=== PATIENT | male | born 1950 | race Caucasian/White ===

== ENCOUNTER 2024-03-12 06:29 | Outpatient (REF) | payer MEDICARE, SELFPAY ==
[2024-03-12 07:02] LABS: Basophils Percent Auto 0.9 % (0-2); Eosinophils Absolute Auto 0.2 X10*3/uL (0.0-0.4); Eosinophils Percent Auto 6.9 % (0-4); Hematocrit 37.6 % (42.0-52.0); Hemoglobin 11.3 g/dl (14.0-18.0); Imm Gran Abs Auto 0.01 X10*3/uL (0.00-0.03); Imm Gran Pct Auto 0.3 % (0.0-0.4); Lymphocytes Absolute Auto 1.2 X10*3/uL (1.2-4.9); Lymphocytes Percent Auto 38.3 % (20-40); MANUAL DIFF FLAG SCAN; Mean Corpuscular HGB Conc 30.1 g/dl (31.0-36.0); Mean Corpuscular Hemoglobin 26.7 pg (27.0-33.0); Mean Corpuscular Volume 88.7 fL (80.0-98.0); Mean Platelet Volume 9.5 fL (9.4-12.4); Monocytes Absolute Auto 0.9 X10*3/uL (0.1-1.2); Neutrophils Absolute Auto 0.8 x10*3/uL (2.0-8.3); Neutrophils Percent Auto 24.6 % (45-73); Platelet Count 261 X10*3/uL (160-400); Red Blood Count 4.24 X10*6/uL (4.60-5.80); SCAN SMEAR FLAG 1; White Blood Count 3.2 X10*3/uL (4.8-10.8)
[2024-03-12 07:24] LABS: SLIDE REVIEW VERIFIED
== END 2024-03-12 06:30 | disposition home or self-care (01) ==
LOC: HO.MMNH1L 06:29
PROVIDERS: Visit Provider Nurse Practitioner
DX: M62.521 Muscle wasting and atrophy, not elsewhere classified, right upper arm (principal); E11.40 Type 2 diabetes mellitus with diabetic neuropathy, unspecified; N18.32 Chronic kidney disease, stage 3b
CPT/HCPCS: 36415; 80053; 85025

== ENCOUNTER 2024-05-18 06:59 | Outpatient (REF) | payer MEDICARE, SELFPAY ==
--- OUTSIDE RECORDS SUMMARY | 2024-05-18 07:02 | XMS_ITS | Data Portability ---
Author Organization [place] [facility] Address [address] [place] [address] Care Team Providers Care Teacher'S Aide Name Role Phone HYUN FALCON Primary Care Provider Assessment Encounter Date Assessment Date Assessment LastModified by Organization Details LastModified Time 12/20/2018 12/20/2018 Overview/History : 68 yo male new to and this provider; his PMH includes Diabetes, HTN, HLD, CKD; Patient presents with complain of dysuria, increased urinary frequency, cloudy and foul smelling urine X3d. Patient reports being diagnosed with UTI 10d ago and treated with macrobid for 5 days. Finished course of abx 7days ago; today reports symptoms are worsening. Denied fever, chills, nausea, vomiting, abdominal/back/f lank pain. Exam: VS: BP 160/80; HR 56; RR 18; SpO2 97%; temp 96.8F Patient is an obese male well appearing, no acute distress, non-toxic appearance; alert and oriented X4; ambulates independently without difficulty Heart sounds are regular rate and rhythm; no audible murmurs, rubs, or gallops No signs of respiratory distress. Lungs are clear to auscultation in all fileds Abdomen is soft, non tender, non distended. Bowel sounds are normoactive and present in all quadrants; No CVA or suprapubic tenderness Lower extremities without edema, erythema or cyanosis DDx considered, but not limited to: UTI - most likely dx based on clinical presentation; dysuria, urinary frequency, cloudy urine Pyonephritis - unlikely; no fever, chills, CVA tenderness BPH - unlikely; no prior hx; patient is followed by urology STI/candidiasis - unlikely; no penile rash or discharge Work up/Results: Urine dipstick - Leuk +3; Nitrates +3; Blood +3 Urine culture - pending; (reviewed urine cx from 12/10/18 - mixed becky, contaminated sample) Plan/Discussion: - patient was recently diagnosed with UTI and treated with macrobid; reviewed ED records: urine cx was contaminated; possible resistance to macrobid; Today urine dipstick is positive for leukocytes, nitrates, and blood; will order cx to assess for sensitivity - start Keflex 500mg PO TID X7d; first dose given on scene - advised drinking plenty of fluids to maintain hydration status - follow up with PCP as needed within 3-5 days or sooner if symptoms worsen or do not improve - advised to seek immediate medical attention/911/ED if symptoms worsen or if develops fever, nausea, vomiting, severe abdominal/back/f lank pain, retaining urine for more than 12h - patient expressed understanding and agreed to tx plan In order to obtain further information and compare any laboratory results/values, I have accessed patient records on the [employer]. This information was pertinent in my medical decision making today. Time On Scene with Patient: 00:28:35 krissy Not available 12/20/2018 10:34:47 Plan of Treatment Reminders Order Date Submit Date Provider Last Modified By Organization Details Last Modified Time Details Appointments None recorded. Lab urinalysis , dipstick 2018 krissy Spr - Home, [address] [place] [address], [id number], 9 09:54:29 culture, urine - Collected by [facility] 2018 MARQUISE [facility] (Centralized Electronic Ordering - All Locations), Patient Can Go To The Location Of Their Choice, [id number] 9 13:06:07 Referral None recorded. Procedures None recorded. Surgeries None recorded. Imaging None recorded. Medication Orders cephalexin 500 mg capsule 2018 019 nyuzych [id number], [address] [place], [address], 9 09:54:29 Keflex 500 mg capsule 2018 019 INTERFACE [id number], [address] [place], [address], 9 09:54:31 Patient TargetsNo targets recorded. Patient Instructions Encounter Date Encounter Id Patient Instructions Last Modified By Organization Details Last Modified Time 12/20/2018 [id number] URINARY TRACT INFECTION INSTRUCTIONS YOU HAVE A UTI. PLEASE INCREASE YOUR FLUID INTAKE AND TAKE THE ANTIBIOTICS PRESCRIBED. FOLLOW UP WITH YOUR PCP FOR CONTINUED MONITORING OF YOUR SYMPTOMS. SEEK IMMEDIATE MEDICAL ATTENTION IF ANY INCREASED ABDOMINAL PAIN, VOMITING, FEVER, UNABLE TO KEEP FLUIDS DOWN, OR ANY OTHER WORSENING SYMPTOMS. BASIC INFORMATION Urinary tract infections(UTI) can involve any portion of the urinary tract. The most common presentation is a bladder infection/cystitis, which usually presents with urinary frequency, burning with urination, urgency, foul smelling cloudy urine and occasionally blood. Kidney infections are less frequent, but more serious, and present with fever, flank pain, malaise and sometimes shaking chills. UTI? s are common in women because of the female anatomy, and much less common in males. INSTRUCTIONS Drink plenty of fluid, water is best. Drinking fluids will help to flush the bacteria from your body. Urinate every 2-3 hours Wear cotton underwear and avoid Nylon, Spandex and Lycra which tend to trap moisture and thong underwear which may facilitate UTI? s . Avoid tub baths Avoid using Super Tampons Use only mild unscented soap to wash your genitals, such as Dove or Ivory, avoid heavily scented body washes. If you are sexually active urinate as soon as possible after intercourse. Yogurt and probiotics may help to establish a more healthy genital environment, and aid in prevention. MEDICATIONS 1.Antibiotics: Usually prescribed if you have a UTI, there are many different effective antibiotics available. It is important that you complete the course of antibiotics you are given. You should feel some improvement within 24-48 hours, if you do not it may be that the bacteria causing your infection is resistant to the prescribed medication. If a urine culture is obtained it will usually take at least 3-4 days to get the final result. 2. Anesthetic/Pain relievers: Phenazopyridine (Pyridium, Uribelle, AZO) is an anesthetic excreted in the urine. This medicine will turn your urine BRIGHT ORANGE! This is normal, and may stain your underwear can contacts. Take this medication as directed with food. 3. Tylenol and Ibuprofen can be helpful for the pain, fever and body aches that can be associated with a kidney infection. Please follow recommended dosing instructions on the bottle. FOLLOW UP 1. If your symptoms are not improving in 24-48 hours 2. If your symptoms are getting more severe 3. Any unusual vaginal discharge 4. Symptoms recur after you complete medication SEEK CARE IMMEDIATELY IF 1.You have shaking chills or temperature over 101.5 2. Severe flank pain 3. Persistent vomiting, unable to keep fluids or medicine down. 4. Worse despite medication. If you develop any new or worsening symptoms and need after hours care, please go to nearest ER and/or call 911. If you have additional concerns or develop a change in your condition between 8am-10pm, please call [facility] at [phone] to help navigate your care. krissy Not available 12/20/2018 09:54:27 Reason for Referral None Reported. Results Created Date Observation Date Name Description Value Unit Range Abnormal Flag Note LastModifiedBy Organization Detail LastModifiedTime 12/21/1912/20/2018 urina lysis , dipst ick Appearance cloudy Not Available Spr - [facility] [address] [place], [address], 12/20/2018 09:43:21 12/21/1912/20/2018 urina lysis , dipst ick Color yellow Not Available Spr - Home [address] [place], [address], 12/20/2018 09:43:21 12/21/1912/20/2018 urina lysis , dipst ick Glucose negati ve Not Available Spr - Home [address] [place], [address], 12/20/2018 09:43:21 12/21/19 19 12/20/2018 urina lysis , dipst ick Bilirubin negati ve Not Available Spr - Home [address] [place], [address], 12/20/2018 09:43:21 12/21/19 19 12/20/2018 urina lysis , dipst ick Ketones NEG Not Available Spr - Home [address] [place], [address], 12/20/2018 09:43:21 12/21/19 19 12/20/2018 urina lysis , dipst ick Sp. Bradford 1.030 Not Available Spr - Home [address] [place], [address], 12/20/2018 09:43:21 12/21/19 19 12/20/2018 urina lysis , dipst ick Blood +++ Not Available Spr - Home [address] [place], [address], 12/20/2018 09:43:21 12/21/1912/20/2018 urina lysis , dipst ick pH 5.0 Not Available Spr - Home [address] [place], [address], 12/20/2018 09:43:21 12/21/1912/20/2018 urina lysis , dipst ick Protein positi ve Not Available Spr - Home [address] [place], [address], 12/20/2018 09:43:21 12/21/1912/20/2018 urina lysis , dipst ick Urobilirubin negati ve Not Available Spr - Home [address] [place], [address], 12/20/2018 09:43:21 12/21/1912/20/2018 urina lysis , dipst ick Nitrites +++ Not Available Spr - [facility] [address] [place], [address], 12/20/2018 09:43:21 12/21/1912/20/2018 urina lysis , dipst ick Leukocytes +++ Not Available Spr - H [place]me [address] [place], [address], 12/20/2018 09:43:21 12/21/19 19 12/20/2018 cultu re, urine specimen description URINE Not Available [facility] ([facility] - All Locations) Patient Can Go To The Location Of Their Choice, [id number] 12/22/2018 13:06:06 12/21/1912/20/2018 cultu re, urine special requests NONE Not Available [facility] ([facility] Ordering - All Locations) Patient Can Go To The Location Of Their Choice, [id number] 12/22/2018 13:06:06 12/21/1912/22/2018 cultu re, urine culture >100,0 00 COL/ML KLEBSI BAILEY PNEUMO NIAE abnormal Not Available [facility] (Centralized Electronic Ordering - All Locations) Patient Can Go To The Location Of Their Choice, [id number] 12/22/2018 13:06:06 12/21/1912/22/2018 cultu re, urine report status FINAL 2018 Not Available [facility] (Centralized Electronic Ordering - All Locations) Patient Can Go To The Location Of Their Choice, [id number] 12/22/2018 13:06:06 12/21/1912/22/2018 cultu re, urine organism ORGANI SM >100,0 00 COL/ML KLEBSI BAILEY PNEUMO NIAE Not Available [facility] (Centralized Electronic Ordering - All Locations) Patient Can Go To The Location Of Their Choice, 12/22/2018 13:06:06 12/21/1912/22/2018 cultu re, urine method METHOD MIN. INHIB. CONC. (MCG/M L) Not Available [facility] (Centralized Electronic Ordering - All Locations) Patient Can Go To The Location Of Their Choice, 12/22/2018 13:06:06 12/21/1912/22/2018 cultu re, urine ampicillin AMPICI LLIN RESIST ANT resistant Not Available [facility] (Centralized Electronic Ordering - All Locations) Patient Can Go To The Location Of Their Choice, 12/22/2018 13:06:06 12/21/1912/22/2018 cultu re, urine ampicillin/s ulbactam AMPICI LLIN/S ULBACT AM SUSCEP TIBLE susceptib le Not Available [facility] (Centralized Electronic Ordering - All Locations) Patient Can Go To The Location Of Their Choice, 12/22/2018 13:06:06 12/21/1912/22/2018 cultu re, urine amoxicillin/ clavulanic acid AMOXIC ILLIN/ CLAVUL AN SUSCEP TIBLE susceptib le Not Available [facility] (Centralized Electronic Ordering - All Locations) Patient Can Go To The Location Of Their Choice, 12/22/2018 13:06:06 12/21/1912/22/2018 cultu re, urine cefazolin CEFAZO ROSS SUSCEP TIBLE susceptib le Not Available [facility] (Centralized Electronic Ordering - All Locations) Patient Can Go To The Location Of Their Choice, 12/22/2018 13:06:06 12/21/1912/22/2018 cultu re, urine cefepime CEFEPI ME SUSCEP TIBLE susceptib le Not Available [facility] (Centralized Electronic Ordering - All Locations) Patient Can Go To The Location Of Their Choice, 12/22/2018 13:06:06 12/21/1912/22/2018 cultu re, urine ceftriaxone CEFTRI AXONE SUSCEP TIBLE susceptib le Not Available [facility] (Centralized Electronic Ordering - All Locations) Patient Can Go To The Location Of Their Choice, 12/22/2018 13:06:06 12/21/1912/22/2018 cultu re, urine ciprofloxaci n CIPROF LOXACI N SUSCEP TIBLE susceptib le Not Available [facility] (Centralized Electronic Ordering - All Locations) Patient Can Go To The Location Of Their Choice, 12/22/2018 13:06:06 12/21/1912/22/2018 cultu re, urine gentamicin GENTAM ICIN SUSCEP TIBLE susceptib le Not Available [facility] (Centralized Electronic Ordering - All Locations) Patient Can Go To The Location Of Their Choice, 12/22/2018 13:06:06 12/21/1912/22/2018 cultu re, urine levofloxacin LEVOFL OXACIN SUSCEP TIBLE susceptib le Not Available [facility] (Centralized Electronic Ordering - All Locations) Patient Can Go To The Location Of Their Choice, 12/22/2018 13:06:06 12/21/1912/22/2018 cultu re, urine meropenem MEROPE NEM SUSCEP TIBLE susceptib le Not Available [facility] (Centralized Electronic Ordering - All Locations) Patient Can Go To The Location Of Their Choice, 12/22/2018 13:06:06 12/21/1912/22/2018 cultu re, urine nitrofuranto in NITROF URANTO IN RESIST ANT resistant Not Available [facility] (Centralized Electronic Ordering - All Locations) Patient Can Go To The Location Of Their Choice, [id number] 12/22/2018 13:06:06 12/21/1912/22/2018 cultu re, urine piperacillin /tazobactam PIPERA CILLIN /TAZOB AC SUSCEP TIBLE susceptib le Not Available [facility] (Centralized Electronic Ordering - All Locations) Patient Can Go To The Location Of Their Choice, [id number] 12/22/2018 13:06:06 12/21/1912/22/2018 cultu re, urine trimeth/sulf amethox TRIMET H/SULF AMETHO X SUSCEP TIBLE susceptib le Not Available [facility] (Centralized Electronic Ordering - All Locations) Patient Can Go To The Location Of Their Choice, [id number] 12/22/2018 13:06:06 12/21/1912/22/2018 cultu re, urine tetracycline TETRAC YCLINE SUSCEP TIBLE susceptib le Not Available [facility] (Centralized Electronic Ordering - All Locations) Patient Can Go To The Location Of Their Choice, [id number] 12/22/2018 13:06:06 Result Notes None recorded. Medical Equipment None Reported. Allergies No known drug allergies Medications Name Sig Start Date Stop Date Status Note LastModified by Organization Details LastModified Time atorvastatin 40 mg tablet active Not Available Not Available Not Available metformin 500 mg tablet active Not Available Not Available Not Available metoprolol succinate ER 50 mg tablet,exten ded release 24 hr active Not Available Not Available Not Available Keflex 500 mg capsule Take 1 capsule 3 times a day by oral route for 7 days. 2018 active Not Available Not Available Not Avai lable lisinopril 20 mg tablet active Not Available Not Available Not Available isosorbide mononitrate ER 30 mg tablet,exten ded release 24 hr active Not Available Not Available Not Available spironolacto ne 25 mg tablet active Not Available Not Available Not Available amlodipine 10 mg tablet active Not Available Not Available Not Available bumetanide 1 mg tablet active Not Available Not Available No t Available ammonium lactate 12 % topical cream 12/20 completed Not Available Not Available Not Available lisinopril 40 mg tablet active Not Available Not Available Not Available sertraline 50 mg tablet active Not Available Not Available Not Available neomycin 3.5 mg/g-polymyx in B 10,000 unit/g-dexam eth 0.1 % eye oint active Not Available Not Available Not Available Novolog FlexPen U-100 Insulin aspart 100 unit/mL (3 mL) subcutaneous active Not Available Not Available Not Available nitrofuranto in monohydrate/ macrocrystal s 100 mg capsule 12/20 completed Not Available Not Available Not Available BD Ultra-Fine Short Pen Needle 31 gauge x 5/16 active Not Available Not Available Not Available Lantus Solostar U-100 Insulin 100 unit/mL (3 mL) subcutaneous pen active Not Available Not Available Not Available Vitals Date Recorded Oxygen saturation Oxygen saturation in Arterial blood by Pulse oximetry Heart rate Respiratory rate Body temperature Systolic blood pressure Diastolic blood pressure Provider Name and Address Organization Details Last Updated DateTime 9 97 % 97 % 56 /min 18 /min 96.8 [degF] 160 mm[Hg] 80 mm[Hg] Not Available [facility] 9 09:32:19 Social History Question Answer Notes LastModified by Organizat ion Details LastModified Time Tobacco Smoking Status Never Smoker LIDA CASAS [address] [place], [address], [place] [facility] 12/20/2018 09:34:50 Do You Have An Advance Directive? No Information not available 12/20/2018 What Is Your Code Status? Full Code Information not available 12/20/2018 How Many Days In The Past Year Have You Had A Heavy Drinking Consumption (4+ Female, 5+ Male)? 0 Information not available 12/20/2018 Within The Past 12 Months, Has It Happened That The Food You Bought Just Didn't Last And You Didn't Have Money To Get More. Obese Information not available 12/20/2018 Within The Past 12 Months, Have You Worried That Your Food Would Run Out Before You Got Money To Buy More. Yes Information not available 12/20/2018 Fall Risk: Do You Feel Unsteady When Standing Or Walking? No Information not available 12/20/2018 Marital Status krissy Informatio n not available 12/20/2018 What Was The Date Of Your Most Recent Tobacco Screening? 12/20/2018 Information not available 12/21/2018 Sex: Unknown Functional Status None recorded. Mental Status None recorded. Family History Relationship Description Onset Age of this Age Resolved Age Notes LastModified by Organization Details LastModified Time Father Diabetes mellitus krissy Not available 2018 09:33:51 Sister Malignant neoplasm of brain [email or web address] Not available 2018 09:34:19 Medical History Condition Response Diabetes Y Coronary Artery Disease N High Cholesterol Y Pulmonary Embolism N Cancer N Hypertension Y Stroke N Asthma N COPD N Depression N Kidney Disease Y Past Encounters Encounter ID Performer Location Encounter Start Date Encounter Closed Date Diagnosis/Indication Diagnosis SNOMED-CT Code Diagnosis ICD10 Code Diagnosis Note [id number] LIDA CASAS [facility] [place] - [facility] [address] [place] [address] 12/20/2018 09:28:30 12/22/2018 11:41:07 Urinary tract infectious disease 54075052 N39.0 Acute condition Increased frequency of urination 265048949 R35.0 Dysuria 23704024 R30.9 Diabetes mellitus 604343 09 E11.9 chronic condition Health Concerns Section Related Observation LastModified by Organization Detai ls LastModified Time None Recorded Concern Status LastModified by Organization Details LastModified Time None Recorded Advance Directives Directive N: Payers Encounter Date Sequence Insurance Name Policy Number Policy Vasquez Covered Member ID Vasquez Member ID Guarantor Name 12/20/2018 1 [place] [employer] Hardeep Howard [id number] Hardeep Beasleycarolyn 12/20/2018 2 [facility] (MEDICARE SUPPLEMENT) Hardeep Howard [id number] Hardeep Howard Notes Date Note Type Note Provider Name and Address Organization Details Recorded Time 12/20/2018 text/html Mr. Howard is a 68 yo male new to and this provider who presents with complain of dysuria, increased urinary frequency, cloudy and foul smelling urine X3d. Patient reports being diagnosed with UTI 10d ago and treated with macrobid for 5 days. Finished course of abx 7days ago; today reports symptoms are worsening. Denied fever, chills, nausea, vomiting, abdominal/back/f lank pain.Comorbiditi es: Diabetes, HTN, HLD, CKD LIDA CASAS [address], [place], [address], [place] [facility] 12/20/2018 10:34:52
--- OUTSIDE RECORDS SUMMARY | 2024-05-18 07:02 | XMS_ITS | Encounter Summary ---
Author Organization [facility]. Address [address] [address] Phone Care Team Providers Care Inside Finisher Name Role Phone Maximiliano Schmidt MD Primary Care Provider [phone] Encounter Details Date Type Department Care Team (Late st Contact Info) Description 05/07/2024 Treatment [facility]. [address] [phone] Marco A Sanchez MD [address] [address] Social History Tobacco Use Types Packs/Day Years Used Date Smoking Tobacco: Never Smokeless Tobacco: Never Alcohol Use Standard Drinks/Week Comments No 0 (1 standard drink = 0.6 oz pur e alcohol) Sex and Gender Information Value Date Recorded Sex Assigned at Not on file Legal Sex Male 5:06 PM EST Gender Identity Not on file Sexual Orientation Not on file documented as of this encounter Miscellaneous Notes * Dialysis Note - Marco A Sanchez MD - 05/07/2024 12:00 AM EST Patient: Hardeep Howard : 1950 Note Type: Dialysis Rounds-Basic Service Date: 05/07/2024 This patient was personally seen for a basic visit as part of routine monthly dialysis care for end stage renal disease. Attending Health And Safety Manager: MARCO A SANCHEZ MD Dialysis Location: [facility] Schedule: Shift: 1 OVERVIEW Patient is stable. ADEQUACY ASSESSMENT Kt/V, Natural Log 1.68 (02/13/24) 1.36 (02/01/24) UREA REDUCTION RATIO (%) 77 (02/13/24) 72 (02/01/24) BUN 35 (02/13/24) 50 (02/01/24) 47 (09/17/23) BUN Post Dialysis 8 (02/13/24) 14 (02/01/24) Creatinine 4.89 (02/13/24) 4.50 (02/01/24) 1.95 (09/17/23) Bicarbonate (CO2) 23 (02/13/24) 19 (02/01/24) 20 (09/17/23) Sodium 132 (02/13/24) 130 (02/01/24) 139 (09/17/23) ANEMIA ASSESSMENT Hgb 9.0 (02/13/24) 8.9 (02/03/24) 9.8 (02/01/24) Iron Saturation (TSat) 9 (02/13/24) 13 (02/01/24) Ferritin 969 (02/13/24) 836 (02/01/24) Iron 18 (02/13/24) 34 (02/01/24) TIBC 196 (02/13/24) 272 (02/01/24) MCV 90.5 (02/13/24) 92.1 (02/01/24) Platelets 282 (02/13/24) 343 (02/01/24) BMM ASSESSMENT Calcium, Adjusted Total 9.8 02/13/24 9.8 02/01/24 Calcium 9.7 02/13/24 9.8 02/01/24 9.2 09/17/23 Phosphorus, Serum 3.1 02/13/24 5.4 02/01/24 Phosphorus 3.6 09/17/23 3.6 09/17/23 3.8 06/12/23 Ca*PO4 30.1 02/13/24 52.9 02/01/24 PTH, Intact 140 02/01/24 PTH 101 09/17/23 Vitamin D, 25-Hydroxy 20 02/01/24 Vitamin D, 25-OH, Total 27.6 09/17/23 Magnesium 2.0 02/13/24 2.6 02/01/24 Alkaline Phosphatase 108 02/13/24 111 02/01/24 Aluminum 9 02/01/24 NUTRITION ASSESSMENT Albumin 3.9 02/13/24 4.6 02/01/24 4.2 09/17/23 Potassium 3.6 02/13/24 4.2 02/01/24 5.2 09/17/23 Hemoglobin A1C 5.2 02/01/24 ADDITIONAL LABS White Blood Cells 13.1 (02/13/24) 12.2 (02/01/24) Cholesterol 83 (02/01/24) HDL 33 (02/01/24) LDL-Calc 6 (02/01/24) Triglycerides 219 (02/01/24) Hep B Surface Antibody <4 (02/01/24) Uric Acid 7.6 (02/01/24) 8.0 (09/17/23) Signed by: MARCO A SANCHEZ MD on 05/07/2024 at 08:25:55 AM documented in this encounter Plan of Treatment Not on file documented as of this encounter Visit Diagnoses Not on filedocumented in this encounter Care Teams Inside Finisher Relationship Specialty Start Date End Date Maximiliano Schmidt MD [address] [place] [phone] PCP - General Internal Medicine 07/29/23 documented as of this encounter
--- OUTSIDE RECORDS SUMMARY | 2024-05-18 07:02 | XMS_ITS | Encounter Summary ---
Author Organization [facility] Address [address] [facility] [address] [place] [address] Phone Care Team Providers Care Cane Burner Name Role Phone Maximiliano Schmidt MD Primary Care Provider [phone] [phone] Encounter Details Date Type Department Care Team ([facility] st Contact Info) Description 09/09/2020 Orders Only [facility] [address] [facility] [address] [facility] [address] [facility] [address] [place] [phone] Jr Martinez MD [address] [facility] [address] [place] [phone] Hyperkalemia Social History Tobacco Use Types Packs/Day Years [...] on file documented as of this encounter Plan of Treatment Not on file documented as of this encounter Procedures Procedure Name Priority Date/Time Associated Diagnosis Comments BASIC METABOLIC PANEL Routine 11/04/2020 8:40 AM EDT Hyperkalemia documented in this encounter Results * (ABNORMAL) Basic metabolic panel (11/04/2020 8:40 AM EDT) Glucose 193(H) (70-99) MG/DL [facility] BUN 38(H) (8-23) MG/DL [facility] Creatinine 1.5(H) (0.7-1.2) MG/DL [facility] Sodium 141 (133-145) MMOL/L [facility] Potassium 4.5 (3.6-5.2) MMOL/L [facility] Chloride 104 (98-107) MMOL/L [facility] Bicarbonate (CO2) 21(L) (22-29) MMOL/L [facility] Anion Gap 16 (4-17) [facility] Calcium 9.3 (8.6-10.5) MG/DL [facility] Est GFR Non 47 ML/MIN/1.7 3 M2 [facility] Comment: Creatinine based estimated glomerular filtration rate (eGFR) is calculated using the Chronic Kidney Disease Epidemiology Collaboration (CKD-EPI). The CKD-EPI creatinine equation has not been validated in children (<18 years), women or in some racial or ethnic subgroups other than Caucasians and Americans. EST GFR 55 ML/MIN/1.7 3 M2 [facility] Comment: Creatinine based estimated glomerular filtration rate (eGFR) is calculated using the Chronic Kidney Disease Epidemiology Collaboration (CKD-EPI). The CKD-EPI creatinine equation has not been validated in children (<18 years), women or in some racial or ethnic subgroups other than Caucasians and Americans. Testing performed or reported by [facility], a Service of [facility], [address] [place] [address] Renetta Grider MD, Database Engineer [facility]# [id number] Blood (Blood, Venous) 11/04/2020 8:40 AM EDT 11/04/2020 8:42 AM EDT Jr Martinez MD LAB BLOOD ORDERABLES Final Resul t [facility] documented in this encounter Visit Diagnoses Diagnosis Hyperkalemia documented in this encounter Care Teams Cane Burner Relationship Specialty Start Date End Date Maximiliano Schmidt MD [address] [place] [phone] PCP - General Internal Medicine 07/29/23 documented as of this encounter
--- OUTSIDE RECORDS SUMMARY | 2024-05-18 07:02 | XMS_ITS | Encounter Summary ---
Author Organization [facility] Address [address] [address] Phone Care Team Providers Care Procurement Professional Name Role Phone Maximiliano Schmidt MD Primary Care Provider [phone] [phone] Encounter Details Date Type Department Care Team (Late st Contact Info) Description 05/12/2024 Treatment [facility] [address] [phone] Marco A Aleman MD [address] [address] End stage renal disease; Dependence on renal dialysis Social History Tobacco Use Types Packs/Day Years [...] Notes * Dialysis Note - Marco A Aleman MD - 05/12/2024 12:00 AM EST Patient: Hardeep Howard : 1950 Note Type: Dialysis Rounds-Comp Service Date: 05/12/2024 This patient was personally seen for a complete visit as part of routine monthly dialysis care for end stage renal disease. Attending Chemistry Account Manager: MARCO A ALEMAN MD Dialysis Location: [facility] Schedule: Shift: 1 OVERVIEW Patient is stable. HOME MEDICATIONS Medications reviewed. BP AND FLUID ASSESSMENT Acceptable blood pressure. Fluid status acceptable. ADEQUACY ASSESSMENT Target met. Prescription compliance acceptable. Kt/V, Natural Log 1.68 (02/13/24) 1.36 (02/01/24) UREA REDUCTION RATIO (%) 77 (02/13/24) 72 (02/01/24) BUN 35 (02/13/24) 50 (02/01/24) 47 (09/17/23) BUN Post Dialysis 8 (02/13/24) 14 (02/01/24) Creatinine 4.89 (02/13/24) 4.50 (02/01/24) 1.95 (09/17/23) Bicarbonate (CO2) 23 (02/13/24) 19 (02/01/24) 20 (09/17/23) Sodium 132 (02/13/24) 130 (02/01/24) 139 (09/17/23) ACCESS ASSESSMENT Vascular access examined. ANEMIA ASSESSMENT Anemia targets met. Hemoglobin not at target. Continue current ADEEL dose. Iron deficiency noted. Hgb 9.0 (02/13/24) 8.9 (02/03/24) 9.8 (02/01/24) Iron Saturation (TSat) 9 (02/13/24) 13 (02/01/24) Ferritin 969 (02/13/24) 836 (02/01/24) Iron 18 (02/13/24) 34 (02/01/24) TIBC 196 (02/13/24) 272 (02/01/24) MCV 90.5 (02/13/24) 92.1 (02/01/24) Platelets 282 (02/13/24) 343 (02/01/24) BMM ASSESSMENT PTH within target. Phosphorus controlled. Calcium controlled. Bone and mineral metabolism parameters reviewed. Calcium, Adjusted Total 9.8 02/13/24 9.8 02/01/24 [...] 02/01/24 Aluminum 9 02/01/24 NUTRITION ASSESSMENT Albumin not at goal. Albumin 3.9 02/13/24 4.6 02/01/24 4.2 09/17/23 Potassium 3.6 02/13/24 4.2 02/01/24 5.2 09/17/23 Hemoglobin A1C 5.2 02/01/24 PHYSICAL EXAM Exam performed. Vital Signs Reviewed. Lungs - Clear. CV - Blood pressure noted. No edema. EXT - No ulcers. ADDITIONAL LABS White Blood Cells 13.1 (02/13/24) 12.2 (02/01/24) Cholesterol 83 (02/01/24) HDL 33 (02/01/24) LDL-Calc 6 (02/01/24) Triglycerides 219 (02/01/24) Hep B Surface Antibody <4 (02/01/24) Uric Acid 7.6 (02/01/24) 8.0 (09/17/23) Signed by: MARCO A ALEMAN MD on 05/12/2024 at 10:53:07 PM documented in this encounter Plan of Treatment Not on file documented as of this encounter Visit Diagnoses Diagnosis End stage renal disease Dependence on renal dialysis documented in this encounter Care Teams Procurement Professional Relationship Specialty Start Date End Date Maximiliano Schmidt MD [address] [place] [phone] PCP - General Internal Medicine 07/29/23 documented as of this encounter
--- OUTSIDE RECORDS SUMMARY | 2024-05-18 07:02 | XMS_ITS | Encounter Summary ---
Author Organization [facility]. Address [address] [address] Phone Care Team Providers Care Ground Crewman Mission Support Name Role Phone Maximiliano Schmidt MD Primary Care Provider [phone] [phone] Encounter Details Date Type Department Care Team (Late st Contact Info) Description 05/05/2024 Treatment [facility]. [address] [phone] Marco A Sanchez MD [address] [phone] Social History Tobacco Use Types [...] Note - Marco A Sanchez MD - 05/05/2024 12:00 AM EST Patient: Hardeep Howard : 1950 Note Type: Dialysis Rounds-Basic Service Date: 05/05/2024 This patient was personally seen for a basic visit as part of routine monthly dialysis care for end stage renal disease. Attending Dietitian Teaching: MARCO A SANCHEZ MD Dialysis Location: D[facility]YSIS Schedule: Shift: 1 OVERVIEW Patient is [...] Signed by: MARCO A SANCHEZ MD on 05/05/2024 at 08:45:32 AM documented in this encounter Plan of Treatment Not on file documented as of this encounter Visit Diagnoses Not on filedocumented in this encounter Care Teams Ground Crewman Mission Support Relationship Specialty Start Date End Date Maximiliano Schmidt MD [address] [place] [phone] PCP - General Internal Medicine 07/29/23 documented as of this encounter
--- OUTSIDE RECORDS SUMMARY | 2024-05-18 07:02 | XMS_ITS | Encounter Summary ---
Author Organization [facility]. Address [address] [address] Phone Care Team Providers Care Electrical Maintenance Mechanic Name Role Phone Maximiliano Schmidt MD Primary Care Provider [phone] [phone] Encounter Details Date Type Department Care Team (Late st Contact Info) Description 04/25/2024 Treatment [facility]. [address] [phone] Marco A Sanchez MD [address] [phone] Social History Tobacco Use Types [...] Note - Marco A Sanchez MD - 04/25/2024 12:00 AM EST Patient: Hardeep Howard : 1950 Note Type: Dialysis Rounds-Basic Service Date: 04/25/2024 This patient was personally seen for a basic visit as part of routine monthly dialysis care for end stage renal disease. Attending Laundry Operator Wash Room: MARCO A SANCHEZ MD Dialysis Location: [facility] Schedule: Shift: 1 OVERVIEW Patient is [...] Signed by: MARCO A SANCHEZ MD on 04/25/2024 at 08:43:58 AM documented in this encounter Plan of Treatment Not on file documented as of this encounter Visit Diagnoses Not on filedocumented in this encounter Care Teams Electrical Maintenance Mechanic Relationship Specialty Start Date End Date Maximiliano Schmidt MD [address] [place] [phone] PCP - General Internal Medicine 07/29/23 documented as of this encounter
--- OUTSIDE RECORDS SUMMARY | 2024-05-18 07:02 | XMS_ITS | Clinical Summary ---
Author Organization [facility] Address [address] [facility] [address] [place] [address] Phone Care Team Providers Care Special Events Manager Name Role Phone Maximiliano Schmidt MD Primary Care Provider [phone] [phone] Allergies Active Allergy Reactions Criticality Noted Date Comments Other 05/31/2020 Tetanus Toxoid Other (see comments) 06/12/2021 Other reaction(s): flu like symptoms Other reaction(s): flu like symptoms Tetanus-Diphtheria Toxoids Td 07/23/2022 Not allergic Medications sertraline (ZOLOFT) 50 MG tablet Take 1 tablet by mouth 1 (one) time each day Active metFORMIN (GLUCOPHAGE) 500 MG tablet Take 1 tablet by mouth 3 (three) times a day Active insulin glargine (Lantus SoloStar) 100 UNIT/ML injection Active gemfibrozil (LOPID) 600 MG tablet Take 600 mg by mouth 1 Active atorvastatin (LIPITOR) 40 MG tablet Take 40 mg by mouth 5 Active NovoLOG FLEXPEN 100 UNIT/ML injection PLEASE SEE ATTACHED FOR DETAILED DIRECTIONS 3 Active ipratropium (ATROVENT) 0.03 % nasal spray SPRAY 1 SPRAY IN EACH NOSTRIL 2 TIMES A DAY NEEDED FOR NASAL CONGESTION 3 Active lisinopril 40 MG tablet Take 1 tablet (40 mg total) by mouth 1 (one) time each day 90 tablet 3 4 Active Empagliflozin (Jardiance) 10 MG tablet Take 10 mg by mouth 1 (one) time each day in the morning 30 tablet 5 4 Active isosorbide mononitrate (IMDUR) 60 MG 24 hr tablet TAKE 1 TABLET BY MOUTH 1 TIME EACH DAY. 90 tablet 3 4 Active metoprolol succinate XL (TOPROL XL) 50 MG 24 hr tablet TAKE 1 AND 1/2 TABLETS DAILY BY MOUTH 45 tablet 6 4 Active spironolactone (ALDACTONE) 25 MG tablet TAKE 1 TABLET BY MOUTH EVERY DAY 90 tablet 4 4 Active NIFEdipine XL (PROCARDIA XL) 30 MG 24 hr tablet TAKE 1 TABLET BY MOUTH 1 TIME EACH DAY DO NOT CRUSH, CHEW, OR SPLIT. 30 tablet 11 4 Active Active Problems Problem Noted Date Diagnosed Date Dyslipidemia 02/04/2023 02/04/2023 Severe obesity 02/04/2023 02/04/2023 [facility] current use of oral hypoglycemic drug 02/04/2023 02/04/2023 [facility] current use of insulin 07/23/2022 02/04/2023 Deafness of right ear 07/18/2022 02/04/2023 Sensation of blocked ear 07/09/2022 Patient encounter status 03/30/2021 Anxiety 11/10/2020 Extreme obesity with alveolar hypoventilation Obese class I 11/10/2020 Pulmonary hypertension 11/10/2020 Chronic kidney disease 05/31/2020 Hypertensive renal disease 05/31/2020 Essential hypertension 05/31/2020 Proteinuria 05/31/2020 Renal disorder due to type 2 diabetes mellitus 0 05/31/2020 Type 2 diabetes mellitus 02/06/2016 Onychomycosis 02/06/2016 Sleep apnea Resolved Problems Problem Noted Date Diagnosed Date Resolved Date Vitamin D deficiency 11/10/2020 023 Chronic diastolic heart failure 05/31/2020 05/31/2020 Encounters Date Type Department Care Team Description 05/12/2024 Treatment [facility] [address] [phone] Obed Aleman MD End stage renal disease; Dependence on renal dialysis 05/07/2024 Treatment [facility] [address] [phone] Obed Aleman MD 05/05/2024 Treatment [facility] [address] [place] [address] Obed Aleman MD 04/25/2024 Treatment [facility] [address] [place] [address] Obed Aleman MD 04/14/2024 Treatment [facility] [address] [place] [address] Obed Aleman MD 04/07/2024 Treatment [facility] [address] [place] [address] Obed Aleman MD 04/02/2024 Treatment [facility] [address] [phone] Obed Aleman MD 03/26/2024 Treatment [facility] [address] [phone] Obed Aleman MD 03/12/2024 Treatment [facility] [address] [phone] Obed Aleman MD 02/29/2024 Treatment [facility] [address] [phone] Obed Aleman MD 02/25/2024 Treatment [facility] [address] [phone] Obed Aleman MD 02/20/2024 Treatment [facility] [address] [place] [address] Obed Aleman MD from Last 3 Months Immunizations Name Administration Dates Next Due Influenza Whole 01/01/2019 Influenza, Quadrivalent, Wit h Preservative 02/20/2016 Influenza, Unspecified 12/15/2021,2020,01/15/2018,2016,01/19/2016 Pfizer SARS-COV-2 07/22/2021,,06/28/2020,2020 Pneumococcal Conjugate 04/03/2022 Pneumococcal Conjugate 13-Valent 12/11/2016 SARS-CoV-2, Unspecified 12/15/2021 Shingrix 12/29/2019 Family History Medical History Relation Comments Diabetes Brother 1 Diabetes Brother 2 Diabetes Father Cancer Mother Diabetes Sibling Cancer Sister Relation Status Comments Brother 1 Brother 2 Father Mother Sibling Sister Social History Tobacco Use Types Packs/Day Years Used Date Smoking Tobacco: Never Smokeless Tobacco: Never Tobacco Cessation:Counseling Given: No Alcohol Use Standard Drinks/Week Comments No 0 (1 standard drink = 0.6 oz pur e alcohol) Sex and Gender Information Value Date Recorded Sex Assigned at Not on file Legal Sex Male 5:06 PM EST Gender Identity Not on file Sexual Orientation Not on file Last Filed Vital Signs Vital Sign Reading Time Taken Comments Blood Pressure 112/58 07/29/2023 4:15 PM EDT Pulse 78 07/29/2023 4:15 PM EDT Temperature - - Respiratory Rate - - Oxygen Saturation 95% 07/29/2023 4:15 PM EDT Inhaled Oxygen Concentration - - Weight 106 kg (234 lb) 07/29/2023 4:15 PM EDT Height 175.3 cm (5' 9 ) 07/27/2019 12:00 PM EDT Body Mass Index 34.56 07/27/2019 12:00 PM EDT Plan of Treatment Health Maintenance Due Date Last Done Comments Hepatitis B Vaccine (1 of 5 - Risk Dialysis 4-dose series) 1971 Colorectal Cancer Screening: Annual FOBT 05/09/2000 Colorectal Cancer Screening: Colonoscopy 05/09/2000 Colorectal Cancer Screening: Sigmoidoscopy 05/09/2000 Diabetes: Ophthalmology Exam 04/08/2020 Diabetes: Pedal Pulse Checked 04/08/2020 Diabetes: Sensory Foot Exam 04/08/2020 Diabetes: Visual Foot Exam 04/08/2020 Pneumococcal Vaccine: 65+ Ye ars (2 of 2 - PPSV23 or PCV20) 05/29/2022 04/03/2022, 12/11/2016 Influenza Vaccine (#1) 2023 , 12/23/2020, 01/01/2019, Additional history exists Diabetes: Hemoglobin A1C 05/03/2024 02/01/2024, 09/0 11/2018 Procedures Procedure Name Priority Date/Time Associated Diagnosis Comments HEMOGLOBIN A1C Routine 02/01/2024 3:00 AM EST from Last 3 Months or Most Recently Relevant to Health Maintenance Results * Hemoglobin A1c (02/01/2024 3:00 AM EST) Hemoglobin A1C 5.2 <5.7 % [facility] Comment: Methodology: Enzymatic HbA1c (NGSP %) ?Suggested Diagnosis >6.4% ? Diabetic 5.7-6.4% ?Pre-Diabetic <5.7% ? Non-Diabetic Diabetic Glucose Control Evaluation: Therapeutic action suggested at >8.0% ADA recommends a glycemic goal of <7.0% 02/01/2024 3:00 AM EST 02/04/2024 1:24 PM EST Obed Aleman MD LAB BLOOD ORDERABLES Final Result APS [facility] [address] [place] [address] from Last 3 Months or Most Recently Relevant to Health Maintenance Insurance [facility] Member Subscriber Plan / Payer (Ef fective 2020-Present) Name:Hardeep Howard Relation to Subscriber:Self Name:Hardeep Howard Payer ID:[id number] (NAIC) Group ID:Not on file Type:Not on file Address: [facility] [id number] [place] [id number] MEDICARE [facility] MEDICARE Care Teams Special Events Manager Relationship Specialty Start Date End Date Maximiliano Schmidt MD [address] [place] [phone] PCP - General Internal Medicine 07/29/23
--- OUTSIDE RECORDS SUMMARY | 2024-05-18 07:02 | XMS_ITS | Encounter Summary ---
Author Organization [facility] Address [address] [place] [address] Phone Care Team Providers Care Branch Manager Name Role Phone Maximiliano Schmidt MD Primary Care Provider [phone] [phone] Encounter Details Date Type Department Care Team (Late st Contact Info) Description 08/24/2020 Orders Only [facility] [address] [place] [address] Provider, MD Laura [address] [place] [phone] Social History Tobacco Use Types Packs/Day Years [...] on file documented as of this encounter Progress Notes * Lewis Zamudio MD - 08/24/2020 11:09 AM EDT K was High - 5.9 I d/c'd Spironolactone Spoke to pt Low K diet Repeat labs next week - Saturday ordered documented in this encounter Plan of Treatment Not on file documented as of this encounter Procedures Procedure Name Priority Date/Time Associated Diagnosis Comments EXT RESULT ENTRY Routine 08/24/2020 documented in this encounter Results * EXT RESULT ENTRY (08/24/2020) us Historical Provider LAB BLOOD ORDERABLES Angelica l Result documented in this encounter Visit Diagnoses Not on filedocumented in this encounter Care Teams Branch Manager Relationship Specialty Start Date End Date Maximiliano Schmidt MD [address] [place] [phone] PCP - General Internal Medicine 07/29/23 documented as of this encounter
[2024-05-18 07:27] LABS: Basophils Absolute Auto 0.1 X10*3/uL (0.0-0.2); Basophils Percent Auto 0.6 % (0-2); Eosinophils Absolute Auto 0.3 X10*3/uL (0.0-0.4); Eosinophils Percent Auto 3.4 % (0-4); Hematocrit 33.3 % (42.0-52.0); Hemoglobin 10.5 g/dl (14.0-18.0); Lymphocytes Absolute Auto 1.5 X10*3/uL (1.2-4.9); Lymphocytes Percent Auto 14.9 % (20-40); MANUAL DIFF FLAG SCAN; Mean Corpuscular HGB Conc 31.5 g/dl (31.0-36.0); Mean Corpuscular Hemoglobin 28.8 pg (27.0-33.0); Mean Corpuscular Volume 91.2 fL (80.0-98.0); Mean Platelet Volume 9.2 fL (9.4-12.4); Monocytes Absolute Auto 0.9 X10*3/uL (0.1-1.2); Neutrophils Absolute Auto 6.9 x10*3/uL (2.0-8.3); Neutrophils Percent Auto 71.1 % (45-73); PLT CLUMP 1; Red Blood Count 3.65 X10*6/uL (4.60-5.80); Red Cell Distribution Width 18.4 % (11.0-16.0); SCAN SMEAR FLAG 1; White Blood Count 9.8 X10*3/uL (4.8-10.8)
[2024-05-18 07:32] LABS: Anion Gap 15 (12-20); Blood Urea Nitrogen 40 mg/dL (9-16); Calcium 9.8 mg/dL (8.4-10.2); Carbon Dioxide 21 mmol/L (22-29); Chloride 102 mmol/L (96-108); Glucose Random 169 mg/dL (60-115); Potassium 4.4 mmol/L (3.3-5.1); Sodium 134 mmol/L (135-145)
[2024-05-18 07:51] LABS: Platelet Count 287 X10*3/uL (160-400); SLIDE REVIEW VERIFIED
[2024-05-18 09:02] LABS: Estimated Glomerular Filt Rate 15
== END 2024-05-18 07:00 | disposition home or self-care (01) ==
LOC: HO.MMNH1L 06:59
PROVIDERS: Visit Provider Student in an Organized Health Care Education/Training Program
DX: E11.9 Type 2 diabetes mellitus without complications (principal); I10 Essential (primary) hypertension
CPT/HCPCS: 36415; 80048; 85025

== ENCOUNTER 2024-05-25 06:33 | Outpatient (REF) | payer MEDICARE, SELFPAY | END 2024-05-25 06:34 | disposition home or self-care (01) | LOC: HO.MMNH1L 06:33 | PROVIDERS: Visit Provider Student in an Organized Health Care Education/Training Program | DX: Z13.89 Encounter for screening for other disorder (principal) ==

== ENCOUNTER 2024-06-01 05:41 | Outpatient (REF) | payer MEDICARE, SELFPAY ==
[2024-06-01 05:40] LABS: MANUAL DIFF FLAG NO
[2024-06-01 06:25] LABS: Basophils Absolute Auto 0.1 X10*3/uL (0.0-0.2); Basophils Percent Auto 0.7 % (0-2); Eosinophils Absolute Auto 0.5 X10*3/uL (0.0-0.4); Eosinophils Percent Auto 4.1 % (0-4); Hematocrit 33.2 % (42.0-52.0); Hemoglobin 10.4 g/dl (14.0-18.0); Imm Gran Pct Auto 1.7 % (0.0-0.4); Lymphocytes Absolute Auto 1.5 X10*3/uL (1.2-4.9); Lymphocytes Percent Auto 12.3 % (20-40); Mean Corpuscular HGB Conc 31.3 g/dl (31.0-36.0); Mean Corpuscular Hemoglobin 29.7 pg (27.0-33.0); Mean Corpuscular Volume 94.9 fL (80.0-98.0); Mean Platelet Volume 9.4 fL (9.4-12.4); Monocytes Absolute Auto 0.7 X10*3/uL (0.1-1.2); Monocytes Percent Auto 6.1 % (2-11); Neutrophils Absolute Auto 9.1 x10*3/uL (2.0-8.3); Neutrophils Percent Auto 75.1 % (45-73); Platelet Count 242 X10*3/uL (160-400); Red Cell Distribution Width 17.7 % (11.0-16.0); White Blood Count 12.1 X10*3/uL (4.8-10.8)
[2024-06-01 06:39] LABS: Anion Gap 12 (12-20); Blood Urea Nitrogen 44 mg/dL (9-16); Carbon Dioxide 21 mmol/L (22-29); Chloride 107 mmol/L (96-108); Estimated Glomerular Filt Rate 16; Glucose Random 241 mg/dL (60-115); Potassium 5.7 mmol/L (3.3-5.1); Sodium 134 mmol/L (135-145)
== END 2024-06-01 05:42 | disposition home or self-care (01) ==
LOC: HO.MMNH1L 05:41
PROVIDERS: Visit Provider Student in an Organized Health Care Education/Training Program
DX: E11.9 Type 2 diabetes mellitus without complications (principal); I10 Essential (primary) hypertension
CPT/HCPCS: 36415; 80048; 85025

== ENCOUNTER 2024-06-08 05:43 | Outpatient (REF) | payer MEDICARE, SELFPAY ==
[2024-06-08 05:37] LABS: MANUAL DIFF FLAG NO
[2024-06-08 06:25] LABS: Basophils Absolute Auto 0.1 X10*3/uL (0.0-0.2); Basophils Percent Auto 0.6 % (0-2); Eosinophils Absolute Auto 0.4 X10*3/uL (0.0-0.4); Eosinophils Percent Auto 3.8 % (0-4); Hematocrit 31.1 % (42.0-52.0); Hemoglobin 9.7 g/dl (14.0-18.0); Imm Gran Abs Auto 0.13 X10*3/uL (0.00-0.03); Imm Gran Pct Auto 1.2 % (0.0-0.4); Lymphocytes Absolute Auto 1.9 X10*3/uL (1.2-4.9); Lymphocytes Percent Auto 17.5 % (20-40); Mean Corpuscular HGB Conc 31.2 g/dl (31.0-36.0); Mean Corpuscular Hemoglobin 29.8 pg (27.0-33.0); Mean Corpuscular Volume 95.4 fL (80.0-98.0); Mean Platelet Volume 9.3 fL (9.4-12.4); Monocytes Percent Auto 9.3 % (2-11); Neutrophils Absolute Auto 7.4 x10*3/uL (2.0-8.3); Neutrophils Percent Auto 67.6 % (45-73); Platelet Count 246 X10*3/uL (160-400); Red Blood Count 3.26 X10*6/uL (4.60-5.80); Red Cell Distribution Width 17.3 % (11.0-16.0); White Blood Count 10.9 X10*3/uL (4.8-10.8)
[2024-06-08 06:49] LABS: Anion Gap 15 (12-20); Blood Urea Nitrogen 46 mg/dL (9-16); Calcium 9.7 mg/dL (8.4-10.2); Carbon Dioxide 22 mmol/L (22-29); Chloride 101 mmol/L (96-108); Glucose Random 283 mg/dL (60-115); Potassium 4.9 mmol/L (3.3-5.1); Sodium 133 mmol/L (135-145)
[2024-06-08 07:01] LABS: Estimated Glomerular Filt Rate 11
== END 2024-06-08 05:44 | disposition home or self-care (01) ==
LOC: HO.MMNH3L 05:43
PROVIDERS: Visit Provider Student in an Organized Health Care Education/Training Program
DX: E11.9 Type 2 diabetes mellitus without complications (principal); I10 Essential (primary) hypertension
CPT/HCPCS: 36415; 80048; 85025

== ENCOUNTER 2024-06-15 05:46 | Outpatient (REF) | payer MEDICARE, SELFPAY ==
[2024-06-15 05:41] LABS: MANUAL DIFF FLAG NO
--- OUTSIDE RECORDS SUMMARY | 2024-06-15 05:54 | XMS_ITS | Encounter Summary ---
Author Organization [facility] Address [address] [facility] [address] [place] [address] Phone Care Team Providers Care Flask Pusher Name Role Phone Maximiliano Schmidt MD Primary Care Provider +1 -[phone] Encounter Details Date Type Department Care Team ([facility] st Contact Info) Description 09/09/2020 Orders Only [facility] [address] [facility] [address] [facility] [address] [place] [phone] Jr Martinez MD [address] [facility] [address] [place] [phone] Hyperkalemia Social History Tobacco Use Types Packs/Day [...] (8-23) MG/DL [facility] Creatinine 1.5(H) (0.7-1.2) MG/DL [facility] Sodium 141 (133-145) MMOL/L [facility] Potassium 4.5 (3.6-5.2) MMOL/L [facility] Chloride 104 (98-107) MMOL/L [facility] Bicarbonate (CO2) 21(L) (22-29) MMOL/L [facility] Anion Gap 16 (4-17) [facility] Calcium 9.3 (8.6-10.5) MG/DL [facility] Est GFR Non 47 ML/MIN/1.7 3 M2 [facility] Comment: Creatinine based estimated glomerular filtration rate (eGFR) is calculated using the Chronic Kidney Disease Epidemiology Collaboration (CKD-EPI). The CKD-EPI creatinine equation has not been validated in children (<18 years), women or in some racial or ethnic subgroups other than Caucasians and Americans. EST GFR 55 ML/MIN/1.7 3 M2 [facility] Comment: Creatinine based estimated glomerular filtration rate (eGFR) is calculated using the Chronic Kidney Disease Epidemiology Collaboration (CKD-EPI). The CKD-EPI creatinine equation has not been validated in children (<18 years), women or in some racial or ethnic subgroups other than Caucasians and Americans. Testing performed or reported by [facility], a Service of [facility], [address] [place] [address] Renetta Grider MD, Equine Pharmacology Technician [facility]# [id number] Blood (Blood, Venous) 11/04/2020 8:40 AM EDT 11/04/2020 8:42 AM EDT Jr Martinez MD LAB BLOOD ORDERABLES Final Resul t [facility] documented in this encounter Visit Diagnoses Diagnosis Hyperkalemia documented in this encounter Care Teams Flask Pusher Relationship Specialty Start Date End Date Maximiliano Schmidt MD [address] [place] [phone] PCP - General Internal Medicine 07/29/23 documented as of this encounter
--- OUTSIDE RECORDS SUMMARY | 2024-06-15 05:54 | XMS_ITS | Encounter Summary ---
Author Organization [facility] Address [address] [place] [address] Phone Care Team Providers Care Speaking Unit Assembler Name Role Phone Maximiliano Schmidt MD Primary Care Provider [phone] [phone] Encounter Details Date Type Department Care Team (Late st Contact Info) Description 08/24/2020 Orders Only [facility] [address] [place] [address] Provider, MD Laura [address] [place] [phone] Social History Tobacco Use Types Packs/Day [...] on filedocumented in this encounter Care Teams Speaking Unit Assembler Relationship Specialty Start Date End Date Maximiliano Schmidt MD [address] [place] [phone] PCP - General Internal Medicine 07/29/23 documented as of this encounter
--- OUTSIDE RECORDS SUMMARY | 2024-06-15 05:54 | XMS_ITS | Encounter Summary ---
Author Organization [facility] Address [address] [address] Phone Care Team Providers Care Furnace Tender Name Role Phone Maximiliano Schmidt MD Primary Care Provider [phone] [phone] Encounter Details Date Type Department Care Team (Late st Contact Info) Description 06/09/2024 Treatment [facility] [address] [phone] Marco A Sanchez MD [address] [phone] End stage renal disease; Dependence on renal [...] Note - Marco A Sanchez MD - 06/09/2024 12:00 AM EDT Patient: Hardeep Howard : 1950 Note Type: Dialysis Rounds-Comp Service Date: 06/09/2024 This patient was personally seen for a complete visit as part of routine monthly dialysis care for end stage renal disease. Attending Print Line Supervisor: MARCO A SANCHEZ MD Dialysis Location: [facility] Schedule: Shift: 1 OVERVIEW Patient is stable. BP AND FLUID ASSESSMENT Acceptable blood pressure. Fluid status acceptable. ADEQUACY ASSESSMENT Kt/V, Natural Log 1.50 (05/14/24) 1.68 (02/13/24) 1.36 (02/01/24) UREA REDUCTION RATIO (%) 73 (05/14/24) 77 (02/13/24) 72 (02/01/24) BUN 37 (05/14/24) 35 (02/13/24) 50 (02/01/24) BUN Post Dialysis 10 (05/14/24) 8 (02/13/24) 14 (02/01/24) Creatinine 3.70 (05/14/24) 4.89 (02/13/24) 4.50 (02/01/24) Bicarbonate (CO2) 24 (05/14/24) 23 (02/13/24) 19 (02/01/24) Sodium 134 (05/14/24) 132 (02/13/24) 130 (02/01/24) Target met. Prescription compliance acceptable. ACCESS ASSESSMENT Vascular access examined. ANEMIA ASSESSMENT Hgb 10.6 (05/28/24) 10.7 (05/14/24) 9.0 (02/13/24) Iron Saturation (TSat) 24 (05/14/24) 9 (02/13/24) 13 (02/01/24) Ferritin 2,149 (05/14/24) 969 (02/13/24) 836 (02/01/24) Iron 35 (05/14/24) 18 (02/13/24) 34 (02/01/24) TIBC 144 (05/14/24) 196 (02/13/24) 272 (02/01/24) MCV 94.4 (05/14/24) 90.5 (02/13/24) 92.1 (02/01/24) Platelets 339 (05/14/24) 282 (02/13/24) 343 (02/01/24) Anemia targets met. Hemoglobin at target. BMM ASSESSMENT Calcium, Adjusted Total 10.1 05/14/24 9.8 02/13/24 9.8 02/01/24 Calcium 9.5 05/14/24 9.7 02/13/24 9.8 02/01/24 Phosphorus, Serum 3.8 05/28/24 3.0 05/14/24 3.1 02/13/24 Phosphorus 3.6 09/17/23 3.6 09/17/23 3.8 06/12/23 Ca*PO4 28.5 05/14/24 30.1 02/13/24 52.9 02/01/24 PTH, Intact 140 02/01/24 PTH 101 09/17/23 Vitamin D, 25-Hydroxy 20 02/01/24 Vitamin D, 25-OH, Total 27.6 09/17/23 Magnesium 1.8 05/14/24 2.0 02/13/24 2.6 02/01/24 Alkaline Phosphatase 96 05/14/24 108 02/13/24 111 02/01/24 Aluminum 9 02/01/24 PTH within target. Phosphorus controlled. Calcium controlled. Bone and mineral metabolism parameters reviewed. NUTRITION ASSESSMENT Albumin 3.3 05/14/24 3.9 02/13/24 4.6 02/01/24 Potassium 4.5 05/14/24 3.6 02/13/24 4.2 02/01/24 Hemoglobin A1C 5.2 02/01/24 Albumin not at goal. PHYSICAL EXAM Exam performed. Vital Signs Reviewed. Lungs - Clear. CV - Blood pressure noted. EXT - No ulcers. ADDITIONAL LABS White Blood Cells 9.8 (05/14/24) 13.1 (02/13/24) 12.2 (02/01/24) Cholesterol 83 (02/01/24) HDL 33 (02/01/24) LDL-Calc 6 (02/01/24) Triglycerides 219 (02/01/24) Hep B Surface Antibody <4 (02/01/24) Uric Acid 7.6 (02/01/24) 8.0 (09/17/23) Signed by: MARCO A SANCHEZ MD on 06/09/2024 at 08:13:58 AM documented in this encounter Plan of Treatment Not on file documented as of this encounter Visit Diagnoses Diagnosis End stage renal disease Dependence on renal dialysis documented in this encounter Care Teams Furnace Tender Relationship Specialty Start Date End Date Maximiliano Schmidt MD [address] [place] [phone] PCP - General Internal Medicine 07/29/23 documented as of this encounter
--- OUTSIDE RECORDS SUMMARY | 2024-06-15 05:55 | XMS_ITS | Data Portability ---
Author Organization [place] [facility] Address [address] [place] [address] Care Team Providers Care Supervisor Drawing Name Role Phone HYUN FALCON Primary Care Provider [phone] Assessment Encounter Date Assessment Date Assessment LastModified [...] , dipstick 2018 krissy Spr - Home, [address] [place] [address], [address], 9 09:54:29 culture, urine - Collected by [facility] 2018 MARQUISE [facility] (Centralized Electronic Ordering - All Locations), Patient Can Go To The Location Of Their Choice, [id number] 9 13:06:07 Referral None recorded. Procedures None recorded. Surgeries None recorded. Imaging None recorded. Medication Orders cephalexin 500 mg capsule 2018 019 nyuzych [id number], [address] [place], [address], 9 09:54:29 Keflex 500 mg capsule 2018 019 INTERFACE [id number], [address] [place], [address], 9 09:54:31 Patient TargetsNo targets recorded. Patient Instructions Encounter Date Encounter Id Patient Instructions Last Modified By Organization Details Last Modified Time 12/20/2018 [id number] URINARY TRACT INFECTION INSTRUCTIONS YOU HAVE A [...] condition between 8am-10pm, please call [facility] at [phone] to help navigate your care. krissy Not available 12/20/2018 09:54:27 Reason for Referral None Reported. Results Created Date Observation Date Name Description Value Unit Range Abnormal Flag Note LastModifiedBy Organization Detail LastModifiedTime 12/21/1912/20/2018 urina lysis , dipst ick Appearance cloudy Not Available [facility] [address] [place], [address], 12/20/2018 09:43:21 12/21/1912/20/2018 urina lysis , dipst ick Color yellow Not Available Spr - [facility] [address] [place], [address], 12/20/2018 09:43:21 12/21/1912/20/2018 urina lysis , dipst ick Glucose negati ve Not Available Spr - [facility] [address] [place], [address], 12/20/2018 09:43:21 12/21/19 19 12/20/2018 urina lysis , dipst ick Bilirubin negati ve Not Available Spr - [facility] [address] [place], [address], 12/20/2018 09:43:21 12/21/19 19 12/20/2018 urina lysis , dipst ick Ketones NEG Not Available Spr - [facility] [address] [place], [address], 12/20/2018 09:43:21 12/21/19 19 12/20/2018 urina lysis , dipst ick Sp. Skipwith 1.030 Not Available Spr - Home [address] [place], [address], 12/20/2018 09:43:21 12/21/19 19 12/20/2018 urina lysis , dipst ick Blood +++ Not Available Spr - Home [address] [place], [address], 12/20/2018 09:43:21 12/21/1912/20/2018 urina lysis , dipst ick pH 5.0 Not Available Spr - Home [address] [place], [address], 12/20/2018 09:43:21 12/21/1912/20/2018 urina lysis , dipst ick Protein positi ve Not Available Spr - Home [address] [place], [address], 12/20/2018 09:43:21 12/21/1912/20/2018 urina lysis , dipst ick Urobilirubin negati ve Not Available Spr - Home [address] [place], [address], 12/20/2018 09:43:21 12/21/1912/20/2018 urina lysis , dipst ick Nitrites +++ Not Available Spr - [facility] [address] [place], [address], 12/20/2018 09:43:21 12/21/1912/20/2018 urina lysis , dipst ick Leukocytes +++ Not Available Spr - H [facility]me [address] [place], [address], 12/20/2018 09:43:21 12/21/19 19 12/20/2018 cultu re, urine specimen description URINE Not Available [facility] ([facility] Ordering - All Locations) Patient Can Go To The Location Of Their Choice, [id number] 12/22/2018 13:06:06 12/21/1912/20/2018 cultu re, urine special requests NONE Not Available [facility] (Centralized Electronic Ordering - All Locations) Patient Can Go To The Location Of Their Choice, [address] 12/22/2018 13:06:06 12/21/1912/22/2018 cultu re, urine culture >100,0 00 COL/ML KLEBSI BAILEY PNEUMO NIAE abnormal Not Available [facility] (Centralized Electronic Ordering - All Locations) Patient Can Go To The Location Of Their Choice, [id number] 12/22/2018 13:06:06 12/21/1912/22/2018 cultu re, urine report status FINAL 2018 Not Available [facility] (Centralized Electronic Ordering - All Locations) Patient Can Go To The Location Of Their Choice, [id number] 12/22/2018 13:06:06 12/21/1912/22/2018 cultu re, urine organism [...] Go To The Location Of Their Choice, [id number] 12/22/2018 13:06:06 12/21/1912/22/2018 cultu re, urine piperacillin /tazobactam PIPERA CILLIN /TAZOB AC SUSCEP TIBLE susceptib le Not Available [facility] (Centralized Electronic Ordering - All Locations) Patient Can Go To The Location Of Their Choice, [address] 12/22/2018 13:06:06 12/21/1912/22/2018 cultu re, urine trimeth/sulf amethox TRIMET H/SULF AMETHO X SUSCEP TIBLE susceptib le Not Available [facility] (Centralized Electronic Ordering - All Locations) Patient Can Go To The Location Of Their Choice, [id number] 12/22/2018 13:06:06 12/21/1912/22/2018 cultu re, urine tetracycline TETRAC YCLINE SUSCEP TIBLE susceptib le Not Available [facility] (Centralized Electronic Ordering - All Locations) Patient Can Go To The Location Of Their Choice, [id number] 12/22/2018 13:06:06 Result Notes None recorded. Medical [...] [degF] 160 mm[Hg] 80 mm[Hg] Not Available [facility] 9 09:32:19 Social History Question Answer Notes LastModified by Organizat ion Details LastModified Time Tobacco Smoking Status Never Smoker [facility]IDA [facility] [address] [place], [address], [place] [facility] 12/20/2018 09:34:50 Do You [...] available 2018 09:34:19 Medical History Condition Response Coronary Artery Disease N Depression N COPD N Diabetes Y Cancer N Stroke N Asthma N High Cholesterol Y Pulmonary Embolism N Hypertension Y Kidney Disease Y Past Encounters Encounter ID Performer Location Encounter Start Date Encounter Closed Date Diagnosis/Indication Diagnosis SNOMED-CT Code Diagnosis ICD10 Code Diagnosis Note [id number] [facility] [address] [place] [address] 12/20/2018 09:28:30 12/22/2018 11:41:07 Urinary tract infectious disease 61642521 N39.0 Acute condition Increased frequency of urination 769698643 R35.0 Dysuria 44788109 R30.9 Diabetes mellitus 413777 09 E11.9 chronic condition Health Concerns Section Related Observation LastModified by Organization Detai ls LastModified Time None Recorded Concern Status LastModified by Organization Details LastModified Time None Recorded Advance Directives Directive N: Payers Encounter Date Sequence Insurance Name Policy Number Policy Vasquez Covered Member ID Vasquez Member ID Guarantor Name 12/20/2018 1 [place]: [employer] Hardeep Howard [id number] Hardeep Beasleycarolyn 12/20/2018 2 [facility] OPTIONS (MEDICARE SUPPLEMENT) Hardeep Howard [id number] Hardeep Howard Notes Date Note Type Note [...] HLD, CKD [facility] [address], [place], [address], [place] [facility] 12/20/2018 10:34:52
--- OUTSIDE RECORDS SUMMARY | 2024-06-15 05:55 | XMS_ITS | Clinical Summary ---
Author Organization [facility] Address [address] [place] [phone] Phone Care Team Providers Care Creamery Worker Name Role Phone Maximiliano Schmidt MD Primary Care Provider [phone] Allergies Active Allergy Reactions Criticality Noted Date [...] Dyslipidemia 02/04/2023 02/04/2023 Severe obesity 02/04/2023 02/04/2023 prison current use of oral hypoglycemic drug 02/04/2023 02/04/2023 prison current use of insulin 07/23/2022 02/04/2023 Deafness [...] Encounters Date Type Department Care Team Description 06/09/2024 Treatment [facility] [address] [phone] Obed Aleman MD End stage renal disease; Dependence on renal dialysis 06/04/2024 Treatment [facility] [address] [phone] Obed Aleman MD End stage renal disease; Dependence on renal dialysis 05/28/2024 Treatment [facility] [address] [phone] Obed Aleman MD End stage renal disease; Dependence on renal dialysis 05/19/2024 Treatment [facility] [address] [phone] Obed Aleman MD End stage renal disease; Dependence on renal dialysis 05/14/2024 Orders Only [facility] [address] [phone] Obed Aleman MD 05/12/2024 Treatment [facility] [address] [phone] Obed Aleman MD End stage renal disease; Dependence on renal dialysis 05/07/2024 Treatment [facility] [address] [phone] Obed Aleman MD 05/05/2024 Treatment [facility] [address] [phone] Obed Aleman MD 04/25/2024 Treatment [facility] [address] [phone] Obed Aleman MD 04/14/2024 Treatment [facility] [address] [phone] Obed Aleman MD 04/07/2024 Treatment [facility] [address] [phone] Obed Aleman MD 04/02/2024 Treatment [facility] [address] [facility] [address] [place] [address] Obed Aleman MD 03/26/2024 Treatment [facility] [address] [phone] Obed Aleman MD from Last 3 Months [...] - PPSV23 or PCV20) 05/29/2022 04/03/2022, 12/11/2016 Diabetes: Hemoglobin A1C 05/03/2024 02/01/2024, 11/2018 Influenza Vaccine (Season Ended) 2024 12/15/2021, 12/23/2020, 01/01/2019, Additional history exists Procedures Procedure Name Priority Date/Time Associated Diagnosis Comments [facility] () Routine 05/28/2024 3:00 AM EDT PHOSPHATE ( PHOSPHORUS) Routine 05/28/2024 3:00 AM EDT HEMOGLOBIN Routine 05/28/2024 3:00 AM EDT FERRITIN Routine 05/14/2024 3:00 AM EST PROTEIN, TOTAL, SERUM Routine 05/14/2024 3:00 AM EST TRANSFERRIN SATURATION Routine 3:00 AM EST MAGNESIUM Routine 05/14/2024 3:00 AM EST ELECTROLYTE PANEL Routine 05/14/2024 3:0 0 AM EST LACTATE DEHYDROGENASE Routine 05/14/2024 3:00 AM EST GLUCOSE, RANDOM Routine 05/14/2024 3:[address] [facility] (HC) Routine 05/14/2024 3:00 AM EST CREATININE, SERUM Routine 05/14/2024 3:0 0 AM EST BILIRUBIN, TOTAL Routine 05/14/2024 3:00 AM EST AST Routine 05/14/2024 3:00 AM EST ALT Routine 05/14/2024 3:00 AM EST ALKALINE PHOSPHATASE Routine 05/14/2024 3:00 AM EST CALCIUM PHOSPHORUS PRODUCT, ADJUSTED (HC) Routine 05/14/2024 3:00 AM EST CBC AND DIFFERENTIAL Routine 05/14/2024 3:00 AM EST KT/V NATURAL LOG, URR (HC) Routine 05/14/2024 3:00 AM EST HEMOGLOBIN A1C Routine 02/01/2024 3:00 AM EST from Last 3 Months or Most Recently Relevant to Health Maintenance Results * [facility] (05/28/2024 3:00 AM EDT) Only the most recent of2 resultswithin the time period is included. Lipemia Normal Normal [facility] Icterus Normal Normal [facility] Hemolysis Normal Normal [facility] 05/28/2024 3:00 AM EDT 05/29/2024 12:39 PM EDT us Obed Aleman MD LAB HISTORICA [id number] RESULTS Final Result [facility] [address] [place] [address] * (ABNORMAL) Hemoglobin (05/28/2024 3:00 AM EDT) Hgb 10.6(L) 13.7 - 17.5 g/dL [facility] Hemoglobin x 3 31.8(L) 41.1 - 52.5 g/dL [facility] 05/28/2024 3:00 AM EDT 05/29/2024 12:42 PM EDT us Obed Aleman MD LAB BLOOD ORDERABLES Final Result Performing Organization Address [facility] de Phone Number [facility] [address] [place] [address] * Phosphorus (05/28/2024 3:00 AM EDT) Phosphorus, Serum 3.8 2.5 - 5.0 mg/dL [facility] 05/28/2024 3:00 AM EDT 05/29/2024 12:39 PM EDT us Obed Aleman MD LAB BLOOD ORDERABLES Final Result Performing Organization Address [facility] de Phone Number [facility] [address] [place] [address] * (ABNORMAL) Kt/V Natural Log, URR (05/14/2024 3:00 AM EST) Treatment Time 245 min [facility] Pre-Weight, lb 85.0 kg [facility] Post-Weight, lb 83.2 kg [facility] Ultrafiltration Rate 5 <=13 mL/kg/hr [facility] Comment: Recommend achieving Ultrafiltration Rate (UFR) <=10 mL/kg/hr References: Antione TOPETE et al. Kidney Int. 2010; 79(2):250-257 BUN 37(H) 7 - 25 mg/dL [facility] BUN Post Dialysis 10 7 - 25 mg/dL [facility] UREA REDUCTION RATIO (%) 73 >=65 % [facility] Kt/V Natural Log 1.50 >=1.2 [facility] 05/14/2024 3:00 AM EST 05/15/2024 1:46 PM EST us Obed Aleman MD LAB HISTORICA [id number] RESULTS Final Result Performing Organization Address [facility]/ZIP Co de Phone Number [facility]PS [facility] [address] [place] [address] * (ABNORMAL) Calcium Phosphorus Product, Adjusted (05/14/2024 3:00 AM EST) Pathologist [facility] Albumin 3.3(L) 3.6 - 5.4 g/dL [facility] Calcium 9.5 8.6 - 10.3 mg/dL [facility] Phosphorus, Serum 3.0 2.5 - 5.0 mg/dL [facility] Ca*PO4 28.5 <55.0 mg2/dL2 [facility] Calcium, Adjusted Total 10.1 8.6 - 10.3 mg/dL [facility] CA*PO4 CORRCTD 30.3 <55.0 mg2/dL2 [facility] 05/14/2024 3:00 AM EST 05/15/2024 2:06 PM EST us Obed Aleman MD LAB HISTORICA [id number] RESULTS Final Result Performing Organization Address [facility] Co de Phone Number [facility] [address] [place] [address] * (ABNORMAL) TSAT (05/14/2024 3:00 AM EST) [facility] Iron 35(L) 65 - 175 ug/dL [facility] Transferrin 103(L) 215 - 365 mg/dL [facility] TIBC 144(L) 211 - 406 ug/dL [facility] Iron Saturation (TSat) 24 22 - 52 % [facility] 05/14/2024 3:00 AM EST 05/15/2024 2:06 PM EST us Obed Aleman MD LAB BLOOD ORDERABLES Final Result Performing Organization Address [facility] Co de Phone Number [facility] [address] [place] [address] * (ABNORMAL) CBC and Differential (05/14/2024 3:00 AM EST) [facility] DIFFERENTIAL MANUAL, 2 Not Indicated [facility] White Blood Cells 9.8(H) 4.2 - 9.1 K/uL [facility] RBC 3.76(L) 4.63 - 6.08 M/uL [facility] Hgb 10.7(L) 13.7 - 17.5 g/dL [facility] Hemoglobin x 3 32.1(L) 41.1 - 52.5 g/dL [facility] Hematocrit 35.5(L) 40.1 - 51.0 % [facility] MCV 94.4(H) 79.0 - 92.2 fL [facility] MCH 28.5 25.7 - 32.2 pg [facility] MCHC 30.1(L) 32.3 - 36.5 g/dL [facility] Platelets 339(H) 163 - 337 K/uL [facility] RDW 18.4(H) 11.6 - 14.4 % [facility] Neutrophils Relative 73.7(H) 34.0 - 67.9 % [facility] Lymphocytes Relative 13.3(L) 21.8 - 53.1 % [facility] Monocytes 7.8 5.3 - 12.2 % [facility] Eosinophils Relative 3.7 0.8 - 7.0 % [facility] Basophils Relative 0.6 0.2 - 1.2 % [facility] Immature Granulocytes 0.9 0.0 - 1.0 % [facility] 05/14/2024 3:00 AM EST 05/15/2024 1:58 PM EST us Obed Aleman MD LAB BLOOD ORDERABLES Final Result Performing Organization Address City/[facility] Co de Phone Number [facility] [address] [place] [address] * (ABNORMAL) ALT (05/14/2024 3:00 AM EST) ALT (SGPT) 8(L) 10 - 49 U/L [facility] 05/14/2024 3:00 AM EST 05/15/2024 2:06 PM EST Obed Aleman MD LAB BLOOD ORDERABLES Final Result Performing Organization Address City/[facility] Co de Phone Number [facility] [address] [place] [address] * AST (05/14/2024 3:00 AM EST) AST (SGOT) 14 <34 U/L [facility] 05/14/2024 3:00 AM EST 05/15/2024 2:06 PM EST us Obed Aleman MD LAB BLOOD ORDERABLES Final Result Performing Organization Address [facility] Co de Phone Number [facility] [address] [place] [address] * Protein, total (05/14/2024 3:00 AM EST) Total Protein 6.6 6.4 - 8.9 g/dL [facility] 05/14/2024 3:00 AM EST 05/15/2024 2:06 PM EST us Obed Aleman MD LAB BLOOD ORDERABLES Final Result Performing Organization Address [facility] Co de Phone Number [facility] [address] [place] [address] * Alkaline phosphatase (05/14/2024 3:00 AM EST) Alkaline Phosphatase 96 46 - 116 U/L [facility] 05/14/2024 3:00 AM EST 05/15/2024 2:06 PM EST us Obed Aleman MD LAB BLOOD ORDERABLES Final Result Performing Organization Address [facility] Co de Phone Number [facility] [address] [place] [address] * (ABNORMAL) Magnesium (05/14/2024 3:00 AM EST) Magnesium 1.8(L) 1.9 - 2.7 mg/dL [facility] 05/14/2024 3:00 AM EST 05/15/2024 2:06 PM EST us Obed Aleman MD LAB BLOOD ORDERABLES Final Result Performing Organization Address City/[facility]/ZIP Co de Phone Number [facility] [address] [place] [address] * Lactate dehydrogenase (05/14/2024 3:00 AM EST) LDH 174 120 - 246 U/L [facility] 05/14/2024 3:00 AM EST 05/15/2024 2:06 PM EST us Obed Aleman MD LAB BLOOD ORDERABLES Final Result Performing Organization Address [facility] Co de Phone Number [facility] [address] [place] [address] * (ABNORMAL) Glucose, random (05/14/2024 3:00 AM EST) Glucose 172(H) 74 - 109 mg/dL [facility] 05/14/2024 3:00 AM EST 05/15/2024 2:06 PM EST us Obed Aleman MD LAB BLOOD ORDERABLES Final Result Performing Organization Address [facility] de Phone Number [facility] [address] [place] [address] * (ABNORMAL) Ferritin (05/14/2024 3:00 AM EST) Ferritin 2,149(H) 22 - 322 ng/mL [facility] 05/14/2024 3:00 AM EST 05/15/2024 2:06 PM EST Obed Aleman MD LAB BLOOD ORDERABLES Final Result Performing Organization Address [facility] Co de Phone Number [facility] [address] [place] [address] * (ABNORMAL) Creatinine, serum (05/14/2024 3:00 AM EST) Creatinine 3.70(H) 0.70 - 1.30 mg/dL [facility] 05/14/2024 3:00 AM EST 05/15/2024 2:06 PM EST us Obed Aleman MD LAB BLOOD ORDERABLES Final Result Performing Organization Address [facility] Co de Phone Number [facility] [address] [place] [address] * (ABNORMAL) Bilirubin, total (05/14/2024 3:00 AM EST) Total Bilirubin 0.2(L) 0.3 - 1.2 mg/dL [facility] 05/14/2024 3:00 AM EST 05/15/2024 2:06 PM EST us Obed Aleman MD LAB BLOOD ORDERABLES Final Result Performing Organization Address [facility] de Phone Number [facility] [address] [place] [address] * (ABNORMAL) Electrolyte panel (05/14/2024 3:00 AM EST) Sodium 134(L) 136 - 145 mEq/L [facility] Potassium 4.5 3.4 - 5.0 mEq/L [facility] Chloride 101 98 - 107 mEq/L [facility] Bicarbonate (CO2) 24 21 - 31 mEq/L [facility] Anion Gap 9 3 - 14 mEq/L [facility] 05/14/2024 3:00 AM EST 05/15/2024 2:06 PM EST us Obed Aleman MD LAB BLOOD ORDERABLES Final Result Performing Organization Address [facility] de Phone Number [facility] [address] [place] [address] * Hemoglobin A1c (02/01/2024 3:00 AM EST) [...] ORDERABLES Final Result [facility] [address] [place] [address] from Last 3 Months or Most Recently Relevant to Health Maintenance Insurance [facility] MEDICARE [facility] MEDICARE Care Teams Creamery Worker Relationship Specialty Start Date End Date Maximiliano Schmidt MD [address] [place] [phone] PCP - General Internal Medicine 07/29/23
[2024-06-15 06:44] LABS: Basophils Absolute Auto 0.1 X10*3/uL (0.0-0.2); Basophils Percent Auto 0.5 % (0-2); Eosinophils Absolute Auto 0.3 X10*3/uL (0.0-0.4); Eosinophils Percent Auto 2.8 % (0-4); Hemoglobin 9.9 g/dl (14.0-18.0); Imm Gran Abs Auto 0.18 X10*3/uL (0.00-0.03); Imm Gran Pct Auto 1.6 % (0.0-0.4); Lymphocytes Absolute Auto 1.6 X10*3/uL (1.2-4.9); Monocytes Absolute Auto 0.9 X10*3/uL (0.1-1.2); Monocytes Percent Auto 8.3 % (2-11); Neutrophils Absolute Auto 7.8 x10*3/uL (2.0-8.3); Neutrophils Percent Auto 71.8 % (45-73); Platelet Count 211 X10*3/uL (160-400); Red Blood Count 3.19 X10*6/uL (4.60-5.80); Red Cell Distribution Width 16.8 % (11.0-16.0); White Blood Count 10.9 X10*3/uL (4.8-10.8)
[2024-06-15 06:59] LABS: Anion Gap 15 (12-20); Blood Urea Nitrogen 44 mg/dL (9-16); Calcium 9.6 mg/dL (8.4-10.2); Carbon Dioxide 18 mmol/L (22-29); Chloride 101 mmol/L (96-108); Estimated Glomerular Filt Rate 12; Glucose Random 275 mg/dL (60-115); Potassium 4.3 mmol/L (3.3-5.1); Sodium 130 mmol/L (135-145)
== END 2024-06-15 05:47 | disposition home or self-care (01) ==
LOC: HO.MMNH1L 05:46
PROVIDERS: Visit Provider Student in an Organized Health Care Education/Training Program
DX: E11.9 Type 2 diabetes mellitus without complications (principal); I10 Essential (primary) hypertension
CPT/HCPCS: 36415; 80048; 85025

== ENCOUNTER 2024-06-17 05:55 | Outpatient (REF) | payer MEDICARE, SELFPAY ==
[2024-06-17 05:58] LABS: MANUAL DIFF FLAG NO
--- OUTSIDE RECORDS SUMMARY | 2024-06-17 05:58 | XMS_ITS | Encounter Summary ---
Author Organization [facility] Address [address] [facility] [address] [place] [address] Phone Care Team Providers Care Senior Java Web Application Developer Name Role Phone Maximiliano Schmidt MD Primary Care Provider [phone] Encounter Details Date Type Department Care Team ([facility] st Contact Info) Description 09/09/2020 Orders Only [facility] [address] [facility] [address] [place] [phone] Jr Martinez MD [address] [facility] [address] [place] [phone] Hyperkalemia Social History Tobacco Use Types Packs/Day [...] (8-23) MG/DL [facility] Creatinine 1.5(H) (0.7-1.2) MG/DL [facility] Sodium 141 (133-145) MMOL/L [facility] Potassium 4.5 (3.6-5.2) MMOL/L [facility] Chloride 104 (98-107) MMOL/L [facility] Bicarbonate (CO2) 21(L) (22-29) MMOL/L [facility] Anion Gap 16 (4-17) [facility] Calcium 9.3 (8.6-10.5) MG/DL [facility] [...] and Americans. Testing performed or reported by [facility], a Service of [facility], [address] [place] [address] Renetta Grider MD, Sanitary Landfill Operator [facility]# [id number] Blood (Blood, Venous) 11/04/2020 8:40 AM EDT 11/04/2020 8:42 AM EDT Jr Martinez MD LAB BLOOD ORDERABLES Final Resul t [facility] documented in this encounter Visit Diagnoses Diagnosis Hyperkalemia documented in this encounter Care Teams Senior Java Web Application Developer Relationship Specialty Start Date End Date Maximiliano Schmidt MD [address] [place] [phone] PCP - General Internal Medicine 07/29/23 documented as of this encounter
--- OUTSIDE RECORDS SUMMARY | 2024-06-17 05:58 | XMS_ITS | Clinical Summary ---
Author Organization [facility] Address [address] [place] [phone] Phone Care Team Providers Care Swimming Professor Name Role Phone Maximiliano Schmidt MD Primary Care Provider [phone] [phone] Allergies Active Allergy Reactions Criticality Noted Date [...] Dyslipidemia 02/04/2023 02/04/2023 Severe obesity 02/04/2023 02/04/2023 [facility] current use of oral hypoglycemic drug 02/04/2023 02/04/2023 [facility] current use of insulin 07/23/2022 02/04/2023 Deafness [...] Encounters Date Type Department Care Team Description 06/16/2024 Treatment [facility] [address] [phone] Obed Aleman MD End stage renal disease; Dependence on renal dialysis 06/09/2024 Treatment [facility] [address] [phone] Obed Aleman MD End stage renal disease; Dependence on renal dialysis 06/04/2024 Treatment [facility] [address] [address] Obed Aleman MD End stage renal disease; Dependence on renal dialysis 05/28/2024 Treatment [facility] [address] [address] Obed Aleman MD End stage renal disease; Dependence on renal dialysis 05/19/2024 Treatment [facility] [address] [address] Obed Aleman MD End stage renal disease; Dependence on renal dialysis 05/14/2024 Orders Only [facility] [address] [phone] Obed Aleman MD 05/12/2024 Treatment [facility] [address] [address] Obed Aleman MD End stage renal disease; Dependence on renal dialysis 05/07/2024 Treatment [facility] [address] [address] Obed Aleman MD 05/05/2024 Treatment [facility] [address] [phone] Obed Aleman MD 04/25/2024 Treatment [facility] [address] [phone] Obed Aleman MD 04/14/2024 Treatment [facility] [address] [phone] Obed Aleman MD 04/07/2024 Treatment [facility] [address] [place] [address] [address] [phone] Obed Aleman MD 04/02/2024 Treatment [facility] [address] [phone] Obed Aleman MD 03/26/2024 Treatment [facility] [address] [facility] [address] [place] [address] Obed Aleman MD from Last 3 Months [...] PCV20) 05/29/2022 04/03/2022, 12/11/2016 Diabetes: Hemoglobin A1C 09/10/2024 025, 02/01/2024, 11/17/2018 Influenza Vaccine (Season Ended) 2024 12/15/2021, 12/23/2020, 01/01/2019, Additional history exists Procedures Procedure Name Priority Date/Time Associated Diagnosis Comments HEMOGLOBIN A1C Routine 06/11/2024 3:00 AM EDT FERRITIN Routine 06/11/2024 3:00 AM EDT TRANSFERRIN SATURATION Routine 3:00 AM EDT PROTEIN, TOTAL, SERUM Routine 06/11/2024 3:00 AM EDT ELECTROLYTE PANEL Routine 06/11/2024 3:0 0 AM EDT MAGNESIUM Routine 06/11/2024 3:00 AM EDT LIH (HC) Routine 06/11/2024 3:00 AM EDT LIPID PANEL Routine 06/11/2024 3:00 AM EDT LACTATE DEHYDROGENASE Routine 06/11/2024 3:00 AM EDT GLUCOSE, RANDOM Routine 06/11/2024 3:00 AM EDT CREATININE, SERUM Routine 06/11/2024 3:0 0 AM EDT BILIRUBIN, TOTAL Routine 06/11/2024 3:00 AM EDT ALT Routine 06/11/2024 3:00 AM EDT ALKALINE PHOSPHATASE Routine 06/11/2024 3:00 AM EDT AST Routine 06/11/2024 3:00 AM EDT CALCIUM PHOSPHORUS PRODUCT, ADJUSTED (HC) Routine 06/11/2024 3:00 AM EDT PTH, INTACT Routine 06/11/2024 3:00 AM EDT CBC AND DIFFERENTIAL Routine 06/11/2024 3:00 AM EDT KT/V NATURAL LOG, URR (HC) Routine 06/11/2024 3:00 AM EDT LIH (HC) Routine 05/28/2024 3:00 AM EDT PHOSPHATE ( [...] GLUCOSE, RANDOM Routine 05/14/2024 3:00 AM EST LIH (HC) Routine 05/14/2024 3:00 AM EST CREATININE, [...] URR (HC) Routine 05/14/2024 3:00 AM EST from Last 3 Months Results * [facility] (06/11/2024 3:00 AM EDT) Only the most recent of3 resultswithin the time period is included. Lipemia Normal Normal [facility] Icterus Normal Normal [facility] Hemolysis Normal Normal [facility] 06/11/2024 3:00 AM EDT 06/13/2024 1:42 PM EDT us Obed Aleman MD LAB HISTORICA [id number] RESULTS Final Result [facility] [address] [place] [address] * (ABNORMAL) Kt/V Natural Log, URR (06/11/2024 3:00 AM EDT) Only the most recent of2 resultswithin the time period is included. Treatment Time 244 min [facility] Pre-Weight, lb 85.0 kg [facility] Post-Weight, lb 82.7 kg [facility] Ultrafiltration Rate 7 <=13 mL/kg/hr [facility] Comment: Recommend achieving Ultrafiltration Rate (UFR) <=10 mL/kg/hr References: Antione TOPETE et al. Kidney Int. 2010; 79(2):250-257 BUN 47(H) 7 - 25 mg/dL [facility] BUN Post Dialysis 11 7 - 25 mg/dL [facility] UREA REDUCTION RATIO (%) 77 >=65 % [facility] Kt/V Natural Log 1.69 >=1.2 [facility] 06/11/2024 3:00 AM EDT 06/13/2024 1:24 PM EDT us Obed Aleman MD LAB HISTORICA [id number] RESULTS Final Result [facility] [address] [place] [address] * Calcium Phosphorus Product, Adjusted (06/11/2024 3:00 AM EDT) Only the most recent of2 resultswithin the time period is included. Albumin 3.6 3.6 - 5.4 g/dL [facility] Calcium 9.4 8.6 - 10.3 mg/dL [facility] Phosphorus, Serum 4.8 2.5 - 5.0 mg/dL [facility] Ca*PO4 45.1 <55.0 mg2/dL2 [facility] Calcium, Adjusted Total 9.7 8.6 - 10.3 mg/dL [facility] CA*PO4 CORRCTD 46.6 <55.0 mg2/dL2 [facility] 06/11/2024 3:00 AM EDT 06/13/2024 1:42 PM EDT Obed Aleman MD LAB HISTORICA [id number] RESULTS Final Result Performing Organization Address [facility] Co de Phone Number [facility] [address] [place] [address] * (ABNORMAL) TSAT (06/11/2024 3:00 AM EDT) Only the most recent of2 resultswithin the time period is included. [facility] Iron 45(L) 65 - 175 ug/dL [facility] Transferrin 128(L) 215 - 365 mg/dL [facility] TIBC 179(L) 211 - 406 ug/dL [facility] Iron Saturation (TSat) 25 22 - 52 % [facility] 06/11/2024 3:00 AM EDT 06/13/2024 1:42 PM EDT Obed Aleman MD LAB BLOOD ORDERABLES Final Result Performing Organization Address [facility] de Phone Number [facility] [address] [place] [address] * (ABNORMAL) CBC and Differential (06/11/2024 3:00 AM EDT) Only the most recent of2 resultswithin the time period is included. [facility] DIFFERENTIAL MANUAL, 2 Not Indicated [facility] White Blood Cells 9.1 4.2 - 9.1 K/uL [facility] RBC 3.16(L) 4.63 - 6.08 M/uL [facility] Hgb 9.7(L) 13.7 - 17.5 g/dL [facility] Hemoglobin x 3 29.1(L) 41.1 - 52.5 g/dL [facility] Hematocrit 31.3(L) 40.1 - 51.0 % [facility] MCV 99.1(H) 79.0 - 92.2 fL [facility] MCH 30.7 25.7 - 32.2 pg [facility] MCHC 31.0(L) 32.3 - 36.5 g/dL [facility] Platelets 226 163 - 337 K/uL [facility] RDW 15.9(H) 11.6 - 14.4 % [facility] Neutrophils Relative 66.4 34.0 - 67.9 % [facility] Lymphocytes Relative 23.5 21.8 - 53.1 % [facility] Monocytes 3.3(L) 5.3 - 12.2 % [facility] Eosinophils Relative 2.2 0.8 - 7.0 % [facility] Basophils Relative 0.9 0.2 - 1.2 % [facility] Immature Granulocytes 3.7(H) 0.0 - 1.0 % [facility] 06/11/2024 3:00 AM EDT 06/13/2024 1:33 PM EDT us Obed Aleman MD LAB BLOOD ORDERABLES Final Result Performing Organization Address City/[facility]/ZIP Co de Phone Number [facility] [address] [place] [address] * ALT (06/11/2024 3:00 AM EDT) Only the most recent of2 resultswithin the time period is included. ALT (SGPT) 13 10 - 49 U/L [facility] 06/11/2024 3:00 AM EDT 06/13/2024 1:42 PM EDT us Obed Aleman MD LAB BLOOD ORDERABLES Final Result Performing Organization Address [facility] Co de Phone Number [facility] [address] [place] [address] * AST (06/11/2024 3:00 AM EDT) Only the most recent of2 resultswithin the time period is included. AST (SGOT) 12 <34 U/L [facility] 06/11/2024 3:00 AM EDT 06/13/2024 1:42 PM EDT us Obed Aleman MD LAB BLOOD ORDERABLES Final Result Performing Organization Address [facility] Co de Phone Number [facility] [address] [place] [address] * Protein, total (06/11/2024 3:00 AM EDT) Only the most recent of2 resultswithin the time period is included. Total Protein 7.0 6.4 - 8.9 g/dL [facility] 06/11/2024 3:00 AM EDT 06/13/2024 1:42 PM EDT us Obed Aleman MD LAB BLOOD ORDERABLES Final Result Performing Organization Address [facility] Co de Phone Number [facility] [address] [place] [address] * Alkaline phosphatase (06/11/2024 3:00 AM EDT) Only the most recent of2 resultswithin the time period is included. Pathologist [facility] Alkaline Phosphatase 106 46 - 116 U/L [facility] 06/11/2024 3:00 AM EDT 06/13/2024 1:42 PM EDT Obed Aleman MD LAB BLOOD ORDERABLES Final Result Performing Organization Address [facility] de Phone Number [facility] [address] [place] [address] * (ABNORMAL) PTH, Intact (06/11/2024 3:00 AM EDT) Pathologist [facility] PTH, Intact 23(L) 160 - 721 pg/mL [facility] Comment: Suggested (KDIGO) ESRD maintenance range is two to nine times the upper normal limit (80.1 pg/mL) for the laboratory. 06/11/2024 3:00 AM EDT 06/13/2024 1:42 PM EDT us Obed Aleman MD LAB BLOOD ORDERABLES Final Result Performing Organization Address [facility] de Phone Number [facility] [address] [place] [address] * (ABNORMAL) Magnesium (06/11/2024 3:00 AM EDT) Only the most recent of2 resultswithin the time period is included. Magnesium 1.8(L) 1.9 - 2.7 mg/dL [facility] 06/11/2024 3:00 AM EDT 06/13/2024 1:42 PM EDT us Obed Aleman MD LAB BLOOD ORDERABLES Final Result Performing Organization Address [facility] de Phone Number [facility] [address] [place] [address] * Lactate dehydrogenase (06/11/2024 3:00 AM EDT) Only the most recent of2 resultswithin the time period is included. LDH 189 120 - 246 U/L [facility] 06/11/2024 3:00 AM EDT 06/13/2024 1:42 PM EDT Obed Aleman MD LAB BLOOD ORDERABLES Final Result Performing Organization Address [facility] de Phone Number [facility] [address] [address] * (ABNORMAL) Hemoglobin A1c (06/11/2024 3:00 AM EDT) Pathologist [facility] Hemoglobin A1C 6.1(H) <5.7 % [facility] Comment: Methodology: Ion-exchange high-performance liquid chromatography (HPLC) HbA1c (NGSP %) ?Suggested Diagnosis >6.4% ? Diabetic 5.7-6.4% ?Pre-Diabetic <5.7% ? Non-Diabetic Diabetic Glucose Control Evaluation: Therapeutic action suggested at >8.0% ADA recommends a glycemic goal of <7.0% 06/11/2024 3:00 AM EDT 06/13/2024 1:33 PM EDT us Obed Aleman MD LAB BLOOD ORDERABLES Final Result Performing Organization Address [facility] de Phone Number [facility] [address] [place] [address] * (ABNORMAL) Glucose, random (06/11/2024 3:00 AM EDT) Only the most recent of2 resultswithin the time period is included. Glucose 234(H) 74 - 109 mg/dL [facility] 06/11/2024 3:00 AM EDT 06/13/2024 1:42 PM EDT Obed Aleman MD LAB BLOOD ORDERABLES Final Result Performing Organization Address [facility] Co de Phone Number [facility] [address] [place] [address] * (ABNORMAL) Ferritin (06/11/2024 3:00 AM EDT) Only the most recent of2 resultswithin the time period is included. Ferritin 1,936(H) 22 - 322 ng/mL [facility] 06/11/2024 3:00 AM EDT 06/13/2024 1:42 PM EDT Obed Aleman MD LAB BLOOD ORDERABLES Final Result Performing Organization Address [facility] Co de Phone Number [facility] [address] [place] [address] * (ABNORMAL) Creatinine, serum (06/11/2024 3:00 AM EDT) Only the most recent of2 resultswithin the time period is included. Creatinine 5.30(H) 0.70 - 1.30 mg/dL [facility] 06/11/2024 3:00 AM EDT 06/13/2024 1:42 PM EDT us Obed Aleman MD LAB BLOOD ORDERABLES Final Result Performing Organization Address [facility] Co de Phone Number [facility] [address] [place] [address] * (ABNORMAL) Bilirubin, total (06/11/2024 3:00 AM EDT) Only the most recent of2 resultswithin the time period is included. Total Bilirubin <0.2(L) 0.3 - 1.2 mg/dL [facility] 06/11/2024 3:00 AM EDT 06/13/2024 1:42 PM EDT Obed Aleman MD LAB BLOOD ORDERABLES Final Result [facility] [address] [place] [address] * (ABNORMAL) Lipid panel (06/11/2024 3:00 AM EDT) Cholesterol 109 <200 mg/dL [facility] Comment: Optimal: ?<200 Borderline: ? 200-239 Higher Risk: ?>239 Triglycerides 237(A) <150 mg/dL [facility] Comment: Optimal: ?<150 Borderline High: ??150-199 High: ? 200-499 Very High: ?>499 HDL 36(A) >59 mg/dL [facility] Comment: Desirable: ?>59 Higher Risk: ?<40 LDL-Calc 26 <100 mg/dL [facility] Comment: Optimal: ?<100 Above Optimal: ?100-129 Borderline High: ??130-159 High: ? 160-189 Very High: ?>189 VLDL Cholesterol Stalin 47(A) <30 mg/dL [facility] Comment: Optimal: ?<30 Borderline High: ??30-39 High: ? 40-99 Very High: ?>99 Chol/HDL Ratio 3.0 <3.3 [facility] Comment: Optimal: ?<3.3 Higher Risk: ?>6.2 06/11/2024 3:00 AM EDT 06/13/2024 1:42 PM EDT Obed Aleman MD LAB BLOOD ORDERABLES Final Result Performing Organization Address [facility] de Phone Number [facility] [address] [place] [address] * (ABNORMAL) Electrolyte panel (06/11/2024 3:00 AM EDT) Only the most recent of2 resultswithin the time period is included. Sodium 129(L) 136 - 145 mEq/L [facility] Potassium 4.7 3.4 - 5.0 mEq/L [facility] Chloride 97(L) 98 - 107 mEq/L [facility] Bicarbonate (CO2) 20(L) 21 - 31 mEq/L [facility] Anion Gap 12 3 - 14 mEq/L [facility] 06/11/2024 3:00 AM EDT 06/13/2024 1:42 PM EDT us Obed Aleman MD LAB BLOOD ORDERABLES Final Result Performing Organization Address [facility] de Phone Number [facility] [address] [place] [address] * (ABNORMAL) Hemoglobin (05/28/2024 3:00 AM EDT) Hgb 10.6(L) 13.7 - 17.5 g/dL [facility] Hemoglobin x 3 31.8(L) 41.1 - 52.5 g/dL [facility] 05/28/2024 3:00 AM EDT 05/29/2024 12:42 PM EDT Obed Aleman MD LAB BLOOD ORDERABLES Final Result Performing Organization Address [facility] de Phone Number [facility] [address] [place] [address] * Phosphorus (05/28/2024 3:00 AM EDT) Phosphorus, Serum 3.8 2.5 - 5.0 mg/dL [facility] 05/28/2024 3:00 AM EDT 05/29/2024 12:39 PM EDT Obed Aleman MD LAB BLOOD ORDERABLES Final Result [facility] [address] [place] [address] from Last 3 Months Insurance [facility] Care Teams Swimming Professor Relationship Specialty Start Date End Date Maximiliano Schmidt MD [address] [place] [phone] PCP - General Internal Medicine 07/29/23
--- OUTSIDE RECORDS SUMMARY | 2024-06-17 05:58 | XMS_ITS | Encounter Summary ---
Author Organization [facility] Address [address] [place] [address] Phone Care Team Providers Care Rate And Cost Analyst Name Role Phone Maximiliano Schmidt MD Primary Care Provider +[phone] Encounter Details Date Type Department Care Team (Late st Contact Info) Description 08/24/2020 Orders Only [facility] [address] [place] [address] Provider, MD Luara [address] [place] [id number] Social History Tobacco Use Types Packs/Day [...] on filedocumented in this encounter Care Teams Rate And Cost Analyst Relationship Specialty Start Date End Date Maximiliano Schmidt MD [address] [place] [phone] PCP - General Internal Medicine 07/29/23 documented as of this encounter
--- OUTSIDE RECORDS SUMMARY | 2024-06-17 05:58 | XMS_ITS | Data Portability ---
Author Organization [place] [facility] Address [address] [place] [address] Care Team Providers Care Sr Vice President Name Role Phone HYUN FALCON Primary Care [...] , dipstick 2018 krissy Spr - Home, [address] [place] [address], [address], 9 09:54:29 culture, urine - Collected by [facility] 2018 MARQUISE [facility] (Centralized Electronic Ordering - All Locations), Patient Can Go To The Location Of Their Choice, [id number] 9 13:06:07 Referral None recorded. Procedures None recorded. Surgeries None recorded. Imaging None recorded. Medication Orders cephalexin 500 mg capsule 2018 019 nyuzych [id number], [address] [place], [address], 9 09:54:29 Keflex 500 mg capsule 2018 019 INTERFACE [id number], [address] [place], [address], 9 09:54:31 Patient TargetsNo targets recorded. Patient Instructions Encounter Date Encounter Id Patient Instructions Last Modified By Organization Details Last Modified Time 12/20/2018 [id number] URINARY TRACT INFECTION INSTRUCTIONS YOU HAVE A [...] condition between 8am-10pm, please call [facility] at [phone] to help navigate your care. krissy Not available 12/20/2018 09:54:27 Reason for Referral None Reported. Results Created Date Observation Date Name Description Value Unit Range Abnormal Flag Note LastModifiedBy Organization Detail LastModifiedTime 12/21/1912/20/2018 urina lysis , dipst ick Appearance cloudy Not Available [facility] [address] [place], [address], 12/20/2018 09:43:21 12/21/1912/20/2018 urina lysis , dipst ick Color yellow Not Available Spr - Home [address] [place], [address], 12/20/2018 09:43:21 12/21/1912/20/2018 urina lysis , dipst ick Glucose negati ve Not Available Spr - Home [address] [place], [address], 12/20/2018 09:43:21 12/21/19 19 12/20/2018 urina lysis , dipst ick Bilirubin negati ve Not Available Spr - Home [address] [place], [address], 12/20/2018 09:43:21 12/21/19 19 12/20/2018 urina lysis , dipst ick Ketones NEG Not Available Spr - Home [address] [place], [address], 12/20/2018 09:43:21 12/21/19 19 12/20/2018 urina lysis , dipst ick Sp. [place] 1.030 Not Available Spr - Home [address] [place], [address], 12/20/2018 09:43:21 12/21/19 19 12/20/2018 urina lysis , dipst ick Blood +++ Not Available Spr - Home [address] [place], [address], 12/20/2018 09:43:21 12/21/1912/20/2018 urina lysis , dipst ick pH 5.0 Not Available Spr - Home [address] [place], [address], 12/20/2018 09:43:21 12/21/1912/20/2018 urina lysis , dipst ick Protein positi ve Not Available Spr - Home [address] [place], [address], 12/20/2018 09:43:21 12/21/1912/20/2018 urina lysis , dipst ick Urobilirubin negati ve Not Available Spr - Home [address] [place], [address], 12/20/2018 09:43:21 12/21/1912/20/2018 urina lysis , dipst ick Nitrites +++ Not Available Spr - [facility] [address] [place], [address], 12/20/2018 09:43:21 12/21/1912/20/2018 urina lysis , dipst ick Leukocytes +++ Not Available Spr - H ome [address] [place], [address], 12/20/2018 09:43:21 12/21/19 19 12/20/2018 cultu re, urine specimen description URINE Not Available [facility] ([facility] - [facility] Locations) Patient Can Go To The Location Of Their Choice, [id number] 12/22/2018 13:06:06 12/21/1912/20/2018 cultu re, urine special requests NONE Not Available [facility] ([facility] Ordering - All Locations) Patient Can Go To The Location Of Their Choice, [id number] 12/22/2018 13:06:06 12/21/1912/22/2018 cultu re, urine culture >100,0 00 COL/ML KLEBSI BAILEY PNEUMO NIAE abnormal Not Available [facility] (Centralized Electronic Ordering - All Locations) Patient Can Go To The Location Of Their Choice, [id number] 12/22/2018 13:06:06 12/21/1912/22/2018 cultu re, urine report status FINAL 2018 Not Available [facility] (Centralized Electronic Ordering - All Locations) Patient Can Go To The Location Of Their Choice, [id number] 12/22/2018 13:06:06 12/21/1912/22/2018 cultu re, urine organism [...] Go To The Location Of Their Choice, [id number] 12/22/2018 13:06:06 12/21/1912/22/2018 cultu re, urine piperacillin /tazobactam PIPERA CILLIN /TAZOB AC SUSCEP TIBLE susceptib le Not Available [facility] (Centralized Electronic Ordering - All Locations) Patient Can Go To The Location Of Their Choice, [id number] 12/22/2018 13:06:06 12/21/1912/22/2018 cultu re, urine trimeth/sulf amethox TRIMET H/SULF AMETHO X SUSCEP TIBLE susceptib le Not Available [facility] (Centralized Electronic Ordering - All Locations) Patient Can Go To The Location Of Their Choice, [id number] 12/22/2018 13:06:06 12/21/1912/22/2018 cultu re, urine tetracycline TETRAC YCLINE SUSCEP TIBLE susceptib le Not Available [facility] (Centralized Electronic Ordering - All Locations) Patient Can Go To The Location Of Their Choice, [id number] 12/22/2018 13:06:06 Result Notes None recorded. Medical [...] [degF] 160 mm[Hg] 80 mm[Hg] Not Available [facility] 9 09:32:19 Social History Question Answer Notes LastModified by Organizat ion Details LastModified Time Tobacco Smoking Status Never Smoker LIDA CASAS [address] [place], [address], [place] [facility] 12/20/2018 09:34:50 Do You [...] Artery Disease N Depression N COPD N Cancer N Stroke N High Cholesterol Y Kidney Disease Y Diabetes Y Asthma N Pulmonary Embolism N Hypertension Y Past Encounters Encounter ID Performer Location Encounter Start Date Encounter Closed Date Diagnosis/Indication Diagnosis SNOMED-CT Code Diagnosis ICD10 Code Diagnosis Note [id number] LIDA CASAS [facility] - HOME [address] [place] [address] 12/20/2018 09:28:30 12/22/2018 11:41:07 Urinary tract infectious disease 07243553 N39.0 Acute condition Increased frequency of urination 829952938 R35.0 Dysuria 81315046 R30.9 Diabetes mellitus 566881 09 E11.9 chronic condition Health Concerns Section Related Observation LastModified by Organization Detai ls LastModified Time None Recorded Concern Status LastModified by Organization Details LastModified Time None Recorded Advance Directives Directive N: Payers Encounter Date Sequence Insurance Name Policy Number Policy Vasquez Covered Member ID Vasquez Member ID Guarantor Name 12/20/2018 1 [place]ICARE [place]: [employer] Hardeep Howard [id number] Hardeep Beasleycarolyn 12/20/2018 2 [facility] OPTIONS (MEDICARE SUPPLEMENT) Hardeep Howard [id number] Hardeep Howard Notes Date Note Type Note [...] HLD, CKD LIDA CASAS [address], [place], [address], [place] [facility] 12/20/2018 10:34:52
--- OUTSIDE RECORDS SUMMARY | 2024-06-17 05:59 | XMS_ITS | Encounter Summary ---
Author Organization [facility]. Address [address] [address] Phone Care Team Providers Care Manufacturing Machine Operator Name Role Phone Maximiliano Schmidt MD Primary Care Provider [phone] [phone] Encounter Details Date Type Department Care Team (Late st Contact Info) Description 06/16/2024 Treatment [facility]. [address] [address] Marco A Sanchez MD [address] [address] End stage renal disease; Dependence [...] Note - Marco A Sanchez MD - 06/16/2024 12:00 AM EDT BASIC NOTE Patient: Hardeep Howard : 1950 Note Author: MARCO A SANCHEZ MD Service Date: 06/16/2024 This patient was personally seen for a basic visit as part of routine monthly dialysis care for end stage renal disease. Attending Mold Stamper: MARCO A SANCHEZ MD Dialysis Location: [facility] Schedule: Shift: 1 OVERVIEW Patient is stable. ADEQUACY ASSESSMENT Kt/V, Natural Log 1.69 (06/11/24) 1.50 (05/14/24) 1.68 (02/13/24) UREA REDUCTION RATIO (%) 77 (06/11/24) 73 (05/14/24) 77 (02/13/24) BUN 47 (06/11/24) 37 (05/14/24) 35 (02/13/24) BUN Post Dialysis 11 (06/11/24) 10 (05/14/24) 8 (02/13/24) Creatinine 5.30 (06/11/24) 3.70 (05/14/24) 4.89 (02/13/24) Bicarbonate (CO2) 20 (06/11/24) 24 (05/14/24) 23 (02/13/24) Sodium 129 (06/11/24) 134 (05/14/24) 132 (02/13/24) ANEMIA ASSESSMENT Hgb 9.7 (06/11/24) 10.6 (05/28/24) 10.7 (05/14/24) Iron Saturation (TSat) 25 (06/11/24) 24 (05/14/24) 9 (02/13/24) Ferritin 1,936 (06/11/24) 2,149 (05/14/24) 969 (02/13/24) Iron 45 (06/11/24) 35 (05/14/24) 18 (02/13/24) TIBC 179 (06/11/24) 144 (05/14/24) 196 (02/13/24) MCV 99.1 (06/11/24) 94.4 (05/14/24) 90.5 (02/13/24) Platelets 226 (06/11/24) 339 (05/14/24) 282 (02/13/24) BMM ASSESSMENT Calcium, Adjusted Total 9.7 06/11/24 10.1 05/14/24 9.8 02/13/24 Calcium 9.4 06/11/24 9.5 05/14/24 9.7 02/13/24 Phosphorus, Serum 4.8 06/11/24 3.8 05/28/24 3.0 05/14/24 Phosphorus 3.6 09/17/23 3.6 09/17/23 Ca*PO4 45.1 06/11/24 28.5 05/14/24 30.1 02/13/24 PTH, Intact 23 06/11/24 140 02/01/24 PTH 101 09/17/23 Vitamin D, 25-Hydroxy 20 02/01/24 Vitamin D, 25-OH, Total 27.6 09/17/23 Magnesium 1.8 06/11/24 1.8 05/14/24 2.0 02/13/24 Alkaline Phosphatase 106 06/11/24 96 05/14/24 108 02/13/24 Aluminum 9 02/01/24 NUTRITION ASSESSMENT Albumin 3.6 06/11/24 3.3 05/14/24 3.9 02/13/24 Potassium 4.7 06/11/24 4.5 05/14/24 3.6 02/13/24 Hemoglobin A1C 6.1 06/11/24 5.2 02/01/24 ADDITIONAL LABS White Blood Cells 9.1 (06/11/24) 9.8 (05/14/24) 13.1 (02/13/24) Cholesterol 109 (06/11/24) 83 (02/01/24) HDL 36 (06/11/24) 33 (02/01/24) LDL-Calc 26 (06/11/24) 6 (02/01/24) Triglycerides 237 (06/11/24) 219 (02/01/24) Hep B Surface Antibody <4 (02/01/24) Uric Acid 7.6 (02/01/24) 8.0 (09/17/23) Signed by: MARCO A SANCHEZ MD on 06/16/2024 at 09:27:40 AM documented in this encounter Plan of Treatment Not on file documented as of this encounter Visit Diagnoses Diagnosis End stage renal disease Dependence on renal dialysis documented in this encounter Care Teams Manufacturing Machine Operator Relationship Specialty Start Date End Date Maximiliano Schmidt MD [address] [place] [address] PCP - General Internal Medicine 07/29/23 documented as of this encounter
[2024-06-17 06:22] LABS: Basophils Absolute Auto 0.1 X10*3/uL (0.0-0.2); Basophils Percent Auto 0.7 % (0-2); Eosinophils Absolute Auto 0.6 X10*3/uL (0.0-0.4); Eosinophils Percent Auto 5.2 % (0-4); Hematocrit 31.7 % (42.0-52.0); Imm Gran Abs Auto 0.25 X10*3/uL (0.00-0.03); Imm Gran Pct Auto 2.3 % (0.0-0.4); Lymphocytes Absolute Auto 1.7 X10*3/uL (1.2-4.9); Mean Corpuscular HGB Conc 31.5 g/dl (31.0-36.0); Mean Corpuscular Hemoglobin 29.9 pg (27.0-33.0); Mean Corpuscular Volume 94.6 fL (80.0-98.0); Mean Platelet Volume 9.4 fL (9.4-12.4); Monocytes Percent Auto 8.8 % (2-11); Neutrophils Absolute Auto 7.3 x10*3/uL (2.0-8.3); Platelet Count 220 X10*3/uL (160-400); Red Blood Count 3.35 X10*6/uL (4.60-5.80); Red Cell Distribution Width 17.2 % (11.0-16.0); White Blood Count 10.9 X10*3/uL (4.8-10.8)
[2024-06-17 06:42] LABS: Anion Gap 16 (12-20); Blood Urea Nitrogen 34 mg/dL (9-16); Calcium 9.7 mg/dL (8.4-10.2); Carbon Dioxide 23 mmol/L (22-29); Chloride 101 mmol/L (96-108); Estimated Glomerular Filt Rate 14; Glucose Random 196 mg/dL (60-115); Sodium 135 mmol/L (135-145)
== END 2024-06-17 05:56 | disposition home or self-care (01) ==
LOC: HO.MMNH1L 05:55
PROVIDERS: Visit Provider Family Medicine
DX: N18.32 Chronic kidney disease, stage 3b (principal); N17.9 Acute kidney failure, unspecified; Z99.2 Dependence on renal dialysis
CPT/HCPCS: 36415; 80048; 85025

== ENCOUNTER 2024-06-22 05:44 | Outpatient (REF) | payer MEDICARE, SELFPAY ==
[2024-06-22 05:37] LABS: MANUAL DIFF FLAG NO
--- OUTSIDE RECORDS SUMMARY | 2024-06-22 05:52 | XMS_ITS | Encounter Summary ---
Author Organization [facility] Address [address] [place] [address] Phone Care Team Providers Care Concrete Polisher Name Role Phone Maximiliano Schmidt MD Primary Care Provider [phone] [phone] Encounter Details Date Type Department Care Team (Late st Contact Info) Description 08/24/2020 Orders Only [facility] [address] [place] [address] Provider, MD Laura [address] [place] [address] Social History Tobacco Use Types Packs/Day [...] on filedocumented in this encounter Care Teams Concrete Polisher Relationship Specialty Start Date End Date Maximiliano Schmidt MD [address] [place] [address] PCP - General Internal Medicine 07/29/23 documented as of this encounter
--- OUTSIDE RECORDS SUMMARY | 2024-06-22 05:52 | XMS_ITS | Encounter Summary ---
Author Organization [facility]. Address [address] [address] Phone Care Team Providers Care Neon Sign Erector Name Role Phone Maximiliano Schmidt MD Primary Care Provider [phone] [phone] Encounter Details Date Type Department Care Team (Late st Contact Info) Description 06/16/2024 Treatment [facility]. [address] [address] Marco A Sanchez MD [address] [address] End stage renal disease; Dependence [...] care for end stage renal disease. Attending Bilingual Middle School Teacher: MARCO A SANCHEZ MD Dialysis Location: [facility] Schedule: Shift: 1 OVERVIEW Patient is [...] dialysis documented in this encounter Care Teams Neon Sign Erector Relationship Specialty Start Date End Date Maximiliano Schmidt MD [address] [place] [address] PCP - General Internal Medicine 07/29/23 documented as of this encounter
--- OUTSIDE RECORDS SUMMARY | 2024-06-22 05:52 | XMS_ITS | Clinical Summary ---
Author Organization [facility] Address [address] [place] [address] Phone Care Team Providers Care Core Analysis Operator Name Role Phone Maximiliano Schmidt MD Primary Care Provider +1 [phone] Allergies Active Allergy Reactions Criticality Noted Date [...] Dyslipidemia 02/04/2023 02/04/2023 Severe obesity 02/04/2023 02/04/2023 transverse abdominal muscle surgeon current use of oral hypoglycemic drug 02/04/2023 02/04/2023 long-term current use of insulin 07/23/2022 02/04/2023 Deafness [...] 06/16/2024 Treatment [facility] [address] [phone] Obed Aleman MD End stage renal disease; Dependence on renal dialysis 06/09/2024 Treatment [facility] [address] [phone] Obed Aleman MD End stage renal disease; Dependence on renal dialysis 06/04/2024 Treatment [facility] [address] [address] Obed Aleman MD End stage renal disease; Dependence on renal dialysis 05/28/2024 Treatment [facility] [address] [address] Obed Aleman MD End stage renal disease; Dependence on renal dialysis 05/19/2024 Treatment [facility] [address] [address] Obed Aleman MD End stage renal disease; Dependence on renal dialysis 05/14/2024 Orders Only [facility] [address] [phone] Obed Aleman MD 05/12/2024 Treatment [facility] [address] [address] Obed Aleman MD End stage renal disease; Dependence on renal dialysis 05/07/2024 Treatment [facility] [address] [address] Obed Aleman MD 05/05/2024 Treatment [facility] [address] [address] Obed Aleman MD 04/25/2024 Treatment [facility] [address] [address] Obed Aleman MD 04/14/2024 Treatment [facility] [address] [address] Obed Aleman MD 04/07/2024 Treatment [facility] [address] [place] [address] [address] [address] Obed Aleman MD 04/02/2024 Treatment [facility] [address] [address] Obed Aleman MD 03/26/2024 Treatment [facility] [place] [address] [facility] [address] [place] [address] Obed Aleman MD from Last 3 Months Immunizations Immunization Administration Dates Next Due Influenza Whole 01/01/2019 [...] Diabetes: Visual Foot Exam 04/08/2020 Pneumococcal Vaccine: 50+ Ye ars (2 of 2 - PPSV23) 05/29/2022 04/03/2022, 12/11/2016 Diabetes: Hemoglobin A1C 09/10/2024 025, 02/01/2024, 11/17/2018 Influenza Vaccine (Season Ended) 2024 12/15/2021, 12/23/2020, 01/01/2019, Additional history exists Pneumococcal Vaccine: Peds ( 0 to 5 Years) and At-Risk Patients (6 to 49 Years) Discontinued 04/03/2022, 12/11/2016 Procedures Procedure Name Priority Date/Time Associated Diagnosis [...] EST from Last 3 Months Results * [facility] (06/11/2024 3:00 AM EDT) Only the most recent of3 resultswithin the time period is included. Lipemia Normal Normal [facility] Icterus Normal Normal [facility] Hemolysis Normal Normal [facility] 06/11/2024 3:00 AM EDT 06/13/2024 1:42 PM EDT us Obed Aleman MD LAB HISTORICA [id number] RESULTS Final Result Performing Organization Address City/[facility]/ZIP Co de Phone Number APS [facility] [address] [place] [address] * (ABNORMAL) Kt/V Natural Log, URR (06/11/2024 [...] EDT us Obed Aleman MD LAB HISTORICA [id number] RESULTS Final Result Performing Organization Address [facility] Co de Phone Number [facility]PS [facility] [address] [place] [address] * Calcium Phosphorus Product, Adjusted (06/11/2024 3:00 [...] PM EDT Obed Aleman MD LAB HISTORICA [id number] RESULTS Final Result Performing Organization Address [facility] de Phone Number [facility]PS [facility] [address] [place] [address] * (ABNORMAL) TSAT (06/11/2024 3:00 AM EDT) Only the most recent of2 resultswithin the time period is included. Iron 45(L) 65 - 175 ug/dL [facility] Transferrin 128(L) 215 - 365 mg/dL [facility] TIBC 179(L) 211 - 406 ug/dL [facility] Iron Saturation (TSat) 25 22 - 52 % [facility] 06/11/2024 3:00 AM EDT 06/13/2024 1:42 PM EDT Obed Aleman MD LAB BLOOD ORDERABLES Final Result Performing Organization Address [facility] de Phone Number [facility]PS [facility] [address] [place] [address] * (ABNORMAL) CBC and Differential (06/11/2024 3:00 AM EDT) Only the most recent of2 resultswithin the time period is included. DIFFERENTIAL MANUAL, 2 Not Indicated [facility] White [...] BLOOD ORDERABLES Final Result Performing Organization Address [facility] de Phone Number [facility] [address] [place] [address] * ALT (06/11/2024 3:00 AM EDT) Only the most recent of2 resultswithin the time period is included. ALT (SGPT) 13 10 - 49 U/L [facility] 06/11/2024 3:00 AM EDT 06/13/2024 1:42 PM EDT us Obed Aleman MD LAB BLOOD ORDERABLES Final Result Performing Organization Address [facility] de Phone Number [facility]PS [facility] [address] [place] [address] * AST (06/11/2024 3:00 AM EDT) Only the most recent of2 resultswithin the time period is included. AST (SGOT) 12 <34 U/L [facility] 06/11/2024 3:00 AM EDT 06/13/2024 1:42 PM EDT us Obed Aleman MD LAB BLOOD ORDERABLES Final Result Performing Organization Address [facility] Co de Phone Number [facility] [address] [place] [address] * Protein, total (06/11/2024 3:00 AM EDT) Only the most recent of2 resultswithin the time period is included. Total Protein 7.0 6.4 - 8.9 g/dL [facility] 06/11/2024 3:00 AM EDT 06/13/2024 1:42 PM EDT Obed Aleman MD LAB BLOOD ORDERABLES Final Result Performing Organization Address [facility] de Phone Number [facility] [address] [place] [address] * Alkaline phosphatase (06/11/2024 3:00 AM EDT) Only the most recent of2 resultswithin the time period is included. Alkaline Phosphatase 106 46 - 116 U/L [facility] 06/11/2024 3:00 AM EDT 06/13/2024 1:42 PM EDT Obed Aleman MD LAB BLOOD ORDERABLES Final Result Performing Organization Address [facility] de Phone Number [facility] [address] [place] [address] * (ABNORMAL) PTH, Intact (06/11/2024 3:00 AM EDT) PTH, Intact 23(L) 160 - 721 pg/mL [facility] Comment: Suggested (KDIGO) ESRD maintenance range is two to nine times the upper normal limit (80.1 pg/mL) for the laboratory. 06/11/2024 3:00 AM EDT 06/13/2024 1:42 PM EDT us Obed Aleman MD LAB BLOOD ORDERABLES Final Result Performing Organization Address [facility] Co de Phone Number [facility] [address] [place] [address] * (ABNORMAL) Magnesium (06/11/2024 3:00 AM EDT) Only the most recent of2 resultswithin the time period is included. Magnesium 1.8(L) 1.9 - 2.7 mg/dL [facility] 06/11/2024 3:00 AM EDT 06/13/2024 1:42 PM EDT us Obed Aleman MD LAB BLOOD ORDERABLES Final Result Performing Organization Address [facility] de Phone Number [facility] [address] [place] [address] * Lactate dehydrogenase (06/11/2024 3:00 AM EDT) Only the most recent of2 resultswithin the time period is included. LDH 189 120 - 246 U/L [facility] 06/11/2024 3:00 AM EDT 06/13/2024 1:42 PM EDT us Obed Aleman MD LAB BLOOD ORDERABLES Final Result Performing Organization Address [facility] de Phone Number [facility] [address] [place] [address] * (ABNORMAL) Hemoglobin A1c (06/11/2024 3:00 AM EDT) Hemoglobin A1C 6.1(H) <5.7 % [facility] Comment: Methodology: Ion-exchange high-performance liquid chromatography (HPLC) HbA1c (NGSP %) ?Suggested Diagnosis >6.4% ? Diabetic 5.7-6.4% ?Pre-Diabetic <5.7% ? Non-Diabetic Diabetic Glucose Control Evaluation: Therapeutic action suggested at >8.0% ADA recommends a glycemic goal of <7.0% 06/11/2024 3:00 AM EDT 06/13/2024 1:33 PM EDT us Obed Aleman MD LAB BLOOD ORDERABLES Final Result Performing Organization Address [facility]/ZIP Co de Phone Number [facility] [address] [place] [address] * (ABNORMAL) Glucose, random (06/11/2024 3:00 AM EDT) Only the most recent of2 resultswithin the time period is included. Glucose 234(H) 74 - 109 mg/dL [facility] 06/11/2024 3:00 AM EDT 06/13/2024 1:42 PM EDT us Obed Aleman MD LAB BLOOD ORDERABLES Final Result Performing Organization Address [facility] de Phone Number [facility] [address] [place] [address] * (ABNORMAL) Ferritin (06/11/2024 3:00 AM EDT) Only the most recent of2 resultswithin the time period is included. Ferritin 1,936(H) 22 - 322 ng/mL [facility] 06/11/2024 3:00 AM EDT 06/13/2024 1:42 PM EDT us Obed Aleman MD LAB BLOOD ORDERABLES Final Result Performing Organization Address [facility] Co de Phone Number [facility] [address] [place] [address] * (ABNORMAL) Creatinine, serum (06/11/2024 3:00 AM EDT) Only the most recent of2 resultswithin the time period is included. Creatinine 5.30(H) 0.70 - 1.30 mg/dL [facility] 06/11/2024 3:00 AM EDT 06/13/2024 1:42 PM EDT us Obed Aleman MD LAB BLOOD ORDERABLES Final Result Performing Organization Address City/[facility]/ZIP Co de Phone Number [facility] [address] [place] [address] * (ABNORMAL) Bilirubin, total (06/11/2024 3:00 AM EDT) Only the most recent of2 resultswithin the time period is included. Total Bilirubin <0.2(L) 0.3 - 1.2 mg/dL [facility] 06/11/2024 3:00 AM EDT 06/13/2024 1:42 PM EDT Obed Aleman MD LAB BLOOD ORDERABLES Final Result [facility] [address] [place] [address] * (ABNORMAL) Lipid panel (06/11/2024 3:00 AM [...] BLOOD ORDERABLES Final Result Performing Organization Address [facility] de Phone Number [facility] [address] [place] [address] * (ABNORMAL) Electrolyte panel (06/11/2024 3:00 AM [...] BLOOD ORDERABLES Final Result Performing Organization Address [facility] de Phone Number [facility] [address] [place] [address] * (ABNORMAL) Hemoglobin (05/28/2024 3:00 AM EDT) Hgb 10.6(L) 13.7 - 17.5 g/dL [facility] Hemoglobin x 3 31.8(L) 41.1 - 52.5 g/dL [facility] 05/28/2024 3:00 AM EDT 05/29/2024 12:42 PM EDT us Obed Aleman MD LAB BLOOD ORDERABLES Final Result Performing Organization Address [facility]/State/ZIP Co de Phone Number [facility] [address] [place] [address] * Phosphorus (05/28/2024 3:00 AM EDT) Phosphorus, Serum 3.8 2.5 - 5.0 mg/dL [facility] 05/28/2024 3:00 AM EDT 05/29/2024 12:39 PM EDT Obed Aleman MD LAB BLOOD ORDERABLES Final Result [facility] [address] [place] [address] from Last 3 Months Insurance [facility] Medicare [facility] Medicare Care Teams Core Analysis Operator Relationship Specialty Start Date End Date Maximiliano Schmidt MD [address] [place] [phone] PCP - General Internal Medicine 07/29/23
--- OUTSIDE RECORDS SUMMARY | 2024-06-22 05:52 | XMS_ITS | Encounter Summary ---
Author Organization [facility] Address [address] [facility] [address] [place] [address] Phone Care Team Providers Care Feed In Worker Name Role Phone Maximiliano Schmidt MD Primary Care Provider [phone] Encounter Details Date Type Department Care Team ([facility] st Contact Info) Description 09/09/2020 Orders Only [facility] [address] [facility] [address] [place] [phone] Jr Martinez MD [address] [facility] [address] [place] [phone] Hyperkalemia Social History Tobacco Use Types Packs/Day [...] (8-23) MG/DL [facility] Creatinine 1.5(H) (0.7-1.2) MG/DL [facility] Sodium 141 (133-145) MMOL/L [facility] Potassium 4.5 (3.6-5.2) MMOL/L [facility] Chloride 104 (98-107) MMOL/L [facility] Bicarbonate (CO2) 21(L) (22-29) MMOL/L [facility] Anion Gap 16 (4-17) [facility] Calcium 9.3 (8.6-10.5) MG/DL [facility] Est GFR Non 47 ML/MIN/1.7 3 M2 [facility] Comment: Creatinine based estimated glomerular filtration rate (eGFR) is calculated using the Chronic Kidney Disease Epidemiology Collaboration (CKD-EPI). The CKD-EPI creatinine equation has not been validated in children (<18 years), women or in some racial or ethnic subgroups other than Caucasians and Americans. EST GFR 55 ML/MIN/1.7 3 M2 [facility] Comment: Creatinine based estimated glomerular filtration rate (eGFR) is calculated using the Chronic Kidney Disease Epidemiology Collaboration (CKD-EPI). The CKD-EPI creatinine equation has not been validated in children (<18 years), women or in some racial or ethnic subgroups other than Caucasians and Americans. Testing performed or reported by [facility], a Service of [facility], [address] [place] [address] Renetta Grider MD, Salesman/Owner [facility]# [id number] Blood (Blood, Venous) 11/04/2020 8:40 AM EDT 11/04/2020 8:42 AM EDT Jr Martinez MD LAB BLOOD ORDERABLES Final Resul t [facility] documented in this encounter Visit Diagnoses Diagnosis Hyperkalemia documented in this encounter Care Teams Feed In Worker Relationship Specialty Start Date End Date Maximiliano Schmidt MD [address] [place] [phone] PCP - General Internal Medicine 07/29/23 documented as of this encounter
--- OUTSIDE RECORDS SUMMARY | 2024-06-22 05:52 | XMS_ITS | Data Portability ---
Author Organization [place] [facility] Address [address] [place] [address] Care Team Providers Care Ux Design Lead Name Role Phone HYUN FALCON Primary Care [...] , dipstick 2018 krissy Spr - Home, [address] [place] [address], [phone], 9 09:54:29 culture, urine - Collected by [facility] 2018 MARQUISE [facility] (Centralized Electronic Ordering - All Locations), Patient Can Go To The Location Of Their Choice, [id number] 9 13:06:07 Referral None recorded. Procedures None recorded. Surgeries None recorded. Imaging None recorded. Medication Orders cephalexin 500 mg capsule 2018 019 nyuzych [id number], [address] [place], [address], 9 09:54:29 Keflex 500 mg capsule 2018 019 INTERFACE [id number], [address] [place], [address], 9 09:54:31 Patient TargetsNo targets recorded. Patient Instructions Encounter Date Encounter Id Patient Instructions Last Modified By Organization Details Last Modified Time 12/20/2018 [id number] URINARY TRACT INFECTION INSTRUCTIONS YOU HAVE A [...] condition between 8am-10pm, please call [facility] at [phone] to help navigate your care. krissy Not available 12/20/2018 09:54:27 Reason for Referral None Reported. Results Created Date Observation Date Name Description Value Unit Range Abnormal Flag Note LastModifiedBy Organization Detail LastModifiedTime 12/21/1912/20/2018 urina lysis , dipst ick Appearance cloudy Not Available Spr - [facility] [address] [place], [address], 12/20/2018 09:43:21 12/21/1912/20/2018 urina lysis , dipst ick Color yellow Not Available Spr - Home [address] [place], [address], 12/20/2018 09:43:21 12/21/1912/20/2018 urina lysis , dipst ick Glucose negati ve Not Available Spr - Home [address] [place], [address], 12/20/2018 09:43:21 12/21/19 19 12/20/2018 urina lysis , dipst ick Bilirubin negati ve Not Available Spr - Home [address] [place], [address], 12/20/2018 09:43:21 12/21/19 19 12/20/2018 urina lysis , dipst ick Ketones NEG Not Available Spr - Home [address] [place], [address], 12/20/2018 09:43:21 12/21/19 19 12/20/2018 urina lysis , dipst ick Sp. [place] 1.030 Not Available Spr - Home [address] [place], [address], 12/20/2018 09:43:21 12/21/19 19 12/20/2018 urina lysis , dipst ick Blood +++ Not Available Spr - Home [address] [place], [address], 12/20/2018 09:43:21 12/21/1912/20/2018 urina lysis , dipst ick pH 5.0 Not Available Spr - Home [address] [place], [address], 12/20/2018 09:43:21 12/21/1912/20/2018 urina lysis , dipst ick Protein positi ve Not Available Spr - Home [address] [place], [address], 12/20/2018 09:43:21 12/21/1912/20/2018 urina lysis , dipst ick Urobilirubin negati ve Not Available Spr - Home [address] [place], [address], 12/20/2018 09:43:21 12/21/1912/20/2018 urina lysis , dipst ick Nitrites +++ Not Available Spr - Dontae e [address] [place], [address], 12/20/2018 09:43:21 12/21/1912/20/2018 urina lysis , dipst ick Leukocytes +++ Not Available Spr - H [place]me [address] [place], [address], 12/20/2018 09:43:21 12/21/19 19 12/20/2018 cultu re, urine specimen description URINE Not Available [facility] ([facility] Order[facility] - All Locations) Patient Can Go To The Location Of Their Choice, [id number] 12/22/2018 13:06:06 12/21/1912/20/2018 cultu re, urine special requests NONE Not Available [facility] (Centralized Electronic Ordering - All Locations) Patient Can Go To The Location Of Their Choice, [id number] 12/22/2018 13:06:06 12/21/1912/22/2018 cultu re, urine culture >100,0 00 COL/ML KLEBSI BAILEY PNEUMO NIAE abnormal Not Available [facility] (Centralized Electronic Ordering - All Locations) Patient Can Go To The Location Of Their Choice, [id number] 12/22/2018 13:06:06 12/21/1912/22/2018 cultu re, urine report status FINAL 2018 Not Available [facility] (Centralized Electronic Ordering - All Locations) Patient Can Go To The Location Of Their Choice, [id number] 12/22/2018 13:06:06 12/21/1912/22/2018 cultu re, urine organism [...] Go To The Location Of Their Choice, [id number] 12/22/2018 13:06:06 12/21/1912/22/2018 cultu re, urine piperacillin /tazobactam PIPERA CILLIN /TAZOB AC SUSCEP TIBLE susceptib le Not Available [facility] (Centralized Electronic Ordering - All Locations) Patient Can Go To The Location Of Their Choice, [id number] 12/22/2018 13:06:06 12/21/1912/22/2018 cultu re, urine trimeth/sulf amethox TRIMET H/SULF AMETHO X SUSCEP TIBLE susceptib le Not Available [facility] (Centralized Electronic Ordering - All Locations) Patient Can Go To The Location Of Their Choice, [id number] 12/22/2018 13:06:06 12/21/1912/22/2018 cultu re, urine tetracycline TETRAC YCLINE SUSCEP TIBLE susceptib le Not Available [facility] (Centralized Electronic Ordering - All Locations) Patient Can Go To The Location Of Their Choice, [id number] 12/22/2018 13:06:06 Result Notes None recorded. Medical [...] [degF] 160 mm[Hg] 80 mm[Hg] Not Available [facility] 9 09:32:19 Social History Question Answer Notes LastModified by Organizat ion Details LastModified Time Tobacco Smoking Status Never Smoker LIDA CASAS [address] [place], [address], [place] [facility] 12/20/2018 09:34:50 Do You [...] Coronary Artery Disease N High Cholesterol Y Cancer N Pulmonary Embolism N Stroke N Hypertension Y Depression N COPD N Asthma N Kidney Disease Y Past Encounters Encounter ID Performer Location Encounter Start Date Encounter Closed Date Diagnosis/Indication Diagnosis SNOMED-CT Code Diagnosis ICD10 Code Diagnosis Note [id number] LIDA CASAS [facility] - HOME [address] [place] [address] 12/20/2018 09:28:30 12/22/2018 11:41:07 Urinary tract infectious disease 91559167 N39.0 Acute condition Increased frequency of urination 446516436 R35.0 Dysuria 84313322 R30.9 Diabetes mellitus 907177 09 E11.9 chronic condition Health Concerns Section Related Observation LastModified by Organization Detai ls LastModified Time None Recorded Concern Status LastModified by Organization Details LastModified Time None Recorded Advance Directives Directive N: Payers Encounter Date Sequence Insurance Name Policy Number Policy Vasquez Covered Member ID Vasquez Member ID Guarantor Name 12/20/2018 1 [place]ICARE [place]: [employer] Hardeep Howard [id number] Hardeep Beasleycarolyn 12/20/2018 2 [facility] OPT[facility] (MEDICARE SUPPLEMENT) Hardeep Howard [id number] Hardeep Howard Notes Date Note Type Note [...] HLD, CKD LIDA CASAS [address], [place], [address], [place] [facility] 12/20/2018 10:34:52
[2024-06-22 06:21] LABS: Basophils Absolute Auto 0.1 X10*3/uL (0.0-0.2); Basophils Percent Auto 0.5 % (0-2); Eosinophils Absolute Auto 0.4 X10*3/uL (0.0-0.4); Eosinophils Percent Auto 3.9 % (0-4); Hematocrit 32.9 % (42.0-52.0); Hemoglobin 10.3 g/dl (14.0-18.0); Imm Gran Abs Auto 0.17 X10*3/uL (0.00-0.03); Imm Gran Pct Auto 1.5 % (0.0-0.4); Lymphocytes Absolute Auto 1.9 X10*3/uL (1.2-4.9); Lymphocytes Percent Auto 17.3 % (20-40); Mean Corpuscular HGB Conc 31.3 g/dl (31.0-36.0); Mean Corpuscular Volume 99.1 fL (80.0-98.0); Mean Platelet Volume 9.2 fL (9.4-12.4); Monocytes Absolute Auto 0.9 X10*3/uL (0.1-1.2); Monocytes Percent Auto 8.4 % (2-11); Neutrophils Absolute Auto 7.6 x10*3/uL (2.0-8.3); Neutrophils Percent Auto 68.4 % (45-73); Platelet Count 251 X10*3/uL (160-400); Red Blood Count 3.32 X10*6/uL (4.60-5.80); Red Cell Distribution Width 17.1 % (11.0-16.0); White Blood Count 11.2 X10*3/uL (4.8-10.8)
[2024-06-22 07:07] LABS: Anion Gap 14 (12-20); Blood Urea Nitrogen 39 mg/dL (9-16); Calcium 9.5 mg/dL (8.4-10.2); Carbon Dioxide 23 mmol/L (22-29); Chloride 99 mmol/L (96-108); Glucose Random 263 mg/dL (60-115); Sodium 132 mmol/L (135-145)
[2024-06-22 07:26] LABS: Estimated Glomerular Filt Rate 12
== END 2024-06-22 05:45 | disposition home or self-care (01) ==
LOC: HO.MMNH1L 05:44
PROVIDERS: Visit Provider Student in an Organized Health Care Education/Training Program
DX: E11.9 Type 2 diabetes mellitus without complications (principal); I10 Essential (primary) hypertension
CPT/HCPCS: 36415; 80048; 85025

== ENCOUNTER 2024-06-29 06:03 | Outpatient (REF) | payer MEDICARE, SELFPAY ==
[2024-06-29 05:36] LABS: MANUAL DIFF FLAG NO
[2024-06-29 06:22] LABS: Basophils Absolute Auto 0.1 X10*3/uL (0.0-0.2); Basophils Percent Auto 0.7 % (0-2); Eosinophils Absolute Auto 0.5 X10*3/uL (0.0-0.4); Eosinophils Percent Auto 4.6 % (0-4); Hemoglobin 11.1 g/dl (14.0-18.0); Imm Gran Abs Auto 0.14 X10*3/uL (0.00-0.03); Imm Gran Pct Auto 1.3 % (0.0-0.4); Lymphocytes Percent Auto 18.5 % (20-40); Mean Corpuscular HGB Conc 30.8 g/dl (31.0-36.0); Mean Corpuscular Hemoglobin 30.7 pg (27.0-33.0); Mean Corpuscular Volume 99.4 fL (80.0-98.0); Mean Platelet Volume 9.2 fL (9.4-12.4); Monocytes Absolute Auto 0.9 X10*3/uL (0.1-1.2); Monocytes Percent Auto 8.2 % (2-11); Neutrophils Absolute Auto 7.1 x10*3/uL (2.0-8.3); Neutrophils Percent Auto 66.7 % (45-73); Platelet Count 260 X10*3/uL (160-400); Red Blood Count 3.62 X10*6/uL (4.60-5.80); Red Cell Distribution Width 16.6 % (11.0-16.0); White Blood Count 10.7 X10*3/uL (4.8-10.8)
[2024-06-29 06:37] LABS: Anion Gap 17 (12-20); Blood Urea Nitrogen 39 mg/dL (9-16); Calcium 9.7 mg/dL (8.4-10.2); Carbon Dioxide 23 mmol/L (22-29); Chloride 101 mmol/L (96-108); Estimated Glomerular Filt Rate 14; Glucose Random 228 mg/dL (60-115); Potassium 4.6 mmol/L (3.3-5.1); Sodium 136 mmol/L (135-145)
== END 2024-06-29 06:04 | disposition home or self-care (01) ==
LOC: HO.MMNH1L 06:03
PROVIDERS: Visit Provider Student in an Organized Health Care Education/Training Program
DX: E11.9 Type 2 diabetes mellitus without complications (principal); F32.A Depression, unspecified
CPT/HCPCS: 36415; 80048; 85025

== ENCOUNTER 2024-07-06 05:54 | Outpatient (REF) | payer MEDICARE, SELFPAY ==
[2024-07-06 05:56] LABS: MANUAL DIFF FLAG NO
--- OUTSIDE RECORDS SUMMARY | 2024-07-06 05:59 | XMS_ITS | Clinical Summary ---
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 02/04/2023 02/04/2023 intermediate current use of insulin 07/23/2022 02/04/2023 Deafness [...] Encounters Date Type Department Care Team Description 07/02/2024 Treatment [facility] [address] [phone] Obed Aleman MD End stage renal disease; Dependence on renal dialysis 06/27/2024 Treatment [facility] [address] [phone] Obed Aleman MD End stage renal disease; Dependence on renal dialysis 06/16/2024 Treatment [facility] [address] [address] Obed Aleman MD End stage renal disease; Dependence on renal dialysis 06/09/2024 Treatment [facility] [address] [address] Obed Aleman MD End stage renal disease; Dependence on renal dialysis 06/04/2024 Treatment [facility] [address] [address] Obed Aleman MD End stage renal disease; Dependence on renal dialysis 05/28/2024 Treatment [facility] [address] [address] Obed Aleman MD End stage renal disease; Dependence on renal dialysis 05/19/2024 Treatment [facility] [address] [address] Obed Aleman MD End stage renal disease; Dependence on renal dialysis 05/14/2024 Orders Only [facility] [address] [address] Obed Aleman MD 05/12/2024 Treatment [facility] [address] [address] Obed Aleman MD End stage renal disease; Dependence on renal dialysis 05/07/2024 Treatment [facility] [address] [address] Obed Aleman MD 05/05/2024 [facility] [address] [address] Obed Aleman MD 04/25/2024 Treatment [facility] [address] [address] Obed Aleman MD 04/14/2024 [facility] [address] [address] Obed Aleman MD 04/07/2024 Treatment [facility] [address] [address] Obed Aleman MD from Last 3 Months [...] Name Priority Date/Time Associated Diagnosis Comments HEMOGLOBIN Routine 06/27/2024 3:00 AM EDT COLLECTION DATE (HC) Routine 06/27/2024 3:00 AM EDT HEMOGLOBIN A1C Routine 06/11/2024 3:00 AM EDT [...] EST from Last 3 Months Results * Collection Date (06/27/2024 3:00 AM EDT) Collection Date See Comment [facility] Comment: Patient sample received may exceed specimen stability, based on the collection date electronically provided. ??When reviewing patient results, verify collection information and consider specimen stability before acting on any critical or panic results. 06/27/2024 3:00 AM EDT us Obed Aleman MD LAB HISTORICA [id number] RESULTS Final Result Performing Organization Address [facility] Co de Phone Number APS [facility] [address] [place] [address] * (ABNORMAL) Hemoglobin (06/27/2024 3:00 AM EDT) Only the most recent of2 resultswithin the time period is included. Hgb 10.6(L) 13.7 - 17.5 g/dL [facility] Hemoglobin x 3 31.8(L) 41.1 - 52.5 g/dL [facility] 06/27/2024 3:00 AM EDT 06/30/2024 12:55 PM EDT us Obed Aleman MD LAB BLOOD ORDERABLES Final Result Performing Organization Address [facility] de Phone Number [facility] [address] [place] [address] * LIH (06/11/2024 3:00 AM EDT) Only the most recent of3 resultswithin the time period is included. Lipemia Normal Normal [facility] Icterus Normal Normal [facility] Hemolysis Normal Normal [facility] 06/11/2024 3:00 AM EDT 06/13/2024 1:42 PM EDT us Obed Aleman MD LAB HISTORICA [id number] RESULTS Final Result Performing Organization Address [facility] Co de Phone Number [facility] [address] [place] [address] * (ABNORMAL) Kt/V Natural Log, URR (06/11/2024 [...] 3:00 AM EDT 06/13/2024 1:24 PM EDT Obed Aleman MD LAB HISTORICA [id number] RESULTS Final Result Performing Organization Address [facility] de Phone Number [facility]PS [facility] [address] [place] [address] * Calcium Phosphorus Product, Adjusted (06/11/2024 3:00 [...] PM EDT Obed Aleman MD LAB HISTORICA [id number] RESULTS Final Result Performing Organization Address [facility] Co de Phone Number [facility] [address] [place] [address] * (ABNORMAL) TSAT (06/11/2024 3:00 AM EDT) Only the most recent of2 resultswithin the time period is included. Pathologist [facility] Iron 45(L) 65 - 175 ug/dL [facility] Transferrin 128(L) 215 - 365 mg/dL [facility] TIBC 179(L) 211 - 406 ug/dL [facility] Iron Saturation (TSat) 25 22 - 52 % [facility] 06/11/2024 3:00 AM EDT 06/13/2024 1:42 PM EDT us Obed Aleman MD LAB BLOOD ORDERABLES Final Result [facility] [address] [place] [address] * (ABNORMAL) CBC and Differential (06/11/2024 3:00 AM EDT) Only the most recent of2 resultswithin the time period is included. [facility] DIFFERENTIAL MANUAL, 2 Not Indicated [facility] [...] 3:00 AM EDT 06/13/2024 1:33 PM EDT Obed Aleman MD LAB BLOOD ORDERABLES Final Result Performing Organization Address [facility] Co de Phone Number [facility] [address] [place] [address] * ALT (06/11/2024 3:00 AM EDT) Only the most recent of2 resultswithin the time period is included. ALT (SGPT) 13 10 - 49 U/L [facility] 06/11/2024 3:00 AM EDT 06/13/2024 1:42 PM EDT Obed Aleman MD LAB BLOOD ORDERABLES Final Result Performing Organization Address [facility] de Phone Number [facility] [address] [place] [address] * AST (06/11/2024 3:00 AM EDT) Only the most recent of2 resultswithin the time period is included. AST (SGOT) 12 <34 U/L [facility] 06/11/2024 3:00 AM EDT 06/13/2024 1:42 PM EDT Obed Aleman MD LAB BLOOD ORDERABLES Final Result Performing Organization Address [facility] de Phone Number [facility] [address] [place] [address] * Protein, total (06/11/2024 3:00 AM EDT) Only the most recent of2 resultswithin the time period is included. Total Protein 7.0 6.4 - 8.9 g/dL [facility] 06/11/2024 3:00 AM EDT 06/13/2024 1:42 PM EDT us Obed Aleman MD LAB BLOOD ORDERABLES Final Result Performing Organization Address [facility] Co de Phone Number [facility] [address] [place] [address] * Alkaline phosphatase (06/11/2024 3:00 AM EDT) Only the most recent of2 resultswithin the time period is included. Alkaline Phosphatase 106 46 - 116 U/L [facility] 06/11/2024 3:00 AM EDT 06/13/2024 1:42 PM EDT us Obed Aleman MD LAB BLOOD ORDERABLES Final Result Performing Organization Address [facility] de Phone Number [facility] [address] [place] [address] * (ABNORMAL) PTH, Intact (06/11/2024 3:00 AM EDT) PTH, Intact 23(L) 160 - 721 pg/mL [facility] Comment: Suggested (KDIGO) ESRD maintenance range is two to nine times the upper normal limit (80.1 pg/mL) for the laboratory. 06/11/2024 3:00 AM EDT 06/13/2024 1:42 PM EDT us Obed Aleman MD LAB BLOOD ORDERABLES Final Result Performing Organization Address [facility] de Phone Number [facility] [address] [place] [address] * (ABNORMAL) Magnesium (06/11/2024 3:00 AM EDT) Only the most recent of2 resultswithin the time period is included. Magnesium 1.8(L) 1.9 - 2.7 mg/dL [facility] 06/11/2024 3:00 AM EDT 06/13/2024 1:42 PM EDT Obed Aleman MD LAB BLOOD ORDERABLES Final Result Performing Organization Address [facility] Co de Phone Number [facility] [address] [place] [address] * Lactate dehydrogenase (06/11/2024 3:00 AM EDT) Only the most recent of2 resultswithin the time period is included. LDH 189 120 - 246 U/L [facility] 06/11/2024 3:00 AM EDT 06/13/2024 1:42 PM EDT Obed Aleman MD LAB BLOOD ORDERABLES Final Result Performing Organization Address [facility] de Phone Number [facility] [address] [place] [address] * (ABNORMAL) Hemoglobin A1c (06/11/2024 3:00 AM EDT) Hemoglobin A1C 6.1(H) <5.7 % [facility] Comment: Methodology: Ion-exchange high-performance liquid chromatography (HPLC) HbA1c (NGSP %) ?Suggested Diagnosis >6.4% ? Diabetic 5.7-6.4% ?Pre-Diabetic <5.7% ? Non-Diabetic Diabetic Glucose Control Evaluation: Therapeutic action suggested at >8.0% ADA recommends a glycemic goal of <7.0% 06/11/2024 3:00 AM EDT 06/13/2024 1:33 PM EDT Obed Aleman MD LAB BLOOD ORDERABLES Final Result Performing Organization Address [facility] de Phone Number [facility] [address] [place] [address] * (ABNORMAL) Glucose, random (06/11/2024 3:00 AM EDT) Only the most recent of2 resultswithin the time period is included. Glucose 234(H) 74 - 109 mg/dL [facility] 06/11/2024 3:00 AM EDT 06/13/2024 1:42 PM EDT Obed Aleman MD LAB BLOOD ORDERABLES Final Result Performing Organization Address [facility] Co de Phone Number [facility] [address] [place] [address] * (ABNORMAL) Ferritin (06/11/2024 3:00 AM EDT) Only the most recent of2 resultswithin the time period is included. Ferritin 1,936(H) 22 - 322 ng/mL [facility] 06/11/2024 3:00 AM EDT 06/13/2024 1:42 PM EDT Obed Aleman MD LAB BLOOD ORDERABLES Final Result Performing Organization Address [facility] de Phone Number [facility] [address] [place] [address] * (ABNORMAL) Creatinine, serum (06/11/2024 3:00 AM EDT) Only the most recent of2 resultswithin the time period is included. Creatinine 5.30(H) 0.70 - 1.30 mg/dL [facility] 06/11/2024 3:00 AM EDT 06/13/2024 1:42 PM EDT Obed Aleman MD LAB BLOOD ORDERABLES Final Result Performing Organization Address [facility] de Phone Number [facility] [address] [place] [address] * (ABNORMAL) Bilirubin, total (06/11/2024 3:00 AM EDT) Only the most recent of2 resultswithin the time period is included. Total Bilirubin <0.2(L) 0.3 - 1.2 mg/dL [facility] 06/11/2024 3:00 AM EDT 06/13/2024 1:42 PM EDT us Obed Aleman MD LAB BLOOD ORDERABLES Final Result [facility] [address] [place] [address] * (ABNORMAL) Lipid panel (06/11/2024 3:00 AM [...] BLOOD ORDERABLES Final Result Performing Organization Address [facility] de Phone Number [facility] [address] [place] [address] * (ABNORMAL) Electrolyte panel (06/11/2024 3:00 AM [...] BLOOD ORDERABLES Final Result Performing Organization Address [facility] Co de Phone Number [facility] [address] [place] [address] * Phosphorus (05/28/2024 3:00 AM EDT) Phosphorus, Serum 3.8 2.5 - 5.0 mg/dL [facility] 05/28/2024 3:00 AM EDT 05/29/2024 12:39 PM EDT Obed Aleman MD LAB BLOOD ORDERABLES Final Result Performing Organization Address [facility] Co de Phone Number [facility] [address] [place] [address] from Last 3 Months Insurance [facility] Member Subscriber Plan / Payer (Ef fective 2020-Present) Name:Hardeep Howard Relation to Subscriber:Self Name:Hardeep Howard Payer ID:[id number] (NAIC) Group ID:Not on file Type:Not on file Address: [facility] [id number] [place] [phone] Medicare [facility] Medicare Care Teams Club Lounge Attendant Relationship Specialty Start Date End Date Maximiliano Schmidt MD [address] [place] [phone] PCP - General Internal Medicine 07/29/23
--- OUTSIDE RECORDS SUMMARY | 2024-07-06 05:59 | XMS_ITS | Encounter Summary ---
Author Organization [facility] Address [address] [facility] [address] [place] [address] Phone Care Team Providers Care Apartment Leasing Agent Name Role Phone Maximiliano Schmidt MD Primary Care Provider [phone] [phone] Encounter Details Date Type Department Care Team ([facility] st Contact Info) Description 09/09/2020 Orders Only [facility] [address] [facility] [address] [place] [phone] Jr Martinez MD [address] [facility] [address] [place] [phone] Hyperkalemia Social History Tobacco Use Types Packs/Day [...] (8-23) MG/DL [facility] Creatinine 1.5(H) (0.7-1.2) MG/DL [facility] Sodium 141 (133-145) MMOL/L [facility] Potassium 4.5 (3.6-5.2) MMOL/L [facility] Chloride 104 (98-107) MMOL/L [facility] Bicarbonate (CO2) 21(L) (22-29) MMOL/L [facility] Anion Gap 16 (4-17) [facility] Calcium 9.3 (8.6-10.5) MG/DL [facility] Est GFR Non 47 ML/MIN/1.7 3 M2 [facility] Comment: Creatinine based estimated glomerular filtration rate (eGFR) is calculated using the Chronic Kidney Disease Epidemiology Collaboration (CKD-EPI). The CKD-EPI creatinine equation has not been validated in children (<18 years), women or in some racial or ethnic subgroups other than Caucasians and Americans. EST GFR 55 ML/MIN/1.7 3 M2 [facility] Comment: Creatinine based estimated glomerular filtration rate (eGFR) is calculated using the Chronic Kidney Disease Epidemiology Collaboration (CKD-EPI). The CKD-EPI creatinine equation has not been validated in children (<18 years), women or in some racial or ethnic subgroups other than Caucasians and Americans. Testing performed or reported by [facility], a Service of [facility], [address] [place] [address] Renetta Grider MD, Computerized Mill Mill Recorder [facility]# [id number] Blood (Blood, Venous) 11/04/2020 8:40 AM EDT 11/04/2020 8:42 AM EDT Jr Martinez MD LAB BLOOD ORDERABLES Final Resul t [facility] documented in this encounter Visit Diagnoses Diagnosis Hyperkalemia documented in this encounter Care Teams Apartment Leasing Agent Relationship Specialty Start Date End Date Maximiliano Schmidt MD [address] [place] [phone] PCP - General Internal Medicine 07/29/23 documented as of this encounter
--- OUTSIDE RECORDS SUMMARY | 2024-07-06 05:59 | XMS_ITS | Encounter Summary ---
Author Organization [facility]. Address [address] [address] Phone Care Team Providers Care Home Theater Experience Expert Name Role Phone Maximiliano Schmidt MD Primary Care Provider [phone] [phone] Encounter Details Date Type Department Care Team (Late st Contact Info) Description 07/02/2024 Treatment [facility]. [address] [address] Marco A Sanchez MD [address] [address] End stage renal disease; Dependence [...] Note - Marco A Sanchez MD - 07/02/2024 12:00 AM EDT BASIC NOTE Patient: Hardeep Howard : 1950 Note Author: MARCO A SANCHEZ MD Service Date: 07/02/2024 This patient was personally seen for a basic visit as part of routine monthly dialysis care for end stage renal disease. Attending Canine Service Instructor Trainer: MARCO A SANCHEZ MD Dialysis Location: [facility] Schedule: Shift: 1 OVERVIEW [...] 134 (05/14/24) 132 (02/13/24) ANEMIA ASSESSMENT Hgb 10.6 (06/27/24) 9.7 (06/11/24) 10.6 (05/28/24) Iron Saturation (TSat) 25 (06/11/24) 24 (05/14/24) [...] Signed by: MARCO A SANCHEZ MD on 07/02/2024 at 02:22:20 PM Transcribed by: MARCO A SANCHEZ MD on 07/02/2024 at 02:22:20 PM documented in this encounter Plan of Treatment Not on file documented as of this encounter Visit Diagnoses Diagnosis End stage renal disease Dependence on renal dialysis documented in this encounter Care Teams Home Theater Experience Expert Relationship Specialty Start Date End Date Maximiliano Schmidt MD [address] [place] [phone] PCP - General Internal Medicine 07/29/23 documented as of this encounter
--- OUTSIDE RECORDS SUMMARY | 2024-07-06 05:59 | XMS_ITS | Encounter Summary ---
Author Organization [facility] Address [address] [place] [address] Phone Care Team Providers Care Field Marketing Director Name Role Phone Maximiliano Schmidt MD Primary Care Provider [phone] [phone] Encounter Details Date Type Department Care Team (Late st Contact Info) Description 08/24/2020 Orders Only [facility] [address] [place] [address] Provider, MD Laura [address] [place] [phone] Social History Tobacco Use Types Packs/Day [...] on filedocumented in this encounter Care Teams Field Marketing Director Relationship Specialty Start Date End Date Maximiliano Schmidt MD [address] [place] [phone] PCP - General Internal Medicine 07/29/23 documented as of this encounter
[2024-07-06 06:08] LABS: Basophils Absolute Auto 0.1 X10*3/uL (0.0-0.2); Basophils Percent Auto 0.6 % (0-2); Eosinophils Absolute Auto 0.3 X10*3/uL (0.0-0.4); Eosinophils Percent Auto 3.3 % (0-4); Hematocrit 41.1 % (42.0-52.0); Hemoglobin 12.6 g/dl (14.0-18.0); Imm Gran Abs Auto 0.17 X10*3/uL (0.00-0.03); Imm Gran Pct Auto 1.8 % (0.0-0.4); Lymphocytes Absolute Auto 1.4 X10*3/uL (1.2-4.9); Lymphocytes Percent Auto 15.1 % (20-40); Mean Corpuscular HGB Conc 30.7 g/dl (31.0-36.0); Mean Corpuscular Hemoglobin 30.6 pg (27.0-33.0); Mean Corpuscular Volume 99.8 fL (80.0-98.0); Mean Platelet Volume 9.3 fL (9.4-12.4); Monocytes Absolute Auto 0.8 X10*3/uL (0.1-1.2); Monocytes Percent Auto 8.1 % (2-11); NRBC Pct Auto 0.3 /100WBC (0.0-0.2); Neutrophils Absolute Auto 6.7 x10*3/uL (2.0-8.3); Neutrophils Percent Auto 71.1 % (45-73); Platelet Count 223 X10*3/uL (160-400); Red Blood Count 4.12 X10*6/uL (4.60-5.80); Red Cell Distribution Width 17.2 % (11.0-16.0); White Blood Count 9.5 X10*3/uL (4.8-10.8)
[2024-07-06 06:57] LABS: Anion Gap 17 (12-20); Blood Urea Nitrogen 45 mg/dL (9-16); Carbon Dioxide 23 mmol/L (22-29); Chloride 98 mmol/L (96-108); Sodium 133 mmol/L (135-145)
[2024-07-06 07:16] LABS: Estimated Glomerular Filt Rate 11; Glucose Random 383 mg/dL (60-115)
== END 2024-07-06 05:55 | disposition home or self-care (01) ==
LOC: HO.MMNH1L 05:54
PROVIDERS: Visit Provider Student in an Organized Health Care Education/Training Program
DX: E11.9 Type 2 diabetes mellitus without complications (principal); I10 Essential (primary) hypertension
CPT/HCPCS: 36415; 80048; 85025

== ENCOUNTER 2024-07-13 06:31 | Outpatient (REF) | payer MEDICARE, SELFPAY ==
[2024-07-13 06:01] LABS: MANUAL DIFF FLAG NO
--- OUTSIDE RECORDS SUMMARY | 2024-07-13 06:35 | XMS_ITS | Encounter Summary ---
Author Organization [facility] Address [address] [place] [address] Phone Care Team Providers Care Sand Miller Name Role Phone Maximiliano Schmidt MD Primary Care Provider [phone] [phone] Encounter Details Date Type Department Care Team (Late st Contact Info) Description 08/24/2020 Orders Only [facility] [address] [place] [address] Provider, MD Laura [address] [place] [address] Social History Tobacco Use Types Packs/Day [...] on filedocumented in this encounter Care Teams Sand Miller Relationship Specialty Start Date End Date Maximiliano Schmidt MD [address] [place] [phone] PCP - General Internal Medicine 07/29/23 documented as of this encounter
--- OUTSIDE RECORDS SUMMARY | 2024-07-13 06:35 | XMS_ITS | Data Portability ---
Author Organization [facility] Address [address] [place] [address] Care Team Providers Care Cane Loader Name Role Phone HYUN FALCON Primary Care Provider [phone] Assessment Encounter Date Assessment Date Assessment LastModified [...] , dipstick 2018 krissy Spr - Home, [address] [place] [address], [phone], 9 09:54:29 culture, urine - Collected by [facility] 2018 MARQUISE [facility] (Centralized Electronic Ordering - All Locations), Patient Can Go To The Location Of Their Choice, [id number] 9 13:06:07 Referral None recorded. Procedures None recorded. Surgeries None recorded. Imaging None recorded. Medication Orders cephalexin 500 mg capsule 2018 019 nyuzych [id number], [address] [place], [address], 9 09:54:29 Keflex 500 mg capsule 2018 019 INTERFACE [id number], [address] [place], [address], 9 09:54:31 Patient TargetsNo targets recorded. Patient Instructions Encounter Date Encounter Id Patient Instructions Last Modified By Organization Details Last Modified Time 12/20/2018 [id number] URINARY TRACT INFECTION INSTRUCTIONS YOU HAVE A [...] condition between 8am-10pm, please call [facility] at [phone] to help navigate your care. krissy Not available 12/20/2018 09:54:27 Reason for Referral None Reported. Results Created Date Observation Date Name Description Value Unit Range Abnormal Flag Note LastModifiedBy Organization Detail LastModifiedTime 12/21/1912/20/2018 urina lysis , dipst ick Appearance cloudy Not Available Spr - [facility] [address] [place], [address], 12/20/2018 09:43:21 12/21/1912/20/2018 urina lysis , dipst ick Color yellow Not Available Spr - Home [address] [place], [address], 12/20/2018 09:43:21 12/21/1912/20/2018 urina lysis , dipst ick Glucose negati ve Not Available Spr - Home [address] [place], [address], 12/20/2018 09:43:21 12/21/19 19 12/20/2018 urina lysis , dipst ick Bilirubin negati ve Not Available Spr - Home [address] [place], [address], 12/20/2018 09:43:21 12/21/19 19 12/20/2018 urina lysis , dipst ick Ketones NEG Not Available Spr - Home [address] [place], [address], 12/20/2018 09:43:21 12/21/19 19 12/20/2018 urina lysis , dipst ick Sp. [place] 1.030 Not Available Spr - Home [address] [place], [address], 12/20/2018 09:43:21 12/21/19 19 12/20/2018 urina lysis , dipst ick Blood +++ Not Available Spr - Home [address] [place], [address], 12/20/2018 09:43:21 12/21/1912/20/2018 urina lysis , dipst ick pH 5.0 Not Available Spr - Home [address] [place], [address], 12/20/2018 09:43:21 12/21/1912/20/2018 urina lysis , dipst ick Protein positi ve Not Available Spr - Home [address] [place], [address], 12/20/2018 09:43:21 12/21/1912/20/2018 urina lysis , dipst ick Urobilirubin negati ve Not Available Spr - Home [address] [place], [address], 12/20/2018 09:43:21 12/21/1912/20/2018 urina lysis , dipst ick Nitrites +++ Not Available Spr - [facility]ont[facility] [address] [place], [address], 12/20/2018 09:43:21 12/21/1912/20/2018 urina lysis , dipst ick Leukocytes +++ Not Available Spr - H [place]me [address] [place], [address], 12/20/2018 09:43:21 12/21/19 19 12/20/2018 cultu re, urine specimen description URINE Not Available [facility] ([facility] Order[facility] - All Locations) Patient Can Go To The Location Of Their Choice, [id number] 12/22/2018 13:06:06 12/21/1912/20/2018 cultu re, urine special requests NONE Not Available [facility] (Centralized Electronic Ordering - All Locations) Patient Can Go To The Location Of Their Choice, [id number] 12/22/2018 13:06:06 12/21/1912/22/2018 cultu re, urine culture >100,0 00 COL/ML KLEBSI BAILEY PNEUMO NIAE abnormal Not Available [facility] (Centralized Electronic Ordering - All Locations) Patient Can Go To The Location Of Their Choice, [id number] 12/22/2018 13:06:06 12/21/1912/22/2018 cultu re, urine report status FINAL 2018 Not Available [facility] (Centralized Electronic Ordering - All Locations) Patient Can Go To The Location Of Their Choice, [id number] 12/22/2018 13:06:06 12/21/1912/22/2018 cultu re, urine organism [...] Go To The Location Of Their Choice, [id number] 12/22/2018 13:06:06 12/21/1912/22/2018 cultu re, urine piperacillin /tazobactam PIPERA CILLIN /TAZOB AC SUSCEP TIBLE susceptib le Not Available [facility] (Centralized Electronic Ordering - All Locations) Patient Can Go To The Location Of Their Choice, [id number] 12/22/2018 13:06:06 12/21/1912/22/2018 cultu re, urine trimeth/sulf amethox TRIMET H/SULF AMETHO X SUSCEP TIBLE susceptib le Not Available [facility] (Centralized Electronic Ordering - All Locations) Patient Can Go To The Location Of Their Choice, [id number] 12/22/2018 13:06:06 12/21/1912/22/2018 cultu re, urine tetracycline TETRAC YCLINE SUSCEP TIBLE susceptib le Not Available [facility] (Centralized Electronic Ordering - All Locations) Patient Can Go To The Location Of Their Choice, [id number] 12/22/2018 13:06:06 Result Notes None recorded. Medical [...] [degF] 160 mm[Hg] 80 mm[Hg] Not Available [facility] 9 09:32:19 Social History Question Answer Notes LastModified by Organizat ion Details LastModified Time Tobacco Smoking Status Never Smoker LIDA CASAS [address] [place], [address], [place] [facility] 12/20/2018 09:34:50 Do You [...] History Condition Response Coronary Artery Disease N COPD N Depression N Cancer N Stroke N High Cholesterol Y Kidney Disease Y Diabetes Y Asthma N Pulmonary Embolism N Hypertension Y Past Encounters Encounter ID Performer Location Encounter Start Date Encounter Closed Date Diagnosis/Indication Diagnosis SNOMED-CT Code Diagnosis ICD10 Code Diagnosis Note [id number] LIDA CASAS [facility] [address] [place] [address] 12/20/2018 09:28:30 12/22/2018 11:41:07 Urinary tract infectious disease 50929905 N39.0 Acute condition Increased frequency of urination 042479615 R35.0 Dysuria 36819537 R30.9 Diabetes mellitus 397314 09 E11.9 chronic condition Health Concerns Section Related Observation LastModified by Organization Detai ls LastModified Time None Recorded Concern Status LastModified by Organization Details LastModified Time None Recorded Advance Directives Directive N: Payers Encounter Date Sequence Insurance Name Policy Number Policy Vasquez Covered Member ID Vasquez Member ID Guarantor Name 12/20/2018 1 [place]: [employer] Hardeep Howard [id number] Hardeep Beasleycarolyn 12/20/2018 2 [facility] OPT[facility] (MEDICARE SUPPLEMENT) Hardeep Howard [id number] Hardeep Howard Notes Date Note Type Note [...] HLD, CKD LIDA CASAS [address], [place], [address], [place] [facility] 12/20/2018 10:34:52
--- OUTSIDE RECORDS SUMMARY | 2024-07-13 06:35 | XMS_ITS | Clinical Summary ---
Author Organization [facility] Address [address] [place] [address] Phone Care Team Providers Care Supervisor Taping Name Role Phone Maximiliano Schmidt MD Primary Care Provider [phone] [phone] Allergies Active Allergy Reactions Criticality Noted Date [...] Dyslipidemia 02/04/2023 02/04/2023 Severe obesity 02/04/2023 02/04/2023 detention current use of oral hypoglycemic drug 02/04/2023 02/04/2023 salvage determiner current use of insulin 07/23/2022 02/04/2023 Deafness [...] 07/02/2024 Treatment [facility] [address] [phone] Obed Aleman MD End stage renal disease; Dependence on renal dialysis 06/27/2024 Treatment [facility] [address] [phone] Obed Aleman MD End stage renal disease; Dependence on renal dialysis 06/16/2024 Treatment [facility] [address] [address] Obed Aleman MD End stage renal disease; Dependence on renal dialysis 06/09/2024 Treatment [facility] [address] [address] Obed Aleman MD End stage renal disease; Dependence on renal dialysis 06/04/2024 Treatment [facility] [address] [address] Obed Aleman MD End stage renal disease; Dependence on renal dialysis 05/28/2024 Treatment [facility] [address] [address] Obed Aleman MD End stage renal disease; Dependence on renal dialysis 05/19/2024 Treatment [facility] [address] [address] Obed Aleman MD End stage renal disease; Dependence on renal dialysis 05/14/2024 Orders Only [facility] [address] [address] Obed Aleman MD 05/12/2024 Treatment [facility] [address] [address] Obed Aleman MD End stage renal disease; Dependence on renal dialysis 05/07/2024 Treatment [facility] [address] [address] Obed Aleman MD 05/05/2024 Treatment [facility] [address] [phone] Obed Aleman MD 04/25/2024 Treatment [facility] [address] [address] Obed Aleman MD from Last 3 Months [...] Priority Date/Time Associated Diagnosis Comments HEMOGLOBIN Routine 07/02/2024 3:00 AM EDT HEMOGLOBIN Routine 06/27/2024 3:00 AM EDT COLLECTION [...] EST from Last 3 Months Results * (ABNORMAL) Hemoglobin (07/02/2024 3:00 AM EDT) Only the most recent of3 resultswithin the time period is included. Hgb 11.1(L) 13.7 - 17.5 g/dL [facility] Hemoglobin x 3 33.3(L) 41.1 - 52.5 g/dL [facility] 07/02/2024 3:00 AM EDT 07/03/2024 12:36 PM EDT us Obed Almean MD LAB BLOOD ORDERABLES Final Result Performing Organization Address [facility] de Phone Number [facility]PS [facility] [address] [place] [address] * Collection Date (06/27/2024 3:00 AM EDT) Collection Date See Comment [facility] Comment: Patient sample received may exceed specimen stability, based on the collection date electronically provided. ??When reviewing patient results, verify collection information and consider specimen stability before acting on any critical or panic results. 06/27/2024 3:00 AM EDT us Obed Aleman MD LAB HISTORICA [id number] RESULTS Final Result Performing Organization Address [facility] de Phone Number [facility] [address] [place] [address] * LIH (06/11/2024 3:00 AM EDT) Only the most recent of3 resultswithin the time period is included. Pathologist [facility] Lipemia Normal Normal [facility] Icterus Normal Normal [facility] Hemolysis Normal Normal [facility] 06/11/2024 3:00 AM EDT 06/13/2024 1:42 PM EDT us Obed Aleman MD LAB HISTORICA [id number] RESULTS Final Result Performing Organization Address [facility] de Phone Number [facility] [address] [place] [address] * (ABNORMAL) Kt/V Natural Log, URR (06/11/2024 [...] PM EDT Obed Aleman MD LAB HISTORICA [id number] RESULTS Final Result [facility] [address] [place] [address] * Calcium Phosphorus Product, Adjusted (06/11/2024 3:00 [...] PM EDT Obed Aleman MD LAB HISTORICA [id number] RESULTS Final Result [facility] [address] [place] [address] * (ABNORMAL) TSAT (06/11/2024 3:00 AM EDT) [...] ORDERABLES Final Result [facility] [address] [place] [address] * (ABNORMAL) CBC and Differential (06/11/2024 3:00 [...] BLOOD ORDERABLES Final Result Performing Organization Address [facility] Co de Phone Number [facility] [address] [place] [address] * ALT (06/11/2024 3:00 AM EDT) Only the most recent of2 resultswithin the time period is included. ALT (SGPT) 13 10 - 49 U/L [facility] 06/11/2024 3:00 AM EDT 06/13/2024 1:42 PM EDT us Obed Aleman MD LAB BLOOD ORDERABLES Final Result Performing Organization Address [facility] de Phone Number [facility] [address] [place] [address] * AST (06/11/2024 3:00 AM EDT) Only the most recent of2 resultswithin the time period is included. AST (SGOT) 12 <34 U/L [facility] 06/11/2024 3:00 AM EDT 06/13/2024 1:42 PM EDT us Obed Aleman MD LAB BLOOD ORDERABLES Final Result Performing Organization Address [facility] Phone Number [facility] [address] [place] [address] * Protein, total (06/11/2024 3:00 AM EDT) Only the most recent of2 resultswithin the time period is included. Total Protein 7.0 6.4 - 8.9 g/dL [facility] 06/11/2024 3:00 AM EDT 06/13/2024 1:42 PM EDT us Obed Aleman MD LAB BLOOD ORDERABLES Final Result Performing Organization Address [facility] Co de Phone Number [facility] [address] [place] [address] * Alkaline phosphatase (06/11/2024 3:00 AM EDT) Only the most recent of2 resultswithin the time period is included. Alkaline Phosphatase 106 46 - 116 U/L [facility] 06/11/2024 3:00 AM EDT 06/13/2024 1:42 PM EDT Obed Aleman MD LAB BLOOD ORDERABLES Final Result Performing Organization Address [facility] de Phone Number [facility] [address] [place] [address] * (ABNORMAL) PTH, Intact (06/11/2024 3:00 AM EDT) PTH, Intact 23(L) 160 - 721 pg/mL [facility] Comment: Suggested (KDIGO) ESRD maintenance range is two to nine times the upper normal limit (80.1 pg/mL) for the laboratory. 06/11/2024 3:00 AM EDT 06/13/2024 1:42 PM EDT us Obed Aleman MD LAB BLOOD ORDERABLES Final Result Performing Organization Address [facility] de Phone Number [facility] [address] [place] [address] * (ABNORMAL) Magnesium (06/11/2024 3:00 AM EDT) Only the most recent of2 resultswithin the time period is included. Magnesium 1.8(L) 1.9 - 2.7 mg/dL [facility] 06/11/2024 3:00 AM EDT 06/13/2024 1:42 PM EDT us Obed Aleman MD LAB BLOOD ORDERABLES Final Result Performing Organization Address [facility] Co de Phone Number [facility] [address] [place] [address] * Lactate dehydrogenase (06/11/2024 3:00 AM EDT) Only the most recent of2 resultswithin the time period is included. LDH 189 120 - 246 U/L [facility] 06/11/2024 3:00 AM EDT 06/13/2024 1:42 PM EDT Obed Aleman MD LAB BLOOD ORDERABLES Final Result Performing Organization Address [facility] Co de Phone Number [facility] [address] [place] [address] * (ABNORMAL) Hemoglobin A1c (06/11/2024 3:00 AM [...] BLOOD ORDERABLES Final Result Performing Organization Address [facility] Co de Phone Number [facility] [address] [place] [address] * (ABNORMAL) Glucose, random (06/11/2024 3:00 AM EDT) Only the most recent of2 resultswithin the time period is included. Glucose 234(H) 74 - 109 mg/dL [facility] 06/11/2024 3:00 AM EDT 06/13/2024 1:42 PM EDT us Obed Aleman MD LAB BLOOD ORDERABLES Final Result Performing Organization Address [facility] Co de Phone Number [facility] [address] [place] [address] * (ABNORMAL) Ferritin (06/11/2024 3:00 AM EDT) Only the most recent of2 resultswithin the time period is included. Ferritin 1,936(H) 22 - 322 ng/mL [facility] 06/11/2024 3:00 AM EDT 06/13/2024 1:42 PM EDT us Obed Aleman MD LAB BLOOD ORDERABLES Final Result Performing Organization Address [facility] Co de Phone Number [facility] [address] [place] [address] * (ABNORMAL) Creatinine, serum (06/11/2024 3:00 AM EDT) Only the most recent of2 resultswithin the time period is included. Creatinine 5.30(H) 0.70 - 1.30 mg/dL [facility] 06/11/2024 3:00 AM EDT 06/13/2024 1:42 PM EDT us Obed Aleman MD LAB BLOOD ORDERABLES Final Result Performing Organization Address [facility] de Phone Number [facility] [address] [place] [address] * (ABNORMAL) Bilirubin, total (06/11/2024 3:00 AM EDT) Only the most recent of2 resultswithin the time period is included. Total Bilirubin <0.2(L) 0.3 - 1.2 mg/dL [facility] 06/11/2024 3:00 AM EDT 06/13/2024 1:42 PM EDT us Obed Aleman MD LAB BLOOD ORDERABLES Final Result Performing Organization Address [facility] Co de Phone Number [facility] [address] [place] [address] * (ABNORMAL) Lipid panel (06/11/2024 3:00 AM [...] Result Performing Organization Address [facility] de Phone Number [facility] [address] [place] [address] * (ABNORMAL) Electrolyte panel (06/11/2024 3:00 AM [...] BLOOD ORDERABLES Final Result Performing Organization Address City/[facility]/ZIP Co de Phone Number [facility] [address] [place] [address] * Phosphorus (05/28/2024 3:00 AM EDT) Phosphorus, Serum 3.8 2.5 - 5.0 mg/dL [facility] 05/28/2024 3:00 AM EDT 05/29/2024 12:39 PM EDT Obed Aleman MD LAB BLOOD ORDERABLES Final Result Performing Organization Address City/[facility]/ZIP Co de Phone Number [facility] [address] [place] [address] from Last 3 Months Insurance [facility] Medicare [facility] Medicare Care Teams Supervisor Taping Relationship Specialty Start Date End Date Maximiliano Schmidt MD [address] [place] [phone] PCP - General Internal Medicine 07/29/23
--- OUTSIDE RECORDS SUMMARY | 2024-07-13 06:35 | XMS_ITS | Encounter Summary ---
Author Organization [facility] Address [address] [facility] [address] [place] [address] Phone Care Team Providers Care Policy Writer Name Role Phone Maximiliano Schmidt MD Primary Care Provider [phone] [phone] Encounter Details Date Type Department Care Team ([facility] st Contact Info) Description 09/09/2020 Orders Only [facility] [address] [facility] [address] [facility] [address] [place] [phone] Jr Martinez MD [address] [facility] [address] [place] [phone] Hyperkalemia Social History Tobacco Use Types Packs/Day [...] (8-23) MG/DL [facility] Creatinine 1.5(H) (0.7-1.2) MG/DL [facility] Sodium 141 (133-145) MMOL/L [facility] Potassium 4.5 (3.6-5.2) MMOL/L [facility] Chloride 104 (98-107) MMOL/L [facility] Bicarbonate (CO2) 21(L) (22-29) MMOL/L [facility] Anion Gap 16 (4-17) [facility] Calcium 9.3 (8.6-10.5) MG/DL [facility] Est GFR Non 47 ML/MIN/1.7 3 M2 [facility] Comment: Creatinine based estimated glomerular filtration rate (eGFR) is calculated using the Chronic Kidney Disease Epidemiology Collaboration (CKD-EPI). The CKD-EPI creatinine equation has not been validated in children (<18 years), women or in some racial or ethnic subgroups other than Caucasians and Americans. EST GFR 55 ML/MIN/1.7 3 M2 [facility] Comment: Creatinine based estimated glomerular filtration rate (eGFR) is calculated using the Chronic Kidney Disease Epidemiology Collaboration (CKD-EPI). The CKD-EPI creatinine equation has not been validated in children (<18 years), women or in some racial or ethnic subgroups other than Caucasians and Americans. Testing performed or reported by [facility], a Service of [facility], [address] [place] [address] Renetta Grider MD, Binder Sorter [facility]# [id number] Blood (Blood, Venous) 11/04/2020 8:40 AM EDT 11/04/2020 8:42 AM EDT Jr Martinez MD LAB BLOOD ORDERABLES Final Resul t [facility] documented in this encounter Visit Diagnoses Diagnosis Hyperkalemia documented in this encounter Care Teams Policy Writer Relationship Specialty Start Date End Date Maximiliano Schmidt MD [address] [place] [phone] PCP - General Internal Medicine 07/29/23 documented as of this encounter
[2024-07-13 07:09] LABS: Anion Gap 14 (12-20); Basophils Absolute Auto 0.1 X10*3/uL (0.0-0.2); Basophils Percent Auto 0.7 % (0-2); Blood Urea Nitrogen 38 mg/dL (9-16); Calcium 9.9 mg/dL (8.4-10.2); Carbon Dioxide 26 mmol/L (22-29); Chloride 103 mmol/L (96-108); Eosinophils Absolute Auto 0.4 X10*3/uL (0.0-0.4); Eosinophils Percent Auto 4.1 % (0-4); Estimated Glomerular Filt Rate 13; Glucose Random 228 mg/dL (60-115); Hematocrit 39.5 % (42.0-52.0); Imm Gran Abs Auto 0.11 X10*3/uL (0.00-0.03); Imm Gran Pct Auto 1.3 % (0.0-0.4); Lymphocytes Absolute Auto 1.5 X10*3/uL (1.2-4.9); Lymphocytes Percent Auto 17.9 % (20-40); Mean Corpuscular HGB Conc 30.4 g/dl (31.0-36.0); Mean Corpuscular Hemoglobin 30.5 pg (27.0-33.0); Mean Corpuscular Volume 100.3 fL (80.0-98.0); Mean Platelet Volume 9.4 fL (9.4-12.4); Monocytes Absolute Auto 0.8 X10*3/uL (0.1-1.2); Monocytes Percent Auto 9.1 % (2-11); Neutrophils Absolute Auto 5.7 x10*3/uL (2.0-8.3); Neutrophils Percent Auto 66.9 % (45-73); Platelet Count 187 X10*3/uL (160-400); Potassium 4.6 mmol/L (3.3-5.1); Red Blood Count 3.94 X10*6/uL (4.60-5.80); Red Cell Distribution Width 17.1 % (11.0-16.0); Sodium 138 mmol/L (135-145); White Blood Count 8.6 X10*3/uL (4.8-10.8)
== END 2024-07-13 06:32 | disposition home or self-care (01) ==
LOC: HO.MMNH1L 06:31
PROVIDERS: Visit Provider Student in an Organized Health Care Education/Training Program
DX: E11.9 Type 2 diabetes mellitus without complications (principal); I10 Essential (primary) hypertension
CPT/HCPCS: 36415; 80048; 85025

== ENCOUNTER 2024-07-17 06:11 | Outpatient (REF) | payer MEDICARE, SELFPAY ==
--- OUTSIDE RECORDS SUMMARY | 2024-07-17 06:14 | XMS_ITS | Encounter Summary ---
Author Organization [facility] Address [address] [address] Phone Care Team Providers Care Ibm Websphere Commerce Developer Name Role Phone Maximiliano Schmidt MD Primary Care Provider [phone] [phone] Encounter Details Date Type Department Care Team (Late st Contact Info) Description 07/16/2024 Treatment [facility] [address] [phone] Marco A Sanchez MD [address] [phone] End stage renal disease; Dependence [...] Note - Marco A Sanchez MD - 07/16/2024 12:00 AM EDT Patient: Hardeep Howard : 1950 Note Type: Dialysis Rounds-Comp Service Date: 07/16/2024 This patient was personally seen for a complete visit as part of routine monthly dialysis care for end stage renal disease. Attending Nurse Clinical: MARCO A SANCHEZ MD Dialysis Location: [facility] Schedule: Shift: 1 OVERVIEW Patient is stable. HOME MEDICATIONS Medications reviewed. BP AND FLUID ASSESSMENT Acceptable blood pressure. Fluid status acceptable. ADEQUACY ASSESSMENT Kt/V, Natural Log 1.69 (06/11/24) 1.50 (05/14/24) 1.68 (02/13/24) UREA REDUCTION RATIO (%) 77 (06/11/24) 73 (05/14/24) 77 (02/13/24) BUN 47 (06/11/24) 37 (05/14/24) 35 (02/13/24) BUN Post Dialysis 11 (06/11/24) 10 (05/14/24) 8 (02/13/24) Creatinine 5.30 (06/11/24) 3.70 (05/14/24) 4.89 (02/13/24) Bicarbonate (CO2) 20 (06/11/24) 24 (05/14/24) 23 (02/13/24) Sodium 129 (06/11/24) 134 (05/14/24) 132 (02/13/24) Target met. Prescription compliance acceptable. ACCESS ASSESSMENT Vascular access examined. ANEMIA ASSESSMENT Hgb 11.1 (07/02/24) 10.6 (06/27/24) 9.7 (06/11/24) Iron Saturation (TSat) 25 (06/11/24) 24 (05/14/24) 9 (02/13/24) Ferritin 1,936 (06/11/24) 2,149 (05/14/24) 969 (02/13/24) Iron 45 (06/11/24) 35 (05/14/24) 18 (02/13/24) TIBC 179 (06/11/24) 144 (05/14/24) 196 (02/13/24) MCV 99.1 (06/11/24) 94.4 (05/14/24) 90.5 (02/13/24) Platelets 226 (06/11/24) 339 (05/14/24) 282 (02/13/24) Anemia targets met. Iron deficiency noted. BMM ASSESSMENT Calcium, Adjusted Total 9.7 06/11/24 [...] 96 05/14/24 108 02/13/24 Aluminum 9 02/01/24 PTH within target. Phosphorus controlled. Calcium controlled. Bone and mineral metabolism parameters reviewed. NUTRITION ASSESSMENT Albumin 3.6 06/11/24 3.3 05/14/24 3.9 02/13/24 Potassium 4.7 06/11/24 4.5 05/14/24 3.6 02/13/24 Hemoglobin A1C 6.1 06/11/24 5.2 02/01/24 Albumin not at goal. PHYSICAL EXAM Exam performed. Vital Signs Reviewed. CV - Blood pressure noted. No edema. EXT - No ulcers. ADDITIONAL LABS White Blood Cells 9.1 (06/11/24) 9.8 (05/14/24) 13.1 (02/13/24) Cholesterol 109 (06/11/24) 83 (02/01/24) HDL 36 (06/11/24) 33 (02/01/24) LDL-Calc 26 (06/11/24) 6 (02/01/24) Triglycerides 237 (06/11/24) 219 (02/01/24) Hep B Surface Antibody <4 (02/01/24) Uric Acid 7.6 (02/01/24) 8.0 (09/17/23) Signed by: MARCO A SANCHEZ MD on 07/16/2024 at 10:13:23 PM Transcribed by: MARCO A SANCHEZ MD on 07/16/2024 at 10:13:23 PM documented in this encounter Plan of Treatment Not on file documented as of this encounter Visit Diagnoses Diagnosis End stage renal disease Dependence on renal dialysis documented in this encounter Care Teams Ibm Websphere Commerce Developer Relationship Specialty Start Date End Date Maximiliano Schmidt MD [address] [place] [phone] PCP - General Internal Medicine 07/29/23 documented as of this encounter
--- OUTSIDE RECORDS SUMMARY | 2024-07-17 06:14 | XMS_ITS | Clinical Summary ---
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 07/23/2022 02/04/2023 Deafness [...] Encounters Date Type Department Care Team Description 07/16/2024 Treatment [facility] [address] [phone] Obed Aleman MD End stage renal disease; Dependence on renal dialysis 07/02/2024 Treatment [facility] [address] [phone] Obed Aleman MD End stage renal disease; Dependence on renal dialysis 06/27/2024 Treatment [facility] [address] [phone] Obed Aleman MD End stage renal disease; Dependence on renal dialysis 06/16/2024 Treatment [facility] [address] [phone] Obed Aleman MD End stage renal disease; Dependence on renal dialysis 06/09/2024 Treatment [facility] [address] [phone] Obed Aleman MD End stage renal disease; Dependence on renal dialysis 06/04/2024 Treatment [facility] [address] [phone] Obed Aleman MD End stage renal disease; Dependence on renal dialysis 05/28/2024 Treatment [facility] [address] [address] Obed Aleman MD End stage renal disease; Dependence on renal dialysis 05/19/2024 Treatment [facility] [address] [phone] Obed Aleman MD End stage renal disease; Dependence on renal dialysis 05/14/2024 Orders Only [facility] [address] [phone] Obed Aleman MD 05/12/2024 Treatment [facility] [address] [address] Obed Aleman MD End stage renal disease; Dependence on renal dialysis 05/07/2024 Treatment [facility] [address] [phone] Obed Aleman MD 05/05/2024 Treatment [facility] [address] [phone] Obed Aleman MD 04/25/2024 Treatment [facility] [address] [phone] Obed Aleman MD from Last 3 Months [...] Procedure Name Priority Date/Time Associated Diagnosis Comments HEPATITIS B SURFACE ANTIGEN W/REFL CONFIRM Routine 07/09/2024 3:00 AM EDT HEMOGLOBIN Routine 07/02/2024 3:00 AM EDT HEMOGLOBIN [...] EST from Last 3 Months Results * Hepatitis B Surface Ag w/Reflex Confirmation (07/09/2024 3:00 AM EDT) Hep B Surface Antigen Negative Negative [facility] 07/09/2024 3:00 AM EDT 07/10/2024 1:53 PM EDT us Obed Aleman MD LAB BLOOD ORDERABLES Final Result Performing Organization Address City/[facility]/ZIP Co de Phone Number [facility] [address] [place] [address] * (ABNORMAL) Hemoglobin (07/02/2024 3:00 AM EDT) Only the most recent of3 resultswithin the time period is included. Hgb 11.1(L) 13.7 - 17.5 g/dL [facility] Hemoglobin x 3 33.3(L) 41.1 - 52.5 g/dL [facility] 07/02/2024 3:00 AM EDT 07/03/2024 12:36 PM EDT us Obed Aleman MD LAB BLOOD ORDERABLES Final Result Performing Organization Address [facility] Co de Phone Number [facility] [address] [place] [address] * Collection Date (06/27/2024 3:00 AM EDT) Collection Date See Comment [facility] Comment: Patient sample received may exceed specimen stability, based on the collection date electronically provided. ??When reviewing patient results, verify collection information and consider specimen stability before acting on any critical or panic results. 06/27/2024 3:00 AM EDT us Obed Aleman MD LAB HISTORICA [id number] RESULTS Final Result Performing Organization Address City/[facility]/ZIP Co de Phone Number [facility] [address] [place] [address] * LIH (06/11/2024 3:00 AM EDT) Only the most recent of3 resultswithin the time period is included. Pathologist [facility] Lipemia Normal Normal [facility] Icterus Normal Normal [facility] Hemolysis Normal Normal [facility] 06/11/2024 3:00 AM EDT 06/13/2024 1:42 PM EDT Obed Aleman MD LAB HISTORICA [id number] RESULTS Final Result Performing Organization Address City/[facility] Co de Phone Number [facility] [address] [place] [address] * (ABNORMAL) Kt/V Natural Log, URR (06/11/2024 3:00 AM EDT) Only the most recent of2 resultswithin the time period is included. Pathologist [facility] Treatment Time 244 min [facility] Pre-Weight, lb [...] PM EDT Obed Aleman MD LAB HISTORICA [id number] RESULTS Final Result Performing Organization Address [facility] Co de Phone Number [facility] [address] [place] [address] * Calcium Phosphorus Product, Adjusted (06/11/2024 3:00 AM EDT) Only the most recent of2 resultswithin the time period is included. Pathologist [facility] Albumin 3.6 3.6 - 5.4 g/dL [facility] Calcium 9.4 8.6 - 10.3 mg/dL [facility] Phosphorus, Serum 4.8 2.5 - 5.0 mg/dL [facility] Ca*PO4 45.1 <55.0 mg2/dL2 [facility] Calcium, Adjusted Total 9.7 8.6 - 10.3 mg/dL [facility] CA*PO4 CORRCTD 46.6 <55.0 mg2/dL2 [facility] 06/11/2024 3:00 AM EDT 06/13/2024 1:42 PM EDT Obed Aleman MD LAB HISTORICA [id number] RESULTS Final Result Performing Organization Address [facility] Co de Phone Number [facility] [address] [place] [address] * (ABNORMAL) TSAT (06/11/2024 3:00 AM EDT) [...] Final Result Performing Organization Address [facility] Co de Phone Number [facility] [address] [place] [address] * (ABNORMAL) CBC and Differential (06/11/2024 3:00 [...] BLOOD ORDERABLES Final Result Performing Organization Address City/[facility] Co de Phone Number [facility] [address] [place] [address] * ALT (06/11/2024 3:00 AM EDT) Only the most recent of2 resultswithin the time period is included. ALT (SGPT) 13 10 - 49 U/L [facility] 06/11/2024 3:00 AM EDT 06/13/2024 1:42 PM EDT Obed Aleman MD LAB BLOOD ORDERABLES Final Result Performing Organization Address City/[facility] Co de Phone Number [facility] [address] [place] [address] * AST (06/11/2024 3:00 AM EDT) Only the most recent of2 resultswithin the time period is included. AST (SGOT) 12 <34 U/L [facility] 06/11/2024 3:00 AM EDT 06/13/2024 1:42 PM EDT us Obed Aleman MD LAB BLOOD ORDERABLES Final Result Performing Organization Address [facility] de Phone Number [facility] [address] [place] [address] * Protein, total (06/11/2024 3:00 AM EDT) Only the most recent of2 resultswithin the time period is included. Total Protein 7.0 6.4 - 8.9 g/dL [facility] 06/11/2024 3:00 AM EDT 06/13/2024 1:42 PM EDT us Obed Aleman MD LAB BLOOD ORDERABLES Final Result Performing Organization Address [facility] de Phone Number [facility] [address] [place] [address] * Alkaline phosphatase (06/11/2024 3:00 AM EDT) Only the most recent of2 resultswithin the time period is included. Alkaline Phosphatase 106 46 - 116 U/L [facility] 06/11/2024 3:00 AM EDT 06/13/2024 1:42 PM EDT Obed Aleman MD LAB BLOOD ORDERABLES Final Result Performing Organization Address [facility] de Phone Number [facility] [address] [place] [address] * (ABNORMAL) PTH, Intact (06/11/2024 3:00 AM EDT) PTH, Intact 23(L) 160 - 721 pg/mL [facility] Comment: Suggested (KDIGO) ESRD maintenance range is two to nine times the upper normal limit (80.1 pg/mL) for the laboratory. 06/11/2024 3:00 AM EDT 06/13/2024 1:42 PM EDT Obed Aleman MD LAB BLOOD ORDERABLES Final Result Performing Organization Address [facility] de Phone Number [facility] [address] [place] [address] * (ABNORMAL) Magnesium (06/11/2024 3:00 AM EDT) Only the most recent of2 resultswithin the time period is included. Magnesium 1.8(L) 1.9 - 2.7 mg/dL [facility] 06/11/2024 3:00 AM EDT 06/13/2024 1:42 PM EDT Obed Aleman MD LAB BLOOD ORDERABLES Final Result Performing Organization Address [facility] de Phone Number [facility] [address] [place] [address] * Lactate dehydrogenase (06/11/2024 3:00 AM EDT) Only the most recent of2 resultswithin the time period is included. LDH 189 120 - 246 U/L [facility] 06/11/2024 3:00 AM EDT 06/13/2024 1:42 PM EDT Obed Aleman MD LAB BLOOD ORDERABLES Final Result Performing Organization Address [facility] de Phone Number [facility] [address] [place] [address] * (ABNORMAL) Hemoglobin A1c (06/11/2024 3:00 AM [...] Final Result Performing Organization Address [facility] de Phone Number [facility] [address] [place] [address] * (ABNORMAL) Glucose, random (06/11/2024 3:00 AM EDT) Only the most recent of2 resultswithin the time period is included. Glucose 234(H) 74 - 109 mg/dL [facility] 06/11/2024 3:00 AM EDT 06/13/2024 1:42 PM EDT Obed Aleman MD LAB BLOOD ORDERABLES Final Result Performing Organization Address [facility] de Phone Number [facility] [address] [place] [address] * (ABNORMAL) Ferritin (06/11/2024 3:00 AM EDT) Only the most recent of2 resultswithin the time period is included. Ferritin 1,936(H) 22 - 322 ng/mL [facility] 06/11/2024 3:00 AM EDT 06/13/2024 1:42 PM EDT Obed Aleman MD LAB BLOOD ORDERABLES Final Result Performing Organization Address [facility] de Phone Number [facility] [address] [place] [address] * (ABNORMAL) Creatinine, serum (06/11/2024 3:00 AM EDT) Only the most recent of2 resultswithin the time period is included. Creatinine 5.30(H) 0.70 - 1.30 mg/dL [facility] 06/11/2024 3:00 AM EDT 06/13/2024 1:42 PM EDT us Obed Aleman MD LAB BLOOD ORDERABLES Final Result Performing Organization Address [facility] de Phone Number [facility] [address] [place] [address] * (ABNORMAL) Bilirubin, total (06/11/2024 3:00 AM EDT) Only the most recent of2 resultswithin the time period is included. Total Bilirubin <0.2(L) 0.3 - 1.2 mg/dL [facility] 06/11/2024 3:00 AM EDT 06/13/2024 1:42 PM EDT Obed Aleman MD LAB BLOOD ORDERABLES Final Result Performing Organization Address [facility] de Phone Number [facility] [address] [place] [address] * (ABNORMAL) Lipid panel (06/11/2024 3:00 AM [...] Final Result Performing Organization Address [facility] de Phone Number [facility] [address] [place] [address] * (ABNORMAL) Electrolyte panel (06/11/2024 3:00 AM [...] Final Result Performing Organization Address [facility] de Phone Number [facility] [address] [place] [address] * Phosphorus (05/28/2024 3:00 AM EDT) Phosphorus, Serum 3.8 2.5 - 5.0 mg/dL [facility] 05/28/2024 3:00 AM EDT 05/29/2024 12:39 PM EDT us Obed Aleman MD LAB BLOOD ORDERABLES Final Result [facility] [address] [place] [address] from Last 3 Months Insurance [facility] Medicare [facility] Medicare Care Teams Php Software Engineer Relationship Specialty Start Date End Date Maximiliano Schmidt MD [address] [place] [phone] PCP - General Internal Medicine 07/29/23
--- OUTSIDE RECORDS SUMMARY | 2024-07-17 06:14 | XMS_ITS | Encounter Summary ---
Author Organization [facility] Address [address] [place] [address] Phone Care Team Providers Care Bankruptcy Manager Name Role Phone Maximiliano Schmidt MD Primary Care Provider [phone] Encounter Details Date Type Department Care Team (Late st Contact Info) Description 08/24/2020 Orders Only [facility] [address] [place] [address] Provider, MD Laura [address] [place] [phone] Social History Tobacco Use Types Packs/Day [...] on filedocumented in this encounter Care Teams Bankruptcy Manager Relationship Specialty Start Date End Date Maximiliano Schmidt MD [address] [place] [phone] PCP - General Internal Medicine 07/29/23 documented as of this encounter
--- OUTSIDE RECORDS SUMMARY | 2024-07-17 06:14 | XMS_ITS | Data Portability ---
Author Organization [place] [facility] Address [address] [place] [address] Care Team Providers Care Party Host/Hostess Name Role Phone HYUN FALCON Primary Care [...] , dipstick 2018 krissy Spr - Home, [address] [place] [address], [address], 9 09:54:29 culture, urine - Collected by [facility] 2018 MARQUISE [facility] (Centralized Electronic Ordering - All Locations), Patient Can Go To The Location Of Their Choice, [id number] 9 13:06:07 Referral None recorded. Procedures None recorded. Surgeries None recorded. Imaging None recorded. Medication Orders cephalexin 500 mg capsule 2018 019 nyuzych [facility], [address] [place], [address], 9 09:54:29 Keflex 500 mg capsule 2018 019 INTERFACE [facility], [address] [place], [address], 9 09:54:31 Patient TargetsNo targets recorded. Patient Instructions Encounter Date Encounter Id Patient Instructions Last Modified By Organization Details Last Modified Time 12/20/2018 [id number] URINARY TRACT INFECTION INSTRUCTIONS YOU HAVE A [...] condition between 8am-10pm, please call [facility] at [phone] to help navigate your care. krissy Not available 12/20/2018 09:54:27 Reason for Referral None Reported. Results Created Date Observation Date Name Description Value Unit Range Abnormal Flag Note LastModifiedBy Organization Detail LastModifiedTime 12/21/1912/20/2018 urina lysis , dipst ick Appearance cloudy Not Available Spr - [facility] [address] [place], [address], 12/20/2018 09:43:21 12/21/1912/20/2018 urina lysis , dipst ick Color yellow Not Available Spr - Home [address] [place], [address], 12/20/2018 09:43:21 12/21/1912/20/2018 urina lysis , dipst ick Glucose negati ve Not Available Spr - Home [address] [place], [address], 12/20/2018 09:43:21 12/21/19 19 12/20/2018 urina lysis , dipst ick Bilirubin negati ve Not Available Spr - Home [address] [place], [address], 12/20/2018 09:43:21 12/21/19 19 12/20/2018 urina lysis , dipst ick Ketones NEG Not Available Spr - Home [address] [place], [address], 12/20/2018 09:43:21 12/21/19 19 12/20/2018 urina lysis , dipst ick Sp. [place] 1.030 Not Available Spr - Home [address] [place], [address], 12/20/2018 09:43:21 12/21/19 19 12/20/2018 urina lysis , dipst ick Blood +++ Not Available Spr - Home [address] [place], [address], 12/20/2018 09:43:21 12/21/1912/20/2018 urina lysis , dipst ick pH 5.0 Not Available Spr - Home [address] [place], [address], 12/20/2018 09:43:21 12/21/1912/20/2018 urina lysis , dipst ick Protein positi ve Not Available Spr - Home [address] [place], [address], 12/20/2018 09:43:21 12/21/1912/20/2018 urina lysis , dipst ick Urobilirubin negati ve Not Available Spr - Home [address] [place], [address], 12/20/2018 09:43:21 12/21/1912/20/2018 urina lysis , dipst ick Nitrites +++ Not Available Spr - [facility] [address] [place], [address], 12/20/2018 09:43:21 12/21/1912/20/2018 urina lysis , dipst ick Leukocytes +++ Not Available Spr - H ome [address] [place], [address], 12/20/2018 09:43:21 12/21/19 19 12/20/2018 cultu re, urine specimen description URINE Not Available [facility] ([facility] - All Locations) Patient Can Go To The Location Of Their Choice, [id number] 12/22/2018 13:06:06 12/21/1912/20/2018 cultu re, urine special requests NONE Not Available [facility] ([facility] Ordering - All Locations) Patient Can Go To The Location Of Their Choice, [id number] 12/22/2018 13:06:06 12/21/1912/22/2018 cultu re, urine culture >100,0 00 COL/ML KLEBSI BAILEY PNEUMO NIAE abnormal Not Available [facility] (Centralized Electronic Ordering - All Locations) Patient Can Go To The Location Of Their Choice, [id number] 12/22/2018 13:06:06 12/21/1912/22/2018 cultu re, urine report status FINAL 2018 Not Available [facility] (Centralized Electronic Ordering - All Locations) Patient Can Go To The Location Of Their Choice, [id number] 12/22/2018 13:06:06 12/21/1912/22/2018 cultu re, urine organism [...] Go To The Location Of Their Choice, [id number] 12/22/2018 13:06:06 12/21/1912/22/2018 cultu re, urine piperacillin /tazobactam PIPERA CILLIN /TAZOB AC SUSCEP TIBLE susceptib le Not Available [facility] (Centralized Electronic Ordering - All Locations) Patient Can Go To The Location Of Their Choice, [id number] 12/22/2018 13:06:06 12/21/1912/22/2018 cultu re, urine trimeth/sulf amethox TRIMET H/SULF AMETHO X SUSCEP TIBLE susceptib le Not Available [facility] (Centralized Electronic Ordering - All Locations) Patient Can Go To The Location Of Their Choice, [address] 12/22/2018 13:06:06 12/21/1912/22/2018 cultu re, urine tetracycline TETRAC YCLINE SUSCEP TIBLE susceptib le Not Available [facility] (Centralized Electronic Ordering - All Locations) Patient Can Go To The Location Of Their Choice, [id number] 12/22/2018 13:06:06 Result Notes None recorded. Medical [...] [degF] 160 mm[Hg] 80 mm[Hg] Not Available [facility] 9 09:32:19 Social History Question Answer Notes LastModified by Organizat ion Details LastModified Time Tobacco Smoking Status Never Smoker LIDA CASAS [address] [place], [address], [place] [facility] 12/20/2018 09:34:50 Do You [...] SNOMED-CT Code Diagnosis ICD10 Code Diagnosis Note [id number] LIDA CASAS [facility] - HOME [address] [facility] [place] [address] 12/20/2018 09:28:30 12/22/2018 11:41:07 Urinary tract infectious disease 89543135 N39.0 Acute condition Increased frequency of urination 960247313 R35.0 Dysuria 99735374 R30.9 Diabetes mellitus 301841 09 E11.9 chronic condition Health Concerns Section Related Observation LastModified by Organization Detai ls LastModified Time None Recorded Concern Status LastModified by Organization Details LastModified Time None Recorded Advance Directives Directive N: Payers Insurance Date Sequence Insurance Name Policy Number Policy Vasquez Covered Member ID Vasquez Member ID Guarantor Name 12/20/2018 1 *SELF PAY* Hardeep Howard [id number] Hardeep Howard 12/20/2018 2 [facility] HEALTH[facility] OPTIONS (MEDICARE SUPPLEMENT) Hardeep Howard [id number] Hardeep Howard 12/22/2018 1 MEDICARE B-[place]: [facility] Hardeep Howard [id number] Hardeep Howard Notes Date Note Type Note [...] Diabetes, HTN, HLD, CKD LIDA CASAS [address], [place], [address], [place] [facility] 12/20/2018 10:34:52
--- OUTSIDE RECORDS SUMMARY | 2024-07-17 06:14 | XMS_ITS | Encounter Summary ---
Author Organization [facility] Address [address] [facility] [address] [place] [address] Phone Care Team Providers Care Ingredient Handler Name Role Phone Maximiliano Schmidt MD Primary Care Provider [phone] Encounter Details Date Type Department Care Team ([facility] st Contact Info) Description 09/09/2020 Orders Only [facility] [address] [facility] [address] [place] [phone] Jr Martinez MD [address] [facility] [address] [place] [address] Hyperkalemia Social History Tobacco Use Types Packs/Day [...] (8-23) MG/DL [facility] Creatinine 1.5(H) (0.7-1.2) MG/DL [facility] Sodium 141 (133-145) MMOL/L [facility] Potassium 4.5 (3.6-5.2) MMOL/L [facility] Chloride 104 (98-107) MMOL/L [facility] Bicarbonate (CO2) 21(L) (22-29) MMOL/L [facility] Anion Gap 16 (4-17) [facility] Calcium 9.3 (8.6-10.5) MG/DL [facility] Est GFR Non 47 ML/MIN/1.7 3 M2 [facility] Comment: Creatinine based estimated glomerular filtration rate (eGFR) is calculated using the Chronic Kidney Disease Epidemiology Collaboration (CKD-EPI). The CKD-EPI creatinine equation has not been validated in children (<18 years), women or in some racial or ethnic subgroups other than Caucasians and Americans. EST GFR 55 ML/MIN/1.7 3 M2 [facility] Comment: Creatinine based estimated glomerular filtration rate (eGFR) is calculated using the Chronic Kidney Disease Epidemiology Collaboration (CKD-EPI). The CKD-EPI creatinine equation has not been validated in children (<18 years), women or in some racial or ethnic subgroups other than Caucasians and Americans. Testing performed or reported by [facility], a Service of [facility] [place] [facility], [address] [place] [address] Renetta Grider MD, Firer Diesel Locom[employer] [facility]# [id number] Blood (Blood, Venous) 11/04/2020 8:40 AM EDT 11/04/2020 8:42 AM EDT Jr Martinez MD LAB BLOOD ORDERABLES Final Resul t [facility] documented in this encounter Visit Diagnoses Diagnosis Hyperkalemia documented in this encounter Care Teams Ingredient Handler Relationship Specialty Start Date End Date Maximiliano Schmidt MD [address] [place] [address] PCP - General Internal Medicine 07/29/23 documented as of this encounter
[2024-07-17 06:58] LABS: C Reactive Protein 7.75 mg/dL (< or = 0.50)
[2024-07-17 08:26] LABS: Erythrocyte Sedimentation Rate 72 MM/HR (0-15)
== END 2024-07-17 06:12 | disposition home or self-care (01) ==
LOC: HO.MMNH1L 06:11
PROVIDERS: Visit Provider Nurse Practitioner Family
DX: M62.521 Muscle wasting and atrophy, not elsewhere classified, right upper arm (principal); E11.40 Type 2 diabetes mellitus with diabetic neuropathy, unspecified; Z99.2 Dependence on renal dialysis
CPT/HCPCS: 36415; 85652; 86140

== ENCOUNTER 2024-07-20 06:33 | Outpatient (REF) | payer MEDICARE, SELFPAY | END 2024-07-20 06:34 | disposition home or self-care (01) | LOC: HO.MMNH1L 06:33 | PROVIDERS: Visit Provider Student in an Organized Health Care Education/Training Program | DX: Z13.89 Encounter for screening for other disorder (principal) ==

== ENCOUNTER 2024-07-27 05:40 | Outpatient (REF) | payer MEDICARE, SELFPAY ==
[2024-07-27 05:33] LABS: MANUAL DIFF FLAG NO
--- OUTSIDE RECORDS SUMMARY | 2024-07-27 05:47 | XMS_ITS | Encounter Summary ---
Author Organization [facility] Address [address] [place] [address] Phone Care Team Providers Care Shipwright Helper Name Role Phone Maximiliano Schmidt MD Primary Care Provider [phone] Encounter Details Date Type Department Care Team (Late st Contact Info) Description 08/24/2020 Orders Only [facility] [address] [place] [address] Provider, MD Laura [address] [place] [address] Social History Tobacco Use Types Packs/Day [...] on filedocumented in this encounter Care Teams Shipwright Helper Relationship Specialty Start Date End Date Maximiliano Schmidt MD [address] [place] [address] PCP - General Internal Medicine 07/29/23 documented as of this encounter
--- OUTSIDE RECORDS SUMMARY | 2024-07-27 05:47 | XMS_ITS | Encounter Summary ---
Author Organization [facility] Address [address] [facility] [address] [place] [address] Phone Care Team Providers Care Garage Laborer Name Role Phone Maximiliano Schmidt MD Primary Care Provider [phone] Encounter Details Date Type Department Care Team ([facility] st Contact Info) Description 09/09/2020 Orders Only [facility] [address] [facility] [address] [facility] [address] [place] [phone] Jr Martinez MD [address] [facility] [address] [place] [phone] Hyperkalemia Social History Tobacco Use Types Packs/Day [...] (8-23) MG/DL [facility] Creatinine 1.5(H) (0.7-1.2) MG/DL [facility] Sodium 141 (133-145) MMOL/L [facility] Potassium 4.5 (3.6-5.2) MMOL/L [facility] Chloride 104 (98-107) MMOL/L [facility] Bicarbonate (CO2) 21(L) (22-29) MMOL/L [facility] Anion Gap 16 (4-17) [facility] Calcium 9.3 (8.6-10.5) MG/DL [facility] Est GFR Non 47 ML/MIN/1.7 3 M2 [facility] Comment: Creatinine based estimated glomerular filtration rate (eGFR) is calculated using the Chronic Kidney Disease Epidemiology Collaboration (CKD-EPI). The CKD-EPI creatinine equation has not been validated in children (<18 years), women or in some racial or ethnic subgroups other than Caucasians and Americans. EST GFR 55 ML/MIN/1.7 3 M2 [facility] Comment: Creatinine based estimated glomerular filtration rate (eGFR) is calculated using the Chronic Kidney Disease Epidemiology Collaboration (CKD-EPI). The CKD-EPI creatinine equation has not been validated in children (<18 years), women or in some racial or ethnic subgroups other than Caucasians and Americans. Testing performed or reported by [facility], a Service of [facility], [address] [place] [address] Renetta Grider MD, Lap Machine Tender [facility]# [id number] Blood (Blood, Venous) 11/04/2020 8:40 AM EDT 11/04/2020 8:42 AM EDT Jr Martinez MD LAB BLOOD ORDERABLES Final Resul t [facility] documented in this encounter Visit Diagnoses Diagnosis Hyperkalemia documented in this encounter Care Teams Garage Laborer Relationship Specialty Start Date End Date Maximiliano Schmidt MD [address] [place] [address] PCP - General Internal Medicine 07/29/23 documented as of this encounter
--- OUTSIDE RECORDS SUMMARY | 2024-07-27 05:48 | XMS_ITS | Data Portability ---
Author Organization [place] [facility] Address [address] [place] [address] Care Team Providers Care Legal Arbitrator Name Role Phone HYUN FALCON Primary Care Provider [phone] Assessment Encounter Date Assessment Date Assessment LastModified [...] , dipstick 2018 krissy Spr - Home, [address] [place] [address], [address], 9 09:54:29 culture, urine - Collected by [facility] 2018 MARQUISE [facility] (Centralized Electronic Ordering - All Locations), Patient Can Go To The Location Of Their Choice, [address] 9 13:06:07 Referral None recorded. Procedures None recorded. Surgeries None recorded. Imaging None recorded. Medication Orders cephalexin 500 mg capsule 2018 019 nyuzych [facility], [address] [place], [address], 9 09:54:29 Keflex 500 mg capsule 2018 019 INTERFACE [facility], [address] [place], [address], 9 09:54:31 Patient TargetsNo targets recorded. Patient Instructions Encounter Date Encounter Id Patient Instructions Last Modified By Organization Details Last Modified Time 12/20/2018 [id number] URINARY TRACT INFECTION INSTRUCTIONS YOU HAVE A [...] condition between 8am-10pm, please call [facility] at [phone] to help navigate your care. krissy Not available 12/20/2018 09:54:27 Reason for Referral None Reported. Results Created Date Observation Date Name Description Value Unit Range Abnormal Flag Note LastModifiedBy Organization Detail LastModifiedTime 12/21/1912/20/2018 urina lysis , dipst ick Appearance cloudy Not Available Spr - [facility] [address] [place], [address], 12/20/2018 09:43:21 12/21/1912/20/2018 urina lysis , dipst ick Color yellow Not Available Spr - Home [address] [place], [address], 12/20/2018 09:43:21 12/21/1912/20/2018 urina lysis , dipst ick Glucose negati ve Not Available Spr - Home [address] [place], [address], 12/20/2018 09:43:21 12/21/19 19 12/20/2018 urina lysis , dipst ick Bilirubin negati ve Not Available Spr - Home [address] [place], [address], 12/20/2018 09:43:21 12/21/19 19 12/20/2018 urina lysis , dipst ick Ketones NEG Not Available Spr - Home [address] [place], [address], 12/20/2018 09:43:21 12/21/19 19 12/20/2018 urina lysis , dipst ick Sp. [place] 1.030 Not Available Spr - Home [address] [place], [address], 12/20/2018 09:43:21 12/21/19 19 12/20/2018 urina lysis , dipst ick Blood +++ Not Available Spr - Home [address] [place], [address], 12/20/2018 09:43:21 12/21/1912/20/2018 urina lysis , dipst ick pH 5.0 Not Available Spr - Home [address] [place], [address], 12/20/2018 09:43:21 12/21/1912/20/2018 urina lysis , dipst ick Protein positi ve Not Available Spr - Home [address] [place], [address], 12/20/2018 09:43:21 12/21/1912/20/2018 urina lysis , dipst ick Urobilirubin negati ve Not Available Spr - Home [address] [place], [address], 12/20/2018 09:43:21 12/21/1912/20/2018 urina lysis , dipst ick Nitrites +++ Not Available Spr - [facility]ont[facility] [address] [place], [address], 12/20/2018 09:43:21 12/21/1912/20/2018 urina lysis , dipst ick Leukocytes +++ Not Available Spr - H ome [address] [place], [address], 12/20/2018 09:43:21 12/21/19 19 12/20/2018 cultu re, urine specimen description URINE Not Available [facility] ([facility]ized Electronic Ordering - All Locations) Patient Can Go To The Location Of Their Choice, [id number] 12/22/2018 13:06:06 12/21/1912/20/2018 cultu re, urine special requests NONE Not Available [facility] (Centralized Electronic Ordering - All Locations) Patient Can Go To The Location Of Their Choice, [id number] 12/22/2018 13:06:06 12/21/1912/22/2018 cultu re, urine culture >100,0 00 COL/ML KLEBSI BAILEY PNEUMO NIAE abnormal Not Available [facility] (Centralized Electronic Ordering - All Locations) Patient Can Go To The Location Of Their Choice, [address] 12/22/2018 13:06:06 12/21/1912/22/2018 cultu re, urine report status FINAL 2018 Not Available [facility] (Centralized Electronic Ordering - All Locations) Patient Can Go To The Location Of Their Choice, [id number] 12/22/2018 13:06:06 12/21/1912/22/2018 cultu re, urine organism [...] Go To The Location Of Their Choice, [address] 12/22/2018 13:06:06 12/21/1912/22/2018 cultu re, urine piperacillin /tazobactam PIPERA CILLIN /TAZOB AC SUSCEP TIBLE susceptib le Not Available [facility] (Centralized Electronic Ordering - All Locations) Patient Can Go To The Location Of Their Choice, [id number] 12/22/2018 13:06:06 12/21/1912/22/2018 cultu re, urine trimeth/sulf amethox TRIMET H/SULF AMETHO X SUSCEP TIBLE susceptib le Not Available [facility] (Centralized Electronic Ordering - All Locations) Patient Can Go To The Location Of Their Choice, [id number] 12/22/2018 13:06:06 12/21/1912/22/2018 cultu re, urine tetracycline TETRAC YCLINE SUSCEP TIBLE susceptib le Not Available [facility] (Centralized Electronic Ordering - All Locations) Patient Can Go To The Location Of Their Choice, [address] 12/22/2018 13:06:06 Result Notes None recorded. Medical [...] [degF] 160 mm[Hg] 80 mm[Hg] Not Available [facility] 9 09:32:19 Social History Question Answer Notes LastModified by Organizat ion Details LastModified Time Tobacco Smoking Status Never Smoker LIDA CASAS [address] [place], [address], [place] [facility] 12/20/2018 09:34:50 Do You [...] Cholesterol Y Pulmonary Embolism N Cancer N Stroke N Hypertension Y Depression N COPD N Asthma N Kidney Disease Y Past Encounters Encounter ID Performer Location Encounter Start Date Encounter Closed Date Diagnosis/Indication Diagnosis SNOMED-CT Code Diagnosis ICD10 Code Diagnosis Note [id number] LIDA CASAS [facility] - HOME [address] [facility] [place] [address] 12/20/2018 09:28:30 12/22/2018 11:41:07 Urinary tract infectious disease 66462813 N39.0 Acute condition Increased frequency of urination 518619944 R35.0 Dysuria 76772306 R30.9 Diabetes mellitus 689745 09 E11.9 chronic condition Health Concerns Section Related Observation LastModified by Organization Detai ls LastModified Time None Recorded Concern Status LastModified by Organization Details LastModified Time None Recorded Advance Directives Directive N: Payers Insurance Date Sequence Insurance Name Policy Number Policy Vasquez Covered Member ID Vasquez Member ID Guarantor Name 12/20/2018 1 *SELF PAY* Hardeep Howard [id number] Hardeep Howard 12/20/2018 2 [facility] HEALTHCARE OPTIONS (MEDICARE SUPPLEMENT) Hardeep Howard [id number] Hardeep Howard 12/22/2018 1 [place]: [facility] GOVERNMENT SERVICES Hardeep Howard [id number] Hardeep Howard Notes Date Note Type Note [...] HLD, CKD LIDA CASAS [address], [place], [address], [place] [facility] 12/20/2018 10:34:52
--- OUTSIDE RECORDS SUMMARY | 2024-07-27 05:48 | XMS_ITS | Clinical Summary ---
Author Organization [facility] Address [address] [place] [phone] Phone Care Team Providers Care Host/Hostess Restaurant Name Role Phone Maximiliano Schmidt MD Primary Care Provider [phone] [phone] Allergies Active Allergy Reactions Criticality Noted Date [...] Dyslipidemia 02/04/2023 02/04/2023 Severe obesity 02/04/2023 02/04/2023 custodial current use of oral hypoglycemic drug 02/04/2023 02/04/2023 custodial current use of insulin 07/23/2022 02/04/2023 Deafness [...] Encounters Date Type Department Care Team Description 07/23/2024 Treatment [facility] [address] [phone] Obed Aleman MD End stage renal disease; Dependence on renal dialysis 07/16/2024 Treatment [facility] [address] [phone] Obed Aleman MD End stage renal disease; Dependence on renal dialysis 07/02/2024 Treatment [facility] [address] [address] Obed Aleman MD End stage renal disease; Dependence on renal dialysis 06/27/2024 [facility] [address] [address] Obed Aleman MD End stage renal disease; Dependence on renal dialysis 06/16/2024 Treatment [facility] [address] [address] Obed Aleman MD End stage renal disease; Dependence on renal dialysis 06/09/2024 Treatment [facility] [address] [phone] Obed Aleman MD End stage renal disease; Dependence on renal dialysis 06/04/2024 Treatment [facility] [address] [address] Obed Aleman MD End stage renal disease; Dependence on renal dialysis 05/28/2024 Treatment [facility] [address] [address] Obed Aleman MD End stage renal disease; Dependence on renal dialysis 05/19/2024 Treatment [facility] [address] [address] Obed Aleman MD End stage renal disease; Dependence on renal dialysis 05/14/2024 Orders Only [facility] [address] [address] Obed Aleman MD 05/12/2024 Treatment [facility] [address] [address] Obed Aleman MD End stage renal disease; Dependence on renal dialysis 05/07/2024 Treatment [facility] [address] [address] Obed Aleman MD 05/05/2024 Treatment [facility] [address] [address] Obed Aleman MD from Last 3 Months [...] 50+ Ye ars (2 of 2 - PPSV23, PCV20, or PCV21) 05/29/2022 04/03/2022, 12/11/2016 Diabetes: Hemoglobin A1C 09/10/2024 025, 02/01/2024, 11/17/2018 Influenza Vaccine (Season Ended) 2024 12/15/2021, 12/23/2020, 01/01/2019, Additional history exists Pneumococcal Vaccine: Peds ( 0 to 5 Years) and At-Risk Patients (6 to 49 Years) Discontinued 04/03/2022, 12/11/2016 Procedures Procedure Name Priority Date/Time Associated Diagnosis Comments [facility] () Routine 07/23/2024 3:00 AM EDT CO2, TOTAL Routine 07/23/2024 3:00 AM EDT TRANSFERRIN SATURATION Routine 3:00 AM EDT PROTEIN, TOTAL, SERUM Routine 07/16/2024 3:00 AM EDT ELECTROLYTE PANEL Routine 07/16/2024 3:0 0 AM EDT MAGNESIUM Routine 07/16/2024 3:00 AM EDT [facility] () Routine 07/16/2024 3:00 AM EDT LACTATE DEHYDROGENASE Routine 07/16/2024 3:00 AM EDT GLUCOSE, RANDOM Routine 07/16/2024 3:00 AM EDT CREATININE, SERUM Routine 07/16/2024 3:0 0 AM EDT BILIRUBIN, TOTAL Routine 07/16/2024 3:00 AM EDT BUN/CREATININE RATIO Routine 07/16/2024 3:00 AM EDT ALT Routine 07/16/2024 3:00 AM EDT AST Routine 07/16/2024 3:00 AM EDT CALCIUM PHOSPHORUS PRODUCT, ADJUSTED (HC) Routine 07/16/2024 3:00 AM EDT ALKALINE PHOSPHATASE Routine 07/16/2024 3:00 AM EDT HEPATITIS B SURFACE ANTIGEN W/REFL CONFIRM Routine 07/16/2024 3:00 AM EDT FERRITIN Routine 07/16/2024 3:00 AM EDT CBC AND DIFFERENTIAL Routine 07/16/2024 3:00 AM EDT KT/V NATURAL LOG, URR (HC) Routine 07/16/2024 3:00 AM EDT HEPATITIS B SURFACE ANTIGEN W/REFL CONFIRM Routine [...] from Last 3 Months Results * [facility] (07/23/2024 3:00 AM EDT) Only the most recent of5 resultswithin the time period is included. Lipemia Normal Normal [facility] Icterus Normal Normal [facility] Hemolysis Normal Normal [facility] 07/23/2024 3:00 AM EDT 07/24/2024 1:15 PM EDT us Obed Aleman MD LAB HISTORICA [id number] RESULTS Final Result Performing Organization Address [facility] Co de Phone Number [facility] [address] [place] [address] * (ABNORMAL) CO2 (07/23/2024 3:00 AM EDT) Bicarbonate (CO2) 19(L) 21 - 31 mEq/L [facility] 07/23/2024 3:00 AM EDT 07/24/2024 1:15 PM EDT us Obed Aleman MD LAB BLOOD ORDERABLES Final Result Performing Organization Address [facility] Co de Phone Number [facility] [address] [place] [address] * (ABNORMAL) Kt/V Natural Log, URR (07/16/2024 3:00 AM EDT) Only the most recent of3 resultswithin the time period is included. Treatment Time 235 min [facility] Pre-Weight, lb 86.8 kg [facility] Post-Weight, lb 84.5 kg [facility] Ultrafiltration Rate 7 <=13 mL/kg/hr [facility] Comment: Recommend achieving Ultrafiltration Rate (UFR) <=10 mL/kg/hr References: Antione TOPETE et al. Kidney Int. 2010; 79(2):250-257 BUN Post Dialysis 11 7 - 25 mg/dL [facility] BUN 46(H) 7 - 25 mg/dL [facility] UREA REDUCTION RATIO (%) 76 >=65 % [facility] Kt/V Natural Log 1.66 >=1.2 [facility] 07/16/2024 3:00 AM EDT 07/17/2024 5:18 PM EDT Obed Aleman MD LAB HISTORICA [id number] RESULTS Final Result Performing Organization Address City/[facility]/ZIP Co de Phone Number [facility] [address] [place] [address] * (ABNORMAL) Calcium Phosphorus Product, Adjusted (07/16/2024 3:00 AM EDT) Only the most recent of3 resultswithin the time period is included. Albumin 3.6 3.6 - 5.4 g/dL [facility] Calcium 9.5 8.6 - 10.3 mg/dL [facility] Phosphorus, Serum 5.1(H) 2.5 - 5.0 mg/dL [facility] Ca*PO4 48.4 <55.0 mg2/dL2 [facility] Calcium, Adjusted Total 9.8 8.6 - 10.3 mg/dL [facility] CA*PO4 CORRCTD 50.0 <55.0 mg2/dL2 [facility] 07/16/2024 3:00 AM EDT 07/17/2024 5:20 PM EDT Obed Aleman MD LAB HISTORICA [id number] RESULTS Final Result Performing Organization Address [facility] Co de Phone Number [facility] [address] [place] [address] * Hepatitis B Surface Ag w/Reflex Confirmation (07/16/2024 3:00 AM EDT) Only the most recent of2 resultswithin the time period is included. Hep B Surface Antigen Negative Negative [facility] 07/16/2024 3:00 AM EDT 07/17/2024 5:20 PM EDT us Obed Aleman MD LAB BLOOD ORDERABLES Final Result Performing Organization Address [facility] de Phone Number [facility] [address] [place] [address] * BUN/CREATININE RATIO (07/16/2024 3:00 AM EDT) BUN/Creatinine Ratio 8.9 <=23.0 [facility] 07/16/2024 3:00 AM EDT 07/17/2024 5:20 PM EDT us Obed Aleman MD LAB HISTORICA [id number] RESULTS Final Result Performing Organization Address [facility] de Phone Number [facility] [address] [place] [address] * (ABNORMAL) TSAT (07/16/2024 3:00 AM EDT) Only the most recent of3 resultswithin the time period is included. Iron 43(L) 65 - 175 ug/dL [facility] Transferrin 133(L) 215 - 365 mg/dL [facility] TIBC 186(L) 211 - 406 ug/dL [facility] Iron Saturation (TSat) 23 22 - 52 % [facility] 07/16/2024 3:00 AM EDT 07/17/2024 5:20 PM EDT us Obed Aleman MD LAB BLOOD ORDERABLES Final Result Performing Organization Address [facility] de Phone Number [facility] [address] [place] [address] * (ABNORMAL) CBC and Differential (07/16/2024 3:00 AM EDT) Only the most recent of3 resultswithin the time period is included. White Blood Cells 9.7(H) 4.2 - 9.1 K/uL [facility] RBC 4.07(L) 4.63 - 6.08 M/uL [facility] Hgb 12.5(L) 13.7 - 17.5 g/dL [facility] Hemoglobin x 3 37.5(L) 41.1 - 52.5 g/dL [facility] Hematocrit 40.4 40.1 - 51.0 % [facility] MCV 99.3(H) 79.0 - 92.2 fL [facility] MCH 30.7 25.7 - 32.2 pg [facility] MCHC 30.9(L) 32.3 - 36.5 g/dL [facility] RDW 15.9(H) 11.6 - 14.4 % [facility] Platelets 218 163 - 337 K/uL [facility] Neutrophils Relative 73.8(H) 34.0 - 67.9 % [facility] Lymphocytes Relative 13.1(L) 21.8 - 53.1 % [facility] Monocytes 8.2 5.3 - 12.2 % [facility] Eosinophils Relative 3.1 0.8 - 7.0 % [facility] Basophils Relative 0.6 0.2 - 1.2 % [facility] Immature Granulocytes 1.2(H) 0.0 - 1.0 % [facility] DIFFERENTIAL MANUAL, 2 Not Indicated [facility] 07/16/2024 3:00 AM EDT 07/17/2024 5:15 PM EDT Obed Aleman MD LAB BLOOD ORDERABLES Final Result Performing Organization Address [facility] Co de Phone Number [facility] [address] [place] [address] * ALT (07/16/2024 3:00 AM EDT) Only the most recent of3 resultswithin the time period is included. ALT (SGPT) 13 10 - 49 U/L [facility] 07/16/2024 3:00 AM EDT 07/17/2024 5:20 PM EDT Obed Aleman MD LAB BLOOD ORDERABLES Final Result Performing Organization Address [facility] de Phone Number [facility] [address] [place] [address] * AST (07/16/2024 3:00 AM EDT) Only the most recent of3 resultswithin the time period is included. AST (SGOT) 14 <34 U/L [facility] 07/16/2024 3:00 AM EDT 07/17/2024 5:20 PM EDT Obed Aleman MD LAB BLOOD ORDERABLES Final Result Performing Organization Address [facility] Co de Phone Number [facility] [address] [place] [address] * Protein, total (07/16/2024 3:00 AM EDT) Only the most recent of3 resultswithin the time period is included. Total Protein 7.1 6.4 - 8.9 g/dL [facility] 07/16/2024 3:00 AM EDT 07/17/2024 5:20 PM EDT Obed Aleman MD LAB BLOOD ORDERABLES Final Result Performing Organization Address [facility] de Phone Number [facility] [address] [place] [address] * Alkaline phosphatase (07/16/2024 3:00 AM EDT) Only the most recent of3 resultswithin the time period is included. Alkaline Phosphatase 98 46 - 116 U/L [facility] 07/16/2024 3:00 AM EDT 07/17/2024 5:20 PM EDT Obed Aleman MD LAB BLOOD ORDERABLES Final Result Performing Organization Address [facility] de Phone Number [facility] [address] [place] [address] * (ABNORMAL) Magnesium (07/16/2024 3:00 AM EDT) Only the most recent of3 resultswithin the time period is included. Magnesium 1.8(L) 1.9 - 2.7 mg/dL [facility] 07/16/2024 3:00 AM EDT 07/17/2024 5:20 PM EDT us Obed Aleman MD LAB BLOOD ORDERABLES Final Result Performing Organization Address [facility] Co de Phone Number [facility] [address] [place] [address] * Lactate dehydrogenase (07/16/2024 3:00 AM EDT) Only the most recent of3 resultswithin the time period is included. LDH 188 120 - 246 U/L [facility] 07/16/2024 3:00 AM EDT 07/17/2024 5:20 PM EDT us Obed Aleman MD LAB BLOOD ORDERABLES Final Result Performing Organization Address [facility] de Phone Number [facility] [address] [place] [address] * (ABNORMAL) Glucose, random (07/16/2024 3:00 AM EDT) Only the most recent of3 resultswithin the time period is included. Glucose 201(H) 70 - 99 mg/dL [facility] Comment: ADA guidelines outline the following fasting glucose ranges: Normal: ? <100 Prediabetes: 100-125 Diabetes: ? >125 07/16/2024 3:00 AM EDT 07/17/2024 5:20 PM EDT Obed Aleman MD LAB BLOOD ORDERABLES Final Result Performing Organization Address [facility] de Phone Number [facility] [address] [place] [address] * (ABNORMAL) Ferritin (07/16/2024 3:00 AM EDT) Only the most recent of3 resultswithin the time period is included. Ferritin 1,258(H) 22 - 322 ng/mL [facility] 07/16/2024 3:00 AM EDT 07/17/2024 5:20 PM EDT us Obed Aleman MD LAB BLOOD ORDERABLES Final Result Performing Organization Address [facility] Co de Phone Number [facility] [address] [place] [address] * (ABNORMAL) Creatinine, serum (07/16/2024 3:00 AM EDT) Only the most recent of3 resultswithin the time period is included. Creatinine 5.16(H) 0.70 - 1.30 mg/dL [facility] 07/16/2024 3:00 AM EDT 07/17/2024 5:20 PM EDT Obed Aleman MD LAB BLOOD ORDERABLES Final Result Performing Organization Address [facility] de Phone Number [facility] [address] [place] [address] * Bilirubin, total (07/16/2024 3:00 AM EDT) Only the most recent of3 resultswithin the time period is included. Total Bilirubin 0.3 0.3 - 1.2 mg/dL [facility] 07/16/2024 3:00 AM EDT 07/17/2024 5:20 PM EDT Obed Aleman MD LAB BLOOD ORDERABLES Final Result Performing Organization Address [facility] de Phone Number [facility] [address] [place] [address] * (ABNORMAL) Electrolyte panel (07/16/2024 3:00 AM EDT) Only the most recent of3 resultswithin the time period is included. Sodium 134(L) 136 - 145 mEq/L [facility] Potassium 4.7 3.4 - 5.0 mEq/L [facility] Chloride 100 98 - 107 mEq/L [facility] Bicarbonate (CO2) 21 21 - 31 mEq/L [facility] Anion Gap 13 3 - 14 mEq/L [facility] 07/16/2024 3:00 AM EDT 07/17/2024 5:20 PM EDT us Obed Aleman MD LAB BLOOD ORDERABLES Final Result Performing Organization Address City/[facility]/ZIP Co de Phone Number [facility] [address] [place] [address] * (ABNORMAL) Hemoglobin (07/02/2024 3:00 AM EDT) Only the most recent of3 resultswithin the time period is included. Hgb 11.1(L) 13.7 - 17.5 g/dL [facility] Hemoglobin x 3 33.3(L) 41.1 - 52.5 g/dL [facility] 07/02/2024 3:00 AM EDT 07/03/2024 12:36 PM EDT us Obed Aleman MD LAB BLOOD ORDERABLES Final Result Performing Organization Address [facility] Co de Phone Number [facility] [address] [place] [address] * Collection Date (06/27/2024 3:00 AM EDT) Collection Date See Comment [facility] Comment: Patient sample received may exceed specimen stability, based on the collection date electronically provided. ??When reviewing patient results, verify collection information and consider specimen stability before acting on any critical or panic results. 06/27/2024 3:00 AM EDT Obed Aleman MD LAB HISTORICA [id number] RESULTS Final Result Performing Organization Address [facility] Co de Phone Number [facility] [address] [place] [address] * (ABNORMAL) PTH, Intact (06/11/2024 3:00 AM EDT) PTH, Intact 23(L) 160 - 721 pg/mL [facility] Comment: Suggested (KDIGO) ESRD maintenance range is two to nine times the upper normal limit (80.1 pg/mL) for the laboratory. 06/11/2024 3:00 AM EDT 06/13/2024 1:42 PM EDT Obed Aleman MD LAB BLOOD ORDERABLES Final Result Performing Organization Address [facility] de Phone Number [facility] [address] [place] [address] * (ABNORMAL) Hemoglobin A1c (06/11/2024 3:00 AM [...] Result Performing Organization Address [facility] de Phone Number [facility] [address] [place] [address] * (ABNORMAL) Lipid panel (06/11/2024 3:00 AM [...] Result Performing Organization Address [facility] de Phone Number [facility] [address] [place] [address] * Phosphorus (05/28/2024 3:00 AM EDT) Phosphorus, Serum 3.8 2.5 - 5.0 mg/dL [facility] 05/28/2024 3:00 AM EDT 05/29/2024 12:39 PM EDT Obed Aleman MD LAB BLOOD ORDERABLES Final Result Performing Organization Address [facility] de Phone Number [facility] [address] [place] [address] from Last 3 Months Insurance [facility] [id number] Medicare [facility] [facility] [id number] Medicare Medicaid [place] Care Teams Host/Hostess Restaurant Relationship Specialty Start Date End Date Maximiliano Schmidt MD [address] [place] [phone] PCP - General Internal Medicine 07/29/23
--- OUTSIDE RECORDS SUMMARY | 2024-07-27 05:48 | XMS_ITS | Encounter Summary ---
Author Organization [facility]. Address [address] [address] Phone Care Team Providers Care Rigging Helper Name Role Phone Maximiliano Schmidt MD Primary Care Provider [phone] [phone] Encounter Details Date Type Department Care Team (Late st Contact Info) Description 07/23/2024 Treatment [facility]. [address] [phone] Marco A Sanchez MD [address] [phone] End stage renal disease; Dependence [...] Note - Marco A Sanchez MD - 07/23/2024 12:00 AM EDT BASIC NOTE Patient: Hardeep Howard : 1950 Note Author: MARCO A SANCHEZ MD Service Date: 07/23/2024 This patient was personally seen for a basic visit as part of routine monthly dialysis care for end stage renal disease. Attending Senior Power Scheduler: MARCO A SANCHEZ MD Dialysis Location: [facility] Schedule: Shift: 1 OVERVIEW Patient is stable. ADEQUACY ASSESSMENT Kt/V, Natural Log 1.66 (07/16/24) 1.69 (06/11/24) 1.50 (05/14/24) UREA REDUCTION RATIO (%) 76 (07/16/24) 77 (06/11/24) 73 (05/14/24) BUN 46 (07/16/24) 47 (06/11/24) 37 (05/14/24) BUN Post Dialysis 11 (07/16/24) 11 (06/11/24) 10 (05/14/24) Creatinine 5.16 (07/16/24) 5.30 (06/11/24) 3.70 (05/14/24) Bicarbonate (CO2) 21 (07/16/24) 20 (06/11/24) 24 (05/14/24) Sodium 134 (07/16/24) 129 (06/11/24) 134 (05/14/24) ANEMIA ASSESSMENT Hgb 12.5 (07/16/24) 11.1 (07/02/24) 10.6 (06/27/24) Iron Saturation (TSat) 23 (07/16/24) 25 (06/11/24) 24 (05/14/24) Ferritin 1,258 (07/16/24) 1,936 (06/11/24) 2,149 (05/14/24) Iron 43 (07/16/24) 45 (06/11/24) 35 (05/14/24) TIBC 186 (07/16/24) 179 (06/11/24) 144 (05/14/24) MCV 99.3 (07/16/24) 99.1 (06/11/24) 94.4 (05/14/24) Platelets 218 (07/16/24) 226 (06/11/24) 339 (05/14/24) BMM ASSESSMENT Calcium, Adjusted Total 9.8 07/16/24 9.7 06/11/24 10.1 05/14/24 Calcium 9.5 07/16/24 9.4 06/11/24 9.5 05/14/24 Phosphorus, Serum 5.1 07/16/24 4.8 06/11/24 3.8 05/28/24 Phosphorus 3.6 09/17/23 3.6 09/17/23 Ca*PO4 48.4 07/16/24 45.1 06/11/24 28.5 05/14/24 PTH, Intact 23 06/11/24 140 02/01/24 PTH 101 09/17/23 Vitamin D, 25-Hydroxy 20 02/01/24 Vitamin D, 25-OH, Total 27.6 09/17/23 Magnesium 1.8 07/16/24 1.8 06/11/24 1.8 05/14/24 Alkaline Phosphatase 98 07/16/24 106 06/11/24 96 05/14/24 Aluminum 9 02/01/24 NUTRITION ASSESSMENT Albumin 3.6 07/16/24 3.6 06/11/24 3.3 05/14/24 Potassium 4.7 07/16/24 4.7 06/11/24 4.5 05/14/24 Hemoglobin A1C 6.1 06/11/24 5.2 02/01/24 ADDITIONAL LABS White Blood Cells 9.7 (07/16/24) 9.1 (06/11/24) 9.8 (05/14/24) Cholesterol 109 (06/11/24) 83 (02/01/24) HDL 36 (06/11/24) 33 (02/01/24) LDL-Calc 26 (06/11/24) 6 (02/01/24) Triglycerides 237 (06/11/24) 219 (02/01/24) Hep B Surface Antibody <4 (02/01/24) Uric Acid 7.6 (02/01/24) 8.0 (09/17/23) Signed by: MARCO A SANCHEZ MD on 07/23/2024 at 10:08:49 PM Transcribed by: MARCO A SANCHEZ MD on 07/23/2024 at 10:08:49 PM documented in this encounter Plan of Treatment Not on file documented as of this encounter Visit Diagnoses Diagnosis End stage renal disease Dependence on renal dialysis documented in this encounter Care Teams Rigging Helper Relationship Specialty Start Date End Date Maximiliano Schmidt MD [address] [place] [phone] PCP - General Internal Medicine 07/29/23 documented as of this encounter
[2024-07-27 06:21] LABS: Basophils Absolute Auto 0.1 X10*3/uL (0.0-0.2); Basophils Percent Auto 0.5 % (0-2); Eosinophils Absolute Auto 0.2 X10*3/uL (0.0-0.4); Eosinophils Percent Auto 2.1 % (0-4); Hematocrit 41.6 % (42.0-52.0); Hemoglobin 13.2 g/dl (14.0-18.0); Imm Gran Abs Auto 0.07 X10*3/uL (0.00-0.03); Imm Gran Pct Auto 0.6 % (0.0-0.4); Lymphocytes Absolute Auto 1.8 X10*3/uL (1.2-4.9); Lymphocytes Percent Auto 15.3 % (20-40); Mean Corpuscular HGB Conc 31.7 g/dl (31.0-36.0); Mean Corpuscular Hemoglobin 30.8 pg (27.0-33.0); Mean Corpuscular Volume 97.2 fL (80.0-98.0); Mean Platelet Volume 9.8 fL (9.4-12.4); Monocytes Percent Auto 8.2 % (2-11); Neutrophils Absolute Auto 8.5 x10*3/uL (2.0-8.3); Neutrophils Percent Auto 73.3 % (45-73); Platelet Count 191 X10*3/uL (160-400); Red Blood Count 4.28 X10*6/uL (4.60-5.80); Red Cell Distribution Width 15.2 % (11.0-16.0); White Blood Count 11.5 X10*3/uL (4.8-10.8)
[2024-07-27 06:55] LABS: Alanine Aminotransferase 10 U/L (0-40); Albumin Level 3.4 g/dL (3.5-5.0); Alkaline Phosphatase 144 U/L (39-117); Anion Gap 19 (12-20); Aspartate Amino Transferase 18 U/L (5-37); Bilirubin Total 0.2 mg/dL (0.0-1.0); Blood Urea Nitrogen 68 mg/dL (9-16); Calcium 9.8 mg/dL (8.4-10.2); Carbon Dioxide 21 mmol/L (22-29); Chloride 98 mmol/L (96-108); Glucose Random 244 mg/dL (60-115); Magnesium 1.5 mg/dL (1.6-2.6); Potassium 5.2 mmol/L (3.3-5.1); Sodium 133 mmol/L (135-145); Total Protein 7.3 g/dL (6.5-8.0)
[2024-07-27 07:38] LABS: Estimated Glomerular Filt Rate 8
== END 2024-07-27 05:41 | disposition home or self-care (01) ==
LOC: HO.MMNH1L 05:40
PROVIDERS: Visit Provider Student in an Organized Health Care Education/Training Program
DX: E11.9 Type 2 diabetes mellitus without complications (principal); I10 Essential (primary) hypertension
CPT/HCPCS: 36415; 80053; 83735; 85025

== ENCOUNTER 2024-07-29 14:40 | Outpatient (REF) | payer MEDICARE, SELFPAY ==
--- OUTSIDE RECORDS SUMMARY | 2024-07-29 14:48 | XMS_ITS | Encounter Summary ---
Author Organization [facility] Address [address] [place] [address] Phone Care Team Providers Care Mold Washer Name Role Phone Maximiliano Schmidt MD Primary Care Provider [phone] [phone] Encounter Details Date Type Department Care Team (Late st Contact Info) Description 08/24/2020 Orders Only [facility] [address] [place] [address] Provider, MD Laura [address] [place] [id number] Social History Tobacco Use Types Packs/Day [...] on filedocumented in this encounter Care Teams Mold Washer Relationship Specialty Start Date End Date Maximiliano Schmidt MD [address] [place] [phone] PCP - General Internal Medicine 07/29/23 documented as of this encounter
--- OUTSIDE RECORDS SUMMARY | 2024-07-29 14:48 | XMS_ITS | Encounter Summary ---
Author Organization [facility] Address [address] [facility] [address] [place] [address] Phone Care Team Providers Care Gas Fitter Apprentice Name Role Phone Maximiliano Schmidt MD Primary Care Provider [phone] [phone] Encounter Details Date Type Department Care Team ([facility] st Contact Info) Description 09/09/2020 Orders Only [facility] [address] [facility] [address] [place] [phone] Jr Martinez MD [address] [facility] [address] [place] [phone] Hyperkalemia Social History Tobacco Use Types Packs/Day [...] (8-23) MG/DL [facility] Creatinine 1.5(H) (0.7-1.2) MG/DL [facility] Sodium 141 (133-145) MMOL/L [facility] Potassium 4.5 (3.6-5.2) MMOL/L [facility] Chloride 104 (98-107) MMOL/L [facility] Bicarbonate (CO2) 21(L) (22-29) MMOL/L [facility] Anion Gap 16 (4-17) [facility] Calcium 9.3 (8.6-10.5) MG/DL [facility] Est GFR Non 47 ML/MIN/1.7 3 M2 [facility] Comment: Creatinine based estimated glomerular filtration rate (eGFR) is calculated using the Chronic Kidney Disease Epidemiology Collaboration (CKD-EPI). The CKD-EPI creatinine equation has not been validated in children (<18 years), women or in some racial or ethnic subgroups other than Caucasians and Americans. EST GFR 55 ML/MIN/1.7 3 M2 [facility] Comment: Creatinine based estimated glomerular filtration rate (eGFR) is calculated using the Chronic Kidney Disease Epidemiology Collaboration (CKD-EPI). The CKD-EPI creatinine equation has not been validated in children (<18 years), women or in some racial or ethnic subgroups other than Caucasians and Americans. Testing performed or reported by [facility], a Service of [facility], [address] [place] [address] Renetta Grider MD, Oil Rag Washer [facility]# [id number] Blood specimen (specimen) Venous blood / Unknown 11/04/2020 8:40 AM EDT 11/04/2020 8:42 AM EDT Jr Martinez MD LAB BLOOD ORDERABLES Final Resul t [facility] documented in this encounter Visit Diagnoses Diagnosis Hyperkalemia documented in this encounter Care Teams Gas Fitter Apprentice Relationship Specialty Start Date End Date Maximiliano Schmidt MD [address] [place] [phone] PCP - General Internal Medicine 07/29/23 documented as of this encounter
--- OUTSIDE RECORDS SUMMARY | 2024-07-29 14:49 | XMS_ITS | Encounter Summary ---
Author Organization [facility]. Address [address] [address] Phone Care Team Providers Care Weight Trainer Name Role Phone Maximiliano Schmidt MD Primary Care Provider +1 [phone] Encounter Details Date Type Department Care Team (Late st Contact Info) Description 07/23/2024 Treatment [facility]. [address] [address] Marco A Sanchez MD [address] [phone] End stage renal disease; Dependence [...] care for end stage renal disease. Attending Directional Driller: MARCO A SANCHEZ MD Dialysis Location: [facility] Schedule: Shift: 1 OVERVIEW Patient [...] dialysis documented in this encounter Care Teams Weight Trainer Relationship Specialty Start Date End Date Maximiliano Schmidt MD [address] [place] [phone] PCP - General Internal Medicine 07/29/23 documented as of this encounter
--- OUTSIDE RECORDS SUMMARY | 2024-07-29 14:49 | XMS_ITS | Clinical Summary ---
Author Organization [facility] Address [address] [place] [phone] Phone Care Team Providers Care City Bus Driver Name Role Phone Maximiliano Schmidt MD Primary Care Provider [phone] [phone] Allergies Active Allergy Reactions Criticality Noted Date [...] Dyslipidemia 02/04/2023 02/04/2023 Severe obesity 02/04/2023 02/04/2023 nursing home current use of oral hypoglycemic drug 02/04/2023 02/04/2023 nursing home current use of insulin 07/23/2022 02/04/2023 Deafness [...] 07/23/2024 Treatment [facility] [address] [phone] Obed Aleman MD End stage renal disease; Dependence on renal dialysis 07/16/2024 Treatment [facility] [address] [phone] Obed Aleman MD End stage renal disease; Dependence on renal dialysis 07/02/2024 Treatment [facility] [address] [address] Obed Aleman MD End stage renal disease; Dependence on renal dialysis 06/27/2024 Treatment [facility] [address] [address] Obed Aleman MD End stage renal disease; Dependence on renal dialysis 06/16/2024 Treatment [facility] [address] [address] Obed Aleman MD End stage renal disease; Dependence on renal dialysis 06/09/2024 Treatment [facility] [address] [phone] Obed Aleman MD End stage renal disease; Dependence on renal dialysis 06/04/2024 Treatment [facility] [address] [address] Obed Aleman MD End stage renal disease; Dependence on renal dialysis 05/28/2024 Treatment [facility] [address] [address] Obed Aleman MD End stage renal disease; Dependence on renal dialysis 05/19/2024 Treatment [facility] [address] [address] Obed Aleman MD End stage renal disease; Dependence on renal dialysis 05/14/2024 Orders Only [facility] [address] [address] Obed Aleman MD 05/12/2024 Treatment [facility] [address] [address] Obed Aleman MD End stage renal disease; Dependence on renal dialysis 05/07/2024 [facility] [address] [address] Obed Aleman MD 05/05/2024 Treatment [facility] [address] [address] Obed Aleman MD from Last 3 Months [...] Procedure Name Priority Date/Time Associated Diagnosis Comments [facility] () Routine 07/23/2024 3:00 AM EDT CO2, TOTAL Routine 07/23/2024 3:00 AM EDT TRANSFERRIN SATURATION Routine 3:00 AM EDT PROTEIN, TOTAL, SERUM Routine 07/16/2024 3:00 AM EDT ELECTROLYTE PANEL Routine 07/16/2024 3:0 0 AM EDT MAGNESIUM Routine 07/16/2024 3:00 AM EDT [facility] () Routine 07/16/2024 3:00 AM EDT LACTATE [...] EDT us Obed Aleman MD LAB HISTORICA [id number] RESULTS Final Result Performing Organization Address [facility] Co de Phone Number [facility] [address] [place] [address] * (ABNORMAL) CO2 (07/23/2024 3:00 AM EDT) Bicarbonate (CO2) 19(L) 21 - 31 mEq/L [facility] 07/23/2024 3:00 AM EDT 07/24/2024 1:15 PM EDT us Obed Aleman MD LAB BLOOD ORDERABLES Final Result Performing Organization Address [facility] Co de Phone Number [facility] [address] [place] [address] * (ABNORMAL) Kt/V Natural Log, URR (07/16/2024 [...] PM EDT Obed Aleman MD LAB HISTORICA [id number] RESULTS Final Result Performing Organization Address City/[facility]/ZIP Co de Phone Number [facility] [address] [place] [address] * (ABNORMAL) Calcium Phosphorus Product, Adjusted (07/16/2024 [...] PM EDT Obed Aleman MD LAB HISTORICA [id number] RESULTS Final Result Performing Organization Address [facility] Co de Phone Number [facility] [address] [place] [address] * Hepatitis B Surface Ag w/Reflex Confirmation (07/16/2024 3:00 AM EDT) Only the most recent of2 resultswithin the time period is included. Hep B Surface Antigen Negative Negative [facility] 07/16/2024 3:00 AM EDT 07/17/2024 5:20 PM EDT us Obed Aleman MD LAB BLOOD ORDERABLES Final Result Performing Organization Address [facility] de Phone Number [facility] [address] [place] [address] * BUN/CREATININE RATIO (07/16/2024 3:00 AM EDT) BUN/Creatinine Ratio 8.9 <=23.0 [facility] 07/16/2024 3:00 AM EDT 07/17/2024 5:20 PM EDT us Obed Aleman MD LAB HISTORICA [id number] RESULTS Final Result Performing Organization Address [facility] de Phone Number [facility] [address] [place] [address] * (ABNORMAL) TSAT (07/16/2024 3:00 AM EDT) [...] BLOOD ORDERABLES Final Result Performing Organization Address [facility] de Phone Number [facility] [address] [place] [address] * (ABNORMAL) CBC and Differential (07/16/2024 3:00 [...] BLOOD ORDERABLES Final Result Performing Organization Address [facility] Co de Phone Number [facility] [address] [place] [address] * ALT (07/16/2024 3:00 AM EDT) Only the most recent of3 resultswithin the time period is included. ALT (SGPT) 13 10 - 49 U/L [facility] 07/16/2024 3:00 AM EDT 07/17/2024 5:20 PM EDT Obed Aleman MD LAB BLOOD ORDERABLES Final Result Performing Organization Address [facility] de Phone Number [facility] [address] [place] [address] * AST (07/16/2024 3:00 AM EDT) Only the most recent of3 resultswithin the time period is included. AST (SGOT) 14 <34 U/L [facility] 07/16/2024 3:00 AM EDT 07/17/2024 5:20 PM EDT Obed Aleman MD LAB BLOOD ORDERABLES Final Result Performing Organization Address [facility] Co de Phone Number [facility] [address] [place] [address] * Protein, total (07/16/2024 3:00 AM EDT) Only the most recent of3 resultswithin the time period is included. Total Protein 7.1 6.4 - 8.9 g/dL [facility] 07/16/2024 3:00 AM EDT 07/17/2024 5:20 PM EDT Obed Aleman MD LAB BLOOD ORDERABLES Final Result Performing Organization Address [facility] de Phone Number [facility] [address] [place] [address] * Alkaline phosphatase (07/16/2024 3:00 AM EDT) Only the most recent of3 resultswithin the time period is included. Alkaline Phosphatase 98 46 - 116 U/L [facility] 07/16/2024 3:00 AM EDT 07/17/2024 5:20 PM EDT Obed Aleman MD LAB BLOOD ORDERABLES Final Result Performing Organization Address [facility] de Phone Number [facility] [address] [place] [address] * (ABNORMAL) Magnesium (07/16/2024 3:00 AM EDT) Only the most recent of3 resultswithin the time period is included. Magnesium 1.8(L) 1.9 - 2.7 mg/dL [facility] 07/16/2024 3:00 AM EDT 07/17/2024 5:20 PM EDT us Obed Aleman MD LAB BLOOD ORDERABLES Final Result Performing Organization Address [facility] Co de Phone Number [facility] [address] [place] [address] * Lactate dehydrogenase (07/16/2024 3:00 AM EDT) Only the most recent of3 resultswithin the time period is included. LDH 188 120 - 246 U/L [facility] 07/16/2024 3:00 AM EDT 07/17/2024 5:20 PM EDT us Obed Aleman MD LAB BLOOD ORDERABLES Final Result Performing Organization Address [facility] de Phone Number [facility] [address] [place] [address] * (ABNORMAL) Glucose, random (07/16/2024 3:00 AM EDT) Only the most recent of3 resultswithin the time period is included. Glucose 201(H) 70 - 99 mg/dL [facility] Comment: ADA guidelines outline the following fasting glucose ranges: Normal: ? <100 Prediabetes: 100-125 Diabetes: ? >125 07/16/2024 3:00 AM EDT 07/17/2024 5:20 PM EDT Obed Aleman MD LAB BLOOD ORDERABLES Final Result Performing Organization Address [facility] de Phone Number [facility] [address] [place] [address] * (ABNORMAL) Ferritin (07/16/2024 3:00 AM EDT) Only the most recent of3 resultswithin the time period is included. Ferritin 1,258(H) 22 - 322 ng/mL [facility] 07/16/2024 3:00 AM EDT 07/17/2024 5:20 PM EDT us Obed Aleman MD LAB BLOOD ORDERABLES Final Result Performing Organization Address [facility] Co de Phone Number [facility] [address] [place] [address] * (ABNORMAL) Creatinine, serum (07/16/2024 3:00 AM EDT) Only the most recent of3 resultswithin the time period is included. Creatinine 5.16(H) 0.70 - 1.30 mg/dL [facility] 07/16/2024 3:00 AM EDT 07/17/2024 5:20 PM EDT Obed Aleman MD LAB BLOOD ORDERABLES Final Result Performing Organization Address [facility] de Phone Number [facility] [address] [place] [address] * Bilirubin, total (07/16/2024 3:00 AM EDT) Only the most recent of3 resultswithin the time period is included. Total Bilirubin 0.3 0.3 - 1.2 mg/dL [facility] 07/16/2024 3:00 AM EDT 07/17/2024 5:20 PM EDT Obed Aleman MD LAB BLOOD ORDERABLES Final Result Performing Organization Address [facility] de Phone Number [facility] [address] [place] [address] * (ABNORMAL) Electrolyte panel (07/16/2024 3:00 AM [...] BLOOD ORDERABLES Final Result Performing Organization Address City/[facility]/ZIP Co de Phone Number [facility] [address] [place] [address] * (ABNORMAL) Hemoglobin (07/02/2024 3:00 AM EDT) Only the most recent of3 resultswithin the time period is included. Hgb 11.1(L) 13.7 - 17.5 g/dL [facility] Hemoglobin x 3 33.3(L) 41.1 - 52.5 g/dL [facility] 07/02/2024 3:00 AM EDT 07/03/2024 12:36 PM EDT us Obed Aleman MD LAB BLOOD ORDERABLES Final Result Performing Organization Address [facility] Co de Phone Number [facility] [address] [place] [address] * Collection Date (06/27/2024 3:00 AM EDT) Collection Date See Comment [facility] Comment: Patient sample received may exceed specimen stability, based on the collection date electronically provided. ??When reviewing patient results, verify collection information and consider specimen stability before acting on any critical or panic results. 06/27/2024 3:00 AM EDT Obed Aleman MD LAB HISTORICA [id number] RESULTS Final Result Performing Organization Address [facility] Co de Phone Number [facility] [address] [place] [address] * (ABNORMAL) PTH, Intact (06/11/2024 3:00 AM EDT) PTH, Intact 23(L) 160 - 721 pg/mL [facility] Comment: Suggested (KDIGO) ESRD maintenance range is two to nine times the upper normal limit (80.1 pg/mL) for the laboratory. 06/11/2024 3:00 AM EDT 06/13/2024 1:42 PM EDT Obed Aleman MD LAB BLOOD ORDERABLES Final Result Performing Organization Address [facility] de Phone Number [facility] [address] [place] [address] * (ABNORMAL) Hemoglobin A1c (06/11/2024 3:00 AM [...] BLOOD ORDERABLES Final Result Performing Organization Address [facility] de Phone Number [facility] [address] [place] [address] * (ABNORMAL) Lipid panel (06/11/2024 3:00 AM [...] BLOOD ORDERABLES Final Result Performing Organization Address [facility] de Phone Number [facility] [address] [place] [address] * Phosphorus (05/28/2024 3:00 AM EDT) Phosphorus, Serum 3.8 2.5 - 5.0 mg/dL [facility] 05/28/2024 3:00 AM EDT 05/29/2024 12:39 PM EDT Obed Aleman MD LAB BLOOD ORDERABLES Final Result Performing Organization Address [facility] de Phone Number [facility] [address] [place] [address] from Last 3 Months Insurance [facility] [id number] Medicare [facility] [id number] Medicare Medicaid [place] Care Teams City Bus Driver Relationship Specialty Start Date End Date Maximiliano Schmidt MD [address] [place] [phone] PCP - General Internal Medicine 07/29/23
--- OUTSIDE RECORDS SUMMARY | 2024-07-29 14:49 | XMS_ITS | Data Portability ---
Author Organization [place] [facility] Address [address] [place] [address] Care Team Providers Care Documentation Lead Name Role Phone HYUN FALCON Primary [...] , dipstick 2018 krissy Spr - Home, [address] [place] [address], [phone], 9 09:54:29 culture, urine - Collected by [facility] 2018 MARQUISE [facility] (Centralized Electronic Ordering - All Locations), Patient Can Go To The Location Of Their Choice, [id number] 9 13:06:07 Referral None recorded. Procedures None recorded. Surgeries None recorded. Imaging None recorded. Medication Orders cephalexin 500 mg capsule 2018 019 nyuzych [id number], [address] [place], [address], 9 09:54:29 Keflex 500 mg capsule 2018 019 INTERFACE [id number], [address] [place], [address], 9 09:54:31 Patient TargetsNo targets recorded. Patient Instructions Encounter Date Encounter Id Patient Instructions Last Modified By Organization Details Last Modified Time 12/20/2018 [id number] URINARY TRACT INFECTION INSTRUCTIONS YOU HAVE A [...] condition between 8am-10pm, please call [facility] at [phone] to help navigate your care. krissy Not available 12/20/2018 09:54:27 Reason for Referral None Reported. Results Created Date Observation Date Name Description Value Unit Range Abnormal Flag Note LastModifiedBy Organization Detail LastModifiedTime 12/21/1912/20/2018 urina lysis , dipst ick Appearance cloudy Not Available Spr - [facility] [address] [place], [address], 12/20/2018 09:43:21 12/21/1912/20/2018 urina lysis , dipst ick Color yellow Not Available Spr - Home [address] [place], [address], 12/20/2018 09:43:21 12/21/1912/20/2018 urina lysis , dipst ick Glucose negati ve Not Available Spr - Home [address] [place], [address], 12/20/2018 09:43:21 12/21/19 19 12/20/2018 urina lysis , dipst ick Bilirubin negati ve Not Available Spr - Home [address] [place], [address], 12/20/2018 09:43:21 12/21/19 19 12/20/2018 urina lysis , dipst ick Ketones NEG Not Available Spr - Home [address] [place], [address], 12/20/2018 09:43:21 12/21/19 19 12/20/2018 urina lysis , dipst ick Sp. [place] 1.030 Not Available Spr - Home [address] [place], [address], 12/20/2018 09:43:21 12/21/19 19 12/20/2018 urina lysis , dipst ick Blood +++ Not Available Spr - Home [address] [place], [address], 12/20/2018 09:43:21 12/21/1912/20/2018 urina lysis , dipst ick pH 5.0 Not Available Spr - Home [address] [place], [address], 12/20/2018 09:43:21 12/21/1912/20/2018 urina lysis , dipst ick Protein positi ve Not Available Spr - Home [address] [place], [address], 12/20/2018 09:43:21 12/21/1912/20/2018 urina lysis , dipst ick Urobilirubin negati ve Not Available Spr - Home [address] [place], [address], 12/20/2018 09:43:21 12/21/1912/20/2018 urina lysis , dipst ick Nitrites +++ Not Available Spr - [facility] [address] [place], [address], 12/20/2018 09:43:21 12/21/1912/20/2018 urina lysis , dipst ick Leukocytes +++ Not Available Spr - H ome [address] [place], [address], 12/20/2018 09:43:21 12/21/19 19 12/20/2018 cultu re, urine specimen description URINE Not Available [facility] ([facility] - All Locations) Patient Can Go To The Location Of Their Choice, [id number] 12/22/2018 13:06:06 12/21/1912/20/2018 cultu re, urine special requests NONE Not Available [facility] (Centralized [facility] Ordering - All Locations) Patient Can Go To The Location Of Their Choice, [id number] 12/22/2018 13:06:06 12/21/1912/22/2018 cultu re, urine culture >100,0 00 COL/ML KLEBSI BAILEY PNEUMO NIAE abnormal Not Available [facility] (Centralized Electronic Ordering - All Locations) Patient Can Go To The Location Of Their Choice, [id number] 12/22/2018 13:06:06 12/21/1912/22/2018 cultu re, urine report status FINAL 2018 Not Available [facility] (Centralized Electronic Ordering - All Locations) Patient Can Go To The Location Of Their Choice, [id number] 12/22/2018 13:06:06 12/21/1912/22/2018 cultu re, urine organism [...] Go To The Location Of Their Choice, [id number] 12/22/2018 13:06:06 12/21/1912/22/2018 cultu re, urine piperacillin /tazobactam PIPERA CILLIN /TAZOB AC SUSCEP TIBLE susceptib le Not Available [facility] (Centralized Electronic Ordering - All Locations) Patient Can Go To The Location Of Their Choice, [id number] 12/22/2018 13:06:06 12/21/1912/22/2018 cultu re, urine trimeth/sulf amethox TRIMET H/SULF AMETHO X SUSCEP TIBLE susceptib le Not Available [facility] (Centralized Electronic Ordering - All Locations) Patient Can Go To The Location Of Their Choice, [id number] 12/22/2018 13:06:06 12/21/1912/22/2018 cultu re, urine tetracycline TETRAC YCLINE SUSCEP TIBLE susceptib le Not Available [facility] (Centralized Electronic Ordering - All Locations) Patient Can Go To The Location Of Their Choice, [id number] 12/22/2018 13:06:06 Result Notes None recorded. Medical [...] [degF] 160 mm[Hg] 80 mm[Hg] Not Available [facility] 9 09:32:19 Social History Question Answer Notes LastModified by Organizat ion Details LastModified Time Tobacco Smoking Status Never Smoker LIDA CASAS [address] [place], [address], [place] [facility] 12/20/2018 09:34:50 Do You [...] Organization Details LastModified Time Father Diabetes mellitus [email or web address] Not available 2018 09:33:51 Sister Malignant neoplasm of brain [email or web address] Not available 2018 09:34:19 Medical History Condition Response Diabetes Y Coronary Artery Disease N High Cholesterol Y Pulmonary Embolism N Cancer N Hypertension Y Stroke N COPD N Depression N Asthma N Kidney Disease Y Past Encounters Encounter ID Performer Location Encounter Start Date Encounter Closed Date Diagnosis/Indication Diagnosis SNOMED-CT Code Diagnosis ICD10 Code Diagnosis Note [id number] [facility] [address] [facility] [place] [address] 12/20/2018 09:28:30 12/22/2018 11:41:07 Urinary tract infectious disease 74891509 N39.0 Acute condition Increased frequency of urination 415357320 R35.0 Dysuria 13376121 R30.9 Diabetes mellitus 466151 09 E11.9 chronic condition Health Concerns Section Related Observation LastModified by Organization Detai ls LastModified Time None Recorded Concern Status LastModified by Organization Details LastModified Time None Recorded Advance Directives Directive N: Payers Insurance Date Sequence Insurance Name Policy Number Policy Vasquez Covered Member ID Vasquez Member ID Guarantor Name 12/20/2018 1 *SELF PAY* Hardeep Howard [id number] Hardeep Howard 12/20/2018 2 A[employer] (MEDICARE SUPPLEMENT) Hardeep Howard [id number] Hardeep Howard 12/22/2018 1 [place] [employer] [employer] Hardeep Howard [id number] Hardeep Howard Notes Date Note Type Note [...] Diabetes, HTN, HLD, CKD LIDA CASAS [address] [place], [address], [place] [facility] 12/20/2018 10:34:52
[2024-07-29 15:33] LABS: CDiff Gene PCR NEGATIVE (Negative)
== END 2024-07-29 14:41 | disposition home or self-care (01) ==
LOC: HO.MMNH1L 14:40
PROVIDERS: Visit Provider Nurse Practitioner Family
DX: M62.521 Muscle wasting and atrophy, not elsewhere classified, right upper arm (principal); E46 Unspecified protein-calorie malnutrition; Z93.2 Ileostomy status
CPT/HCPCS: 87493

== ENCOUNTER 2024-08-04 06:33 | Outpatient (REF) | payer MEDICARE, SELFPAY ==
[2024-08-04 05:59] LABS: MANUAL DIFF FLAG NO
[2024-08-04 06:23] LABS: Basophils Percent Auto 0.4 % (0-2); Eosinophils Absolute Auto 0.4 X10*3/uL (0.0-0.4); Eosinophils Percent Auto 3.7 % (0-4); Hematocrit 37.7 % (42.0-52.0); Hemoglobin 12.2 g/dl (14.0-18.0); Imm Gran Abs Auto 0.06 X10*3/uL (0.00-0.03); Imm Gran Pct Auto 0.6 % (0.0-0.4); Lymphocytes Absolute Auto 1.6 X10*3/uL (1.2-4.9); Mean Corpuscular HGB Conc 32.4 g/dl (31.0-36.0); Mean Corpuscular Hemoglobin 30.4 pg (27.0-33.0); Mean Platelet Volume 9.6 fL (9.4-12.4); Monocytes Absolute Auto 0.9 X10*3/uL (0.1-1.2); Neutrophils Absolute Auto 6.7 x10*3/uL (2.0-8.3); Neutrophils Percent Auto 69.3 % (45-73); Platelet Count 177 X10*3/uL (160-400); Red Blood Count 4.01 X10*6/uL (4.60-5.80); Red Cell Distribution Width 14.6 % (11.0-16.0); White Blood Count 9.7 X10*3/uL (4.8-10.8)
--- OUTSIDE RECORDS SUMMARY | 2024-08-04 06:35 | XMS_ITS | Encounter Summary ---
Author Organization [facility] Address [address] [place] [address] Phone Care Team Providers Care Nut Sheller Name Role Phone Maximiliano Schmidt MD Primary Care Provider [phone] Encounter Details Date Type Department Care Team (Late st Contact Info) Description 08/24/2020 Orders Only [facility] [address] [place] [address] Provider, MD Laura [address] [place] [id number] Social History Tobacco Use Types Packs/Day [...] on filedocumented in this encounter Care Teams Nut Sheller Relationship Specialty Start Date End Date Maximiliano Schmidt MD [address] [place] [phone] PCP - General Internal Medicine 07/29/23 documented as of this encounter
[2024-08-04 07:19] LABS: Anion Gap 20 (12-20); Blood Urea Nitrogen 69 mg/dL (9-16); Carbon Dioxide 16 mmol/L (22-29); Chloride 101 mmol/L (96-108); Glucose Random 217 mg/dL (60-115); Potassium 5.5 mmol/L (3.3-5.1); Sodium 131 mmol/L (135-145)
[2024-08-04 07:24] LABS: Estimated Glomerular Filt Rate 8
== END 2024-08-04 06:34 | disposition home or self-care (01) ==
LOC: HO.MMNH1L 06:33
PROVIDERS: Visit Provider Student in an Organized Health Care Education/Training Program
DX: E11.9 Type 2 diabetes mellitus without complications (principal); I10 Essential (primary) hypertension
CPT/HCPCS: 36415; 80048; 85025

== ENCOUNTER 2024-08-10 05:51 | Outpatient (REF) | payer MEDICARE, SELFPAY ==
[2024-08-10 05:49] LABS: MANUAL DIFF FLAG NO
--- OUTSIDE RECORDS SUMMARY | 2024-08-10 05:54 | XMS_ITS | Encounter Summary ---
Author Organization [facility] Address [address] [place] [address] Phone Care Team Providers Care Cps Team Lead Name Role Phone Maximiliano Schmidt MD Primary Care Provider [phone] Encounter Details Date Type Department Care Team (Late st Contact Info) Description 08/24/2020 Orders Only [facility] [address] [place] [phone] Provider, MD Laura Social History Tobacco Use Types Packs/Day Years [...] on filedocumented in this encounter Care Teams Cps Team Lead Relationship Specialty Start Date End Date Maximiliano Schmidt MD [address] [place] [phone] PCP - General Internal Medicine 07/29/23 documented as of this encounter
[2024-08-10 06:41] LABS: Anion Gap 16 (12-20); Blood Urea Nitrogen 49 mg/dL (9-16); Calcium 9.7 mg/dL (8.4-10.2); Carbon Dioxide 23 mmol/L (22-29); Chloride 101 mmol/L (96-108); Estimated Glomerular Filt Rate 9; Glucose Random 332 mg/dL (60-115); Potassium 5.4 mmol/L (3.3-5.1); Sodium 135 mmol/L (135-145)
[2024-08-10 06:55] LABS: Basophils Absolute Auto 0.1 X10*3/uL (0.0-0.2); Basophils Percent Auto 0.5 % (0-2); Eosinophils Absolute Auto 0.2 X10*3/uL (0.0-0.4); Eosinophils Percent Auto 1.9 % (0-4); Hematocrit 37.5 % (42.0-52.0); Hemoglobin 11.9 g/dl (14.0-18.0); Imm Gran Abs Auto 0.09 X10*3/uL (0.00-0.03); Imm Gran Pct Auto 0.8 % (0.0-0.4); Lymphocytes Absolute Auto 1.2 X10*3/uL (1.2-4.9); Lymphocytes Percent Auto 10.6 % (20-40); Mean Corpuscular HGB Conc 31.7 g/dl (31.0-36.0); Mean Corpuscular Hemoglobin 30.4 pg (27.0-33.0); Mean Corpuscular Volume 95.9 fL (80.0-98.0); Mean Platelet Volume 9.5 fL (9.4-12.4); Monocytes Absolute Auto 0.8 X10*3/uL (0.1-1.2); Monocytes Percent Auto 7.4 % (2-11); Neutrophils Absolute Auto 8.7 x10*3/uL (2.0-8.3); Neutrophils Percent Auto 78.8 % (45-73); Platelet Count 195 X10*3/uL (160-400); Red Blood Count 3.91 X10*6/uL (4.60-5.80); Red Cell Distribution Width 14.7 % (11.0-16.0); White Blood Count 11.1 X10*3/uL (4.8-10.8)
== END 2024-08-10 05:52 | disposition home or self-care (01) ==
LOC: HO.MMNH1L 05:51
PROVIDERS: Visit Provider Student in an Organized Health Care Education/Training Program
DX: E11.9 Type 2 diabetes mellitus without complications (principal); I10 Essential (primary) hypertension
CPT/HCPCS: 36415; 80048; 85025

== ENCOUNTER 2024-08-17 05:45 | Outpatient (REF) | payer MEDICARE, SELFPAY ==
[2024-08-17 05:34] LABS: MANUAL DIFF FLAG NO
--- OUTSIDE RECORDS SUMMARY | 2024-08-17 05:48 | XMS_ITS | Encounter Summary ---
Author Organization [facility] Address [address] [place] [address] Phone Care Team Providers Care Medical Office Specialist Name Role Phone Maximiliano Schmidt MD Primary Care Provider [phone] Encounter Details Date Type Department Care Team (Late st Contact Info) Description 08/24/2020 Orders Only [facility] [address] [place] [phone] Provider, MD Laura Social History Tobacco Use [...] on filedocumented in this encounter Care Teams Medical Office Specialist Relationship Specialty Start Date End Date Maximiliano Schmidt MD [address] [place] [phone] PCP - General Internal Medicine 07/29/23 documented as of this encounter
[2024-08-17 06:07] LABS: Basophils Percent Auto 0.4 % (0-2); Eosinophils Absolute Auto 0.4 X10*3/uL (0.0-0.4); Eosinophils Percent Auto 3.7 % (0-4); Hematocrit 32.7 % (42.0-52.0); Hemoglobin 10.7 g/dl (14.0-18.0); Imm Gran Abs Auto 0.08 X10*3/uL (0.00-0.03); Imm Gran Pct Auto 0.7 % (0.0-0.4); Lymphocytes Absolute Auto 1.6 X10*3/uL (1.2-4.9); Lymphocytes Percent Auto 14.6 % (20-40); Mean Corpuscular HGB Conc 32.7 g/dl (31.0-36.0); Mean Corpuscular Hemoglobin 31.3 pg (27.0-33.0); Mean Corpuscular Volume 95.6 fL (80.0-98.0); Mean Platelet Volume 9.4 fL (9.4-12.4); Monocytes Percent Auto 9.2 % (2-11); Neutrophils Absolute Auto 7.7 x10*3/uL (2.0-8.3); Neutrophils Percent Auto 71.4 % (45-73); Platelet Count 198 X10*3/uL (160-400); Red Blood Count 3.42 X10*6/uL (4.60-5.80); Red Cell Distribution Width 15.2 % (11.0-16.0); White Blood Count 10.8 X10*3/uL (4.8-10.8)
[2024-08-17 06:40] LABS: Anion Gap 15 (12-20); Blood Urea Nitrogen 38 mg/dL (9-16); Calcium 9.4 mg/dL (8.4-10.2); Carbon Dioxide 25 mmol/L (22-29); Chloride 96 mmol/L (96-108); Glucose Random 251 mg/dL (60-115); Potassium 4.7 mmol/L (3.3-5.1); Sodium 131 mmol/L (135-145)
[2024-08-17 07:13] LABS: Estimated Glomerular Filt Rate 10
== END 2024-08-17 05:46 | disposition home or self-care (01) ==
LOC: HO.MMNH1L 05:45
PROVIDERS: Visit Provider Student in an Organized Health Care Education/Training Program
DX: E11.9 Type 2 diabetes mellitus without complications (principal); I10 Essential (primary) hypertension
CPT/HCPCS: 36415; 80048; 85025

== ENCOUNTER 2024-08-24 05:49 | Outpatient (REF) | payer MEDICARE, SELFPAY ==
[2024-08-24 05:43] LABS: MANUAL DIFF FLAG NO
--- OUTSIDE RECORDS SUMMARY | 2024-08-24 05:52 | XMS_ITS | Encounter Summary ---
Author Organization [facility] Address [address] [place] [address] Phone Care Team Providers Care Boat Tender Name Role Phone Maximiliano Schmidt MD Primary Care Provider [phone] Encounter Details Date Type Department Care Team (Late st Contact Info) Description 08/24/2020 Orders Only [facility] [address] [place] [phone] Provider, MD Laura Social History Tobacco Use [...] on filedocumented in this encounter Care Teams Boat Tender Relationship Specialty Start Date End Date Maximiliano Schmidt MD [address] [place] [phone] PCP - General Internal Medicine 07/29/23 documented as of this encounter
[2024-08-24 06:50] LABS: Anion Gap 16 (12-20); Blood Urea Nitrogen 50 mg/dL (9-16); Calcium 9.7 mg/dL (8.4-10.2); Carbon Dioxide 23 mmol/L (22-29); Chloride 101 mmol/L (96-108); Estimated Glomerular Filt Rate 9; Glucose Random 225 mg/dL (60-115); Potassium 5.4 mmol/L (3.3-5.1); Sodium 135 mmol/L (135-145)
[2024-08-24 07:04] LABS: Basophils Percent Auto 0.3 % (0-2); Eosinophils Absolute Auto 0.3 X10*3/uL (0.0-0.4); Eosinophils Percent Auto 3.4 % (0-4); Hematocrit 33.8 % (42.0-52.0); Hemoglobin 10.6 g/dl (14.0-18.0); Imm Gran Abs Auto 0.09 X10*3/uL (0.00-0.03); Lymphocytes Absolute Auto 1.6 X10*3/uL (1.2-4.9); Lymphocytes Percent Auto 17.3 % (20-40); Mean Corpuscular HGB Conc 31.4 g/dl (31.0-36.0); Mean Corpuscular Hemoglobin 31.1 pg (27.0-33.0); Mean Corpuscular Volume 99.1 fL (80.0-98.0); Mean Platelet Volume 9.5 fL (9.4-12.4); Monocytes Absolute Auto 0.7 X10*3/uL (0.1-1.2); Monocytes Percent Auto 7.8 % (2-11); Neutrophils Absolute Auto 6.3 x10*3/uL (2.0-8.3); Neutrophils Percent Auto 70.2 % (45-73); Platelet Count 231 X10*3/uL (160-400); Red Blood Count 3.41 X10*6/uL (4.60-5.80); Red Cell Distribution Width 15.5 % (11.0-16.0)
== END 2024-08-24 05:50 | disposition home or self-care (01) ==
LOC: HO.MMNH1L 05:49
PROVIDERS: Visit Provider Student in an Organized Health Care Education/Training Program
DX: Z13.89 Encounter for screening for other disorder (principal)
CPT/HCPCS: 36415; 80048; 85025

== ENCOUNTER 2024-08-31 05:55 | Outpatient (REF) | payer MEDICARE, SELFPAY ==
[2024-08-31 05:57] LABS: MANUAL DIFF FLAG NO
--- OUTSIDE RECORDS SUMMARY | 2024-08-31 05:57 | XMS_ITS | Encounter Summary ---
Author Organization [facility] Address [address] [place] [address] Phone Care Team Providers Care Petroleum Plant Operator Name Role Phone Maximiliano Schmidt MD Primary Care Provider [phone] Encounter Details Date Type Department Care Team (Late st Contact Info) Description 08/24/2020 Orders Only [facility] [address] [place] [phone] Provider, MD Laura Social History Tobacco Use [...] on filedocumented in this encounter Care Teams Petroleum Plant Operator Relationship Specialty Start Date End Date Maximiliano Schmidt MD [address] [place] [phone] PCP - General Internal Medicine 07/29/23 documented as of this encounter
[2024-08-31 07:11] LABS: Anion Gap 18 (12-20); Blood Urea Nitrogen 52 mg/dL (9-16); Calcium 9.8 mg/dL (8.4-10.2); Carbon Dioxide 22 mmol/L (22-29); Chloride 98 mmol/L (96-108); Glucose Random 173 mg/dL (60-115); Potassium 4.9 mmol/L (3.3-5.1); Sodium 133 mmol/L (135-145)
[2024-08-31 07:19] LABS: Basophils Percent Auto 0.4 % (0-2); Eosinophils Absolute Auto 0.4 X10*3/uL (0.0-0.4); Eosinophils Percent Auto 4.6 % (0-4); Hematocrit 32.9 % (42.0-52.0); Hemoglobin 10.4 g/dl (14.0-18.0); Imm Gran Abs Auto 0.06 X10*3/uL (0.00-0.03); Imm Gran Pct Auto 0.6 % (0.0-0.4); Lymphocytes Absolute Auto 1.7 X10*3/uL (1.2-4.9); Lymphocytes Percent Auto 17.8 % (20-40); Mean Corpuscular HGB Conc 31.6 g/dl (31.0-36.0); Mean Corpuscular Hemoglobin 30.9 pg (27.0-33.0); Mean Corpuscular Volume 97.6 fL (80.0-98.0); Mean Platelet Volume 9.6 fL (9.4-12.4); Monocytes Absolute Auto 0.9 X10*3/uL (0.1-1.2); Neutrophils Absolute Auto 6.5 x10*3/uL (2.0-8.3); Neutrophils Percent Auto 67.6 % (45-73); Platelet Count 208 X10*3/uL (160-400); Red Blood Count 3.37 X10*6/uL (4.60-5.80); White Blood Count 9.6 X10*3/uL (4.8-10.8)
[2024-08-31 07:27] LABS: Estimated Glomerular Filt Rate 9
== END 2024-08-31 05:56 | disposition home or self-care (01) ==
LOC: HO.MMNH1L 05:55
PROVIDERS: Visit Provider Student in an Organized Health Care Education/Training Program
DX: I10 Essential (primary) hypertension (principal); E11.8 Type 2 diabetes mellitus with unspecified complications
CPT/HCPCS: 36415; 80048; 85025

== ENCOUNTER 2024-09-07 07:51 | Outpatient (REF) | payer MEDICARE, SELFPAY ==
[2024-09-07 06:40] LABS: MANUAL DIFF FLAG NO
[2024-09-07 06:51] LABS: Basophils Absolute Auto 0.1 X10*3/uL (0.0-0.2); Basophils Percent Auto 0.6 % (0-2); Eosinophils Absolute Auto 0.3 X10*3/uL (0.0-0.4); Hematocrit 32.6 % (42.0-52.0); Hemoglobin 10.3 g/dl (14.0-18.0); Imm Gran Abs Auto 0.03 X10*3/uL (0.00-0.03); Imm Gran Pct Auto 0.4 % (0.0-0.4); Lymphocytes Absolute Auto 1.3 X10*3/uL (1.2-4.9); Lymphocytes Percent Auto 16.2 % (20-40); Mean Corpuscular HGB Conc 31.6 g/dl (31.0-36.0); Mean Corpuscular Hemoglobin 31.2 pg (27.0-33.0); Mean Corpuscular Volume 98.8 fL (80.0-98.0); Mean Platelet Volume 9.4 fL (9.4-12.4); Monocytes Absolute Auto 0.7 X10*3/uL (0.1-1.2); Monocytes Percent Auto 8.5 % (2-11); Neutrophils Absolute Auto 5.7 x10*3/uL (2.0-8.3); Neutrophils Percent Auto 70.3 % (45-73); Platelet Count 196 X10*3/uL (160-400); Red Cell Distribution Width 15.9 % (11.0-16.0); White Blood Count 8.1 X10*3/uL (4.8-10.8)
[2024-09-07 07:08] LABS: Anion Gap 16 (12-20); Blood Urea Nitrogen 49 mg/dL (9-16); Calcium 9.6 mg/dL (8.4-10.2); Carbon Dioxide 25 mmol/L (22-29); Chloride 101 mmol/L (96-108); Estimated Glomerular Filt Rate 9; Glucose Random 222 mg/dL (60-115); Potassium 4.9 mmol/L (3.3-5.1); Sodium 137 mmol/L (135-145)
--- OUTSIDE RECORDS SUMMARY | 2024-09-07 07:54 | XMS_ITS | Encounter Summary ---
Author Organization [facility] Address [address] [place] [address] Phone Care Team Providers Care Maintainer Operator Name Role Phone Maximiliano Schmidt MD Primary Care Provider [phone] Encounter Details Date Type Department Care Team (Late st Contact Info) Description 08/24/2020 Orders Only [facility] [address] [place] [phone] Provider, MD Laura Social History Tobacco Use [...] on filedocumented in this encounter Care Teams Maintainer Operator Relationship Specialty Start Date End Date Maximiliano Schmidt MD [address] [place] [phone] PCP - General Internal Medicine 07/29/23 documented as of this encounter
== END 2024-09-07 07:52 | disposition home or self-care (01) ==
LOC: HO.MMNH1L 07:51
PROVIDERS: Visit Provider Student in an Organized Health Care Education/Training Program
DX: E11.9 Type 2 diabetes mellitus without complications (principal); I10 Essential (primary) hypertension
CPT/HCPCS: 36415; 80048; 85025